=== PATIENT | female | born 1975 ===

== ENCOUNTER 2020-06-23 09:31 | Outpatient (REF) | payer OTHER, SELFPAY | END 2020-06-23 09:32 | disposition home or self-care (01) | LOC: HO.LAB 09:31 | PROVIDERS: PCP Internal Medicine; Visit Provider Internal Medicine | DX: Z20.822 Contact with and (suspected) exposure to COVID-19 (principal) | CPT/HCPCS: 36415; C9803; U0003 ==

== ENCOUNTER → 2020-07-15 15:19 | Outpatient (BNVA) | payer OTHER, SELFPAY | PROVIDERS: PCP Internal Medicine; Visit Provider Urology ==

== ENCOUNTER 2020-09-13 12:33 | Outpatient (REF) | payer OTHER, SELFPAY ==
[2020-09-13 15:58] LABS: SARS COV2 PCR INHOUSE NEGATIVE (Negative)
== END 2020-09-13 12:34 | disposition home or self-care (01) ==
LOC: HO.LAB 12:33
PROVIDERS: Visit Provider Internal Medicine
DX: Z20.822 Contact with and (suspected) exposure to COVID-19 (principal)
CPT/HCPCS: C9803; U0003

== ENCOUNTER 2020-10-27 09:25 | Emergency (ER) | payer OTHER, SELFPAY ==
--- NOTE | ~2020-10-27 | CT_ITS ---
EXAMINATION: CT ABDOMEN AND PELVIS WITHOUT CONTRAST CLINICAL INFORMATION: Right flank pain COMPARISON: Previous CT of the abdomen and pelvis October 2019 TECHNIQUE: Multidetector volumetric imaging was performed from the superior aspect of the liver through the pubic symphysis. Sagittal and coronal reformatted images were obtained on the technologist's workstation. This CT examination was performed using dose optimization techniques as appropriate, variously including the following: *Automated exposure control *Adjustment of mA and/or kV according to patient size (this includes techniques or standardized protocols for targeted exams where dose is matched to indication/reason for exam; i.e. extremities or head) *Use of iterative reconstruction technique DLP: 472 mGy-cm FINDINGS: LUNG BASES: The visualized lung bases are unremarkable. LIVER, GALLBLADDER, AND BILIARY TREE: The liver is normal in size, shape, and attenuation. No focal hepatic lesion or biliary ductal dilatation is present. The gallbladder is unremarkable with no evidence of radiopaque gallstones, gallbladder wall thickening, or obvious pericholecystic inflammatory changes. PANCREAS: Unremarkable. SPLEEN: Unremarkable. ADRENAL GLANDS: Unremarkable. KIDNEYS AND URETERS: The right kidney is small. There is severe right hydronephrosis. There is right renal cortical thinning suggestive of long-standing obstruction. There are 2 stones in the lower pole right kidney measuring 5 and 6 mm. There is serpiginous linear calcification along the periphery of the dilated calyces. This may be the residual of medullary nephrocalcinosis and long-standing hydronephrosis. There are 2 small stones in the right proximal ureter. There are multiple left renal stones suggestive of medullary nephrocalcinosis. There are large discrete stone seen. The largest are in the lower pole of the left kidney conforming to a calyceal cast measuring 1.1 x 1.8 cm. There is mild left hydronephrosis. No left ureteral stone is seen. BLADDER: Unremarkable. GASTROINTESTINAL TRACT: There is diverticulosis of the colon. The small and large bowel is otherwise unremarkable. The appendix is normal. The stomach is normal. ABDOMINAL WALL: There are postsurgical changes from right lateral abdominal wall hernia repair with mesh. LYMPH NODES: Normal. VASCULAR: Unremarkable. PELVIC VISCERA: The uterus retroverted and appears enlarged. This is similar to previous exams. Adnexa are unremarkable. OSSEOUS STRUCTURES: Unremarkable. CT/CT abdomen pelvis wo con IMPRESSION: Medullary nephrocalcinosis. Atrophic-appearing right kidney. Right hydronephrosis and cortical thinning suggestive of long-standing obstruction. There are 2 adjacent small right proximal ureteral stones. There are 2 stones in the lower pole of the right kidney largest measuring 6 mm. Multiple left renal stones, largest filling a lower pole calyx measuring 1.1 x 1.8 cm. Mild left hydronephrosis. No left ureteral stone seen. Diverticulosis of the colon.
[2020-10-27 09:27] VITALS: BP 120/76; PULSE 88; RESP 16; TEMP 36.9; O2SAT 100; BMI 25.9
[2020-10-27 09:53] VITALS: BP 138/81; PULSE 79; RESP 12; TEMP 36.6; O2SAT 100
--- NOTE | 2020-10-27 11:02 | ED.ABDPAIN ---
HPI - Abdominal Pain General Chief Complaint: General Medical Stated Complaint: kidney pain Time Seen by Provider: 10/27/20 10:39 Source: patient Mode of arrival: ambulatory Limitations: no limitations History of Present Illness HPI narrative: 45-year-old female with a past medical history of large kidney stones requiring surgery, chronic UTIs, anemia and hypertension presenting to the ED with complaints of right flank pain for the past week with associated generalized weakness. Reports that she followed up with her primary care provider for hypertension, urinary symptoms and concern for her anemia. Per her PCP notes that the patient brought in with her; the patient had moderate blood and heavy leukocytes and she could not exclude nephrolithiasis in conjunction with UTI therefore she explained to the patient that she should have a CT scan of her abdomen and pelvis to rule out kidney stones. Patient is being followed by Dr. Estevez the urologist and Dr. Schroeder the line painting machine operator. From her PCP notes patient is also supposed to be taking iron supplements for her iron deficiency anemia although she reports she has not been taking it due to the side effect of constipation. Therefore her PCP recommended stool softeners for alternative like iron infusions and I believe that they are still discussing this. MD elicited complaint: flank pain Pertinent past history: kidney stones Onset (ago): week(s) (One week) Pain Consistency: constant Location: R flank Severity: moderate Quality: aching Radiation: none Migration to: no migration Exacerbating factors: nothing Relieving factors: nothing Associated symptoms: other (General weakness and fatigue) Related Data Home Medications Medication Instructions Recorded Confirmed hydrochlorothiazide 12.5 mg tablet 12.5 mg PO DAILY 07/15/20 Previous Rx's Medication Instructions Recorded acetaminophen [Tylenol Extra 1,000 mg PO QID PRN #14 tab 10/27/20 Strength] docusate sodium [Colace] 100 mg PO BID PRN #14 cap 10/27/20 levofloxacin 250 mg PO DAILY 7 Days #7 tab 10/27/20 oxycodone 5 mg PO BID PRN #10 tab 10/27/20 polyethylene glycol 3350 [Miralax] 17 g PO DAILY #238 g 10/27/20 Allergies Allergy/AdvReac Type Severity Reaction Status Date / Time No Known Allergies Allergy Unknown NONE Verified 10/27/20 09:31 Review of Systems Review of Systems Constitutional : No Weight loss, No Fever, No Chills, No Night Sweats, No Fatigue, NoMalaise ENT/Mouth: No ear pain, No sore throat, No Difficulty swallowing Cardiovascular : No Chest Pain, No SOB, No Dyspnea on Exertion, No Orthopnea, NoEdema, No Palpitations Respiratory : No Cough, No Sputum, No Wheezing, No Dyspnea Gastrointestinal : positive r abd/flank pain, No Nausea, No Vomiting, No Diarrhea, No blood streaked emesis, No coffee-ground emesis, No gross hematemesis, No blood streak stool, No gross hematochezia, No Melena Genitourinary : No irregular bleeding, No Dysuria, No Urinary Frequency, No Hematuria,No Urinary Incontinence, No Urgency, No Flank Pain Musculoskeletal : No joint pain, No Myalgias, No Joint Swelling Skin : No Skin Lesions, No rash Neuro : positive general Weakness, No focal weakness, No Numbness, No Paresthesias, No Loss of Consciousness, No Dizziness, No Headache Psych : No Social Issues, Heme/Lymph: No Bruising, No Bleeding,No Lymphadenopathy Endocrine : No Polyuria, No Polydipsia, No Temperature Intolerance Yes all other systems are reviewed and are negative Physical Exam Vital Signs: Vital Signs: Last Vital Signs Temp 97.8 F 10/27/20 09:53 Pulse 79 10/27/20 09:53 Resp 12 10/27/20 09:53 BP 138/81 10/27/20 09:53 Pulse Ox 100 10/27/20 09:53 Body Mass Index 25.9 vital signs have been reviewed as normal and appeared to be correct. Blood pressure normal. Heart rate normal. Respiration rate normal. Temperature normal. Oxygen saturation normal. Appearance: Alert. Oriented X3. No acute distress. Head: Normal external exam. Normocephalic. Eyes: PERRLA. EOMI. Conjunctiva and sclera normal. Eyelids normal. ENT: Pharynx normal. Uvula midline. Moist mucous membranes. Neck: Normal inspection. Neck supple. FROM. No adenopathy. No meningeal signs. CVS: Normal heart rate and rhythm. Heart sound normal. No murmurs noted. Pulses normal throughout. Respiratory: No respiratory distress. Painless inspiration. Breath sounds normal. No wheezes/rales/rhonchi noted. Chest nontender. No accessory muscle usage noted or decreased air movement noted. Abdomen: Soft and tender to palpation to right flank with guarding. Nondistended. No rigidity. Bowel sounds normal in all 4 quadrants. No distention noted. No organomegaly noted. No visible injury noted. No rebound tenderness. Negative Rovsing sign. Negative obturator's sign. Negative psoas sign. Negative Flores sign. Back: Positive right CVA tenderness. No left CVA tenderness is noted. Full range of motion noted. Skin: Skin warm and dry. Normal skin color. Normal skin turgor. No rashes/lesions/lacerations noted. Extremities: Extremities exhibit normal range of motion. Extremities nontender. Neuro: Oriented X 3. No motor deficit. No sensory deficit. Reflexes normal. Normal steady gait. Course Course Course Narrative: 13:30 - labs reviewed and patient with an elevated white blood cell count at 11,000. - Mild anemia H&H at 9.4/32.5 this is lower when compared to 10/22/2019 which was 11.5/37.4.= I offered to obtain a stool occult although patient declined at this time reports that she just needs her iron supplements along with stool softeners due to she is not taking her iron supplements because they never prescribed her stool softeners. - BUN and creatinine 27/1.53 GFR of 37. This is similar when compared to patient's priors. - UA revealed leukocytes patient most likely a UTI. Serum quant negative for . - all other labs are within normal limits. - CT scan of abdomen and pelvis revealed stones to bilateral kidneys although she has chronic obstruction to the right with hydronephrosis. Therefore consulted with Dr. Estevez the urologist and he reported the pending on how the patient presented that he could take admit her for possible procedure - although when I went in to explain to the patient she reported that she will not be staying here for surgery that she needs to take care of her son situation before she states here in the hospital for surgery. Therefore will give L of IV fluids and will DC home with antibiotics and symptomatic treatment instructions to follow up with Dr. Estevez until follow-up with primary care provider as well. Patient understands agrees with this plan. MDM - Abdominal Pain MDM Narrative Medical decision making narrative: 10:55am -45-year-old female with a past medical history of large kidney stones requiring surgery, chronic UTIs, anemia and hypertension presenting to the ED with complaints of right flank pain for the past week with associated generalized weakness. Reports that she followed up with her primary care provider for hypertension, urinary symptoms and concern for her anemia. Had outpatient follow-up with PCP PCP unable to exclude nephrolithiasis in conjunction with UTI due to moderate leukocytes and hematuria and UA therefore sent here for further evaluation treatment for CT scan of abdomen and pelvis. - Plan: Labs, UA, UHCG, CT scan of abdomen and pelvis without IV contrast then re-evaluate. Patient declined any IV fluids or any pain medications at this time. Medical Records Attestation: I reviewed the patient's medical records. Lab Data Attestation: I reviewed the patient's lab results. Result diagrams: 10/27/20 11:26 10/27/20 11:26 Labs: Lab Results 10/27/20 10/27/20 10/27/20 Range/Units 11:26 11:26 11:26 WBC 11.0 H (4.8-10.8) X10*3/uL RBC 4.16 L (4.20-5.50) X10*6/uL Hgb 9.4 L (12.0-16.0) g/dl Hct 32.5 L (37-47) % MCV 78.1 L (80-98) fL MCH 22.6 L (27.0-33.0) pg MCHC 28.9 L (31.0-35.0) g/dl RDW 19.1 H (11.0-16.0) % Plt Count 386 (160-400) X10*3/uL MPV 10.0 (9.4-12.3) fL Immature Gran % (Auto) 0.5 H (0.0-0.4) % Neut % (Auto) 73.2 H (45-73) % Lymph % (Auto) 14.4 L (20-40) % [place] % (Auto) 10.0 (2-11) % Eos % (Auto) 1.3 (0-4) % Baso % (Auto) 0.6 (0-2) % Lymph # (Auto) 1.6 (1.2-4.9) X10*3/uL [place] # (Auto) 1.1 (0.1-1.2) X10*3/uL Eos # (Auto) 0.1 (0.0-0.4) X10*3/uL Baso # (Auto) 0.1 (0.0-0.2) X10*3/uL Abs Immat Gran (auto) 0.05 H (0.00-0.03) X10*3/uL Absolute Neuts (auto) 8.0 (2.0-8.3) X10*3/uL Absolute Nucleated RBC 0.000 (0.0-0.012) X10*3/uL Nucleated RBC % (auto) 0.0 (0.0-0.2) /100WBC PT 11.8 (10.8-13.0) SEC INR 1.0 (0.9-1.1) Sodium (135-145) mmol/L Potassium (3.3-5.1) mmol/L Chloride (96-108) mmol/L Carbon Dioxide (22-29) mmol/L Anion Gap (12-20) BUN (9-16) mg/dL Creatinine (0.5-1.4) mg/dL Estim Creat Clear Calc Estimated GFR Random Glucose (60-115) mg/dL Calcium (8.4-10.2) mg/dL Magnesium 2.2 (1.6-2.6) mg/dL Total Bilirubin (0.0-1.0) mg/dL AST (5-31) U/L ALT (0-31) U/L Alkaline Phosphatase (39-117) U/L Total Protein (6.5-8.0) g/dL Albumin (3.5-5.0) g/dL Lipase (8-78) U/L Beta HCG, Quant mIU/mL Urine Color Urine Appearance Urine pH (5.0-8.0) Ur Specific [place] (1.005-1.025) Urine Protein (NEG-TRACE) MG/DL Urine Glucose (UA) (NEG) MG/DL Urine Ketones (NEG) MG/DL Urine Blood (NEG) Urine Nitrite (NEG) Ur Leukocyte Esterase (NEG) Urine RBC (0) /HPF Urine WBC (0-4) /HPF Urine WBC Clumps Ur Squamous Epith Cells /LPF Ur Renal Epithelial Cell /LPF Urine Bacteria /LPF 10/27/20 10/27/20 Range/Units 11:26 11:26 WBC (4.8-10.8) X10*3/uL RBC (4.20-5.50) X10*6/uL Hgb (12.0-16.0) g/dl Hct (37-47) % MCV (80-98) fL MCH (27.0-33.0) pg MCHC (31.0-35.0) g/dl RDW (11.0-16.0) % Plt Count (160-400) X10*3/uL MPV (9.4-12.3) fL Immature Gran % (Auto) (0.0-0.4) % Neut % (Auto) (45-73) % Lymph % (Auto) (20-40) % [place] % (Auto) (2-11) % Eos % (Auto) (0-4) % Baso % (Auto) (0-2) % Lymph # (Auto) (1.2-4.9) X10*3/uL [place] # (Auto) (0.1-1.2) X10*3/uL Eos # (Auto) (0.0-0.4) X10*3/uL Baso # (Auto) (0.0-0.2) X10*3/uL Abs Immat Gran (auto) (0.00-0.03) X10*3/uL Absolute Neuts (auto) (2.0-8.3) X10*3/uL Absolute Nucleated RBC (0.0-0.012) X10*3/uL Nucleated RBC % (auto) (0.0-0.2) /100WBC PT (10.8-13.0) SEC INR (0.9-1.1) Sodium 138 (135-145) mmol/L Potassium 3.4 (3.3-5.1) mmol/L Chloride 101 (96-108) mmol/L Carbon Dioxide 29 (22-29) mmol/L Anion Gap 11 L (12-20) BUN 27 H (9-16) mg/dL Creatinine 1.53 H (0.5-1.4) mg/dL Estim Creat Clear Calc 41.7 Estimated GFR 37 Random Glucose 86 (60-115) mg/dL Calcium 9.3 (8.4-10.2) mg/dL Magnesium (1.6-2.6) mg/dL Total Bilirubin 0.3 (0.0-1.0) mg/dL AST 13 (5-31) U/L ALT 9 (0-31) U/L Alkaline Phosphatase 57 (39-117) U/L Total Protein 6.9 (6.5-8.0) g/dL Albumin 3.9 (3.5-5.0) g/dL Lipase 35 (8-78) U/L Beta HCG, Quant < 2 mIU/mL Urine Color YELLOW Urine Appearance HAZY Urine pH 6.5 (5.0-8.0) Ur Specific [place] 1.015 (1.005-1.025) Urine Protein NEG (NEG-TRACE) MG/DL Urine Glucose (UA) NEG (NEG) MG/DL Urine Ketones NEG (NEG) MG/DL Urine Blood 1+ H (NEG) Urine Nitrite NEG (NEG) Ur Leukocyte Esterase 2+ H (NEG) Urine RBC 5-9 H (0) /HPF Urine WBC 76-150 H (0-4) /HPF Urine WBC Clumps NOTED Ur Squamous Epith Cells 2+ /LPF Ur Renal Epithelial Cell TRACE /LPF Urine Bacteria TRACE /LPF Imaging Data CT scan abdomen pelvis without IV contrast: Attestation: I personally reviewed and interpreted this imaging study as follows: Radiologist's impression: IMPRESSION: Medullary nephrocalcinosis. Atrophic-appearing right kidney. Right hydronephrosis and cortical thinning suggestive of long-standing obstruction. There are 2 adjacent small right proximal ureteral stones. There are 2 stones in the lower pole of the right kidney largest measuring 6 mm. Multiple left renal stones, largest filling a lower pole calyx measuring 1.1 x 1.8 cm. Mild left hydronephrosis. No left ureteral stone seen. Diverticulosis of the colon. Discharge Plan Discharge Clinical Impression: Nephroureterolithiasis, Chronic UTI, SHREYA (acute kidney injury), Anemia Patient Disposition: Home, Self-Care Instructions: Kidney Stones (ED), Urinary Tract Infection in (ED) Prescriptions: New levofloxacin 250 mg tablet 250 mg PO DAILY 7 Days Qty: 7 RF: 0 docusate sodium [Colace] 100 mg capsule 100 mg PO BID PRN (Reason: Constipation) Qty: 14 RF: 0 polyethylene glycol 3350 [Miralax] 17 gram/dose powder 17 g PO DAILY Qty: 238 RF: 0 acetaminophen [Tylenol Extra Strength] 500 mg tablet 1,000 mg PO QID PRN (Reason: fever or pain) Qty: 14 RF: 0 oxycodone 5 mg tablet 5 mg PO BID PRN (Reason: pain) Qty: 10 RF: 0 Referrals: Jourdan Estevez MD [Physician] - 2 days Tee Leone MD [Primary Care Provider] - 2 days Print Language: Greenlandic REPLACED BY [facility] Past Medical History Attestation statement: The following information was validated with the patient. Medical History Acute cystitis with hematuria Anemia Chronic UTI HTN (hypertension) Nephroureterolithiasis Renal stones Social History Social History Alcohol intake: current Alcohol intake frequency: a few times a week Alcohol type: beer and hard liquor Smoking Status: Former smoker Smoked in Last 30 Days: No Use of substances other than those prescribed or required for medical reasons: Yes Substance Use Type: Marijuana Substance Use Frequency: Occasionally Last Used Substance: Days (ago) Any prior treatment program specific to substance use: No Advance Directives: Yes Advance Directives Information Provided: No Advance Directives on File: No Patient : No
--- NOTE | 2020-10-27 11:15 | ED.GENADULT ---
HPI - General Adult General Chief complaint: General Medical Stated complaint: kidney pain Time Seen by Provider: 10/27/20 10:39 Source: patient Mode of arrival: ambulatory Limitations: no limitations Related Data Home Medications Medication Instructions Recorded Confirmed hydrochlorothiazide 12.5 mg tablet 12.5 mg PO DAILY 07/15/20 Allergies Allergy/AdvReac Type Severity Reaction Status Date / Time No Known Allergies Allergy Unknown NONE Verified 10/27/20 09:31 Review of Systems Review of Systems: Constitutional : No Weight loss, No Fever, No Chills, No Night Sweats, No Fatigue, No Malaise ENT/Mouth : No Hearing loss, No Ear Pain, No Nasal Congestion, No Sinus Pain, No Hoarseness, No sore throat, No Rhinorrhea, No Swallowing Difficulty Eyes: No Eye Pain, No Swelling, No Redness, No Foreign Body, No Discharge, No Vision Changes Cardiovascular : No Chest Pain, No SOB, No Dyspnea on Exertion, No Orthopnea, No Edema, No Palpitations Respiratory : No Cough, No Sputum, No Wheezing, No Smoke Exposure, No Dyspnea Gastrointestinal : No Nausea, No Vomiting, No Diarrhea, No Constipation, No abdominal Pain, No Hematochezia, No Melena Genitourinary : no irregular bleeding, No Dysuria, No Urinary Frequency, No Hematuria, No Urinary Incontinence, No Urgency, No Flank Pain, No Urinary Flow Changes, No Hesitancy Musculoskeletal : No joint pain, No Myalgias, No Joint Swelling Skin : No Skin Lesions, No rash Neuro : No Weakness, No Numbness, No Paresthesias, No Loss of Consciousness, No Dizziness, No Headache Psych : No Anxiety/Panic, No Depression, No SI/HI/AH/VH, No Social Issues, Heme/Lymph: No Bruising, No Bleeding,No Lymphadenopathy Endocrine : No Polyuria, No Polydipsia, No Temperature Intolerance FOR[facility] Past Medical History Medical History (Updated 10/27/20 @ 10:43 by TARIQ Nuñez) Acute cystitis with hematuria Anemia Chronic UTI HTN (hypertension) Nephroureterolithiasis Renal stones Social History Social History (Updated 07/15/20 @ 15:22 by DENNY Malone) Alcohol intake: current Alcohol intake frequency: a few times a week Alcohol type: beer and hard liquor Smoking Status: Former smoker Smoked in Last 30 Days: No Use of substances other than those prescribed or required for medical reasons: Yes Substance Use Type: Marijuana Substance Use Frequency: Occasionally Last Used Substance: Days (ago) Any prior treatment program specific to substance use: No Advance Directives: Yes Advance Directives Information Provided: No Advance Directives on File: No Patient : No Physical Exam Vital Signs: Vital Signs: Last Vital Signs Temp 97.8 F 10/27/20 09:53 Pulse 79 10/27/20 09:53 Resp 12 10/27/20 09:53 BP 138/81 10/27/20 09:53 Pulse Ox 100 10/27/20 09:53 Body Mass Index 25.9 vital signs have been reviewed as normal and appeared to be correct. Blood pressure normal. Heart rate normal. Respiration rate normal. Temperature normal. Oxygen saturation normal. Appearance: Alert. Oriented X3. No acute distress. Head: Normal external exam. Normocephalic. Atraumatic. No Rouse signs noted. No raccoon eyes noted Eyes: PERRLA. EOMI. Conjunctiva and sclera normal. Eyelids normal. ENT: EAC normal. TM's Normal. Pharynx normal. Uvula midline. Moist mucous membranes. No trismus noted. No drooling noted. No muffled voice noted. Neck: Normal inspection. Neck supple. FROM. No adenopathy. Thyroid Normal. No meningeal signs. No neck mass noted. CVS: Normal heart rate and rhythm. Heart sound normal. No murmurs noted. Pulses normal throughout. Respiratory: No respiratory distress. Painless inspiration. Breath sounds normal. No wheezes/rales/rhonchi noted. Chest nontender. No accessory muscle usage noted or decreased air movement noted. Abdomen: Soft and nontender. Bowel sounds normal in all 4 quadrants. No distention noted. No organomegaly noted. No visible injury noted. Back: No CVA tenderness. Full range of motion noted. Skin: Skin warm and dry. Normal skin color. Normal skin turgor. No rashes/lesions/lacerations noted. Extremities: No lower extremity edema. Extremities exhibit normal range of motion. Extremities nontender. Neuro: Oriented X 3. No motor deficit. No sensory deficit. Reflexes normal.
[2020-10-27 11:41] LABS: MANUAL DIFF FLAG NO
[2020-10-27 11:48] LABS: Appearance Urine HAZY; Basophils Absolute Auto 0.1 X10*3/uL (0.0-0.2); Basophils Percent Auto 0.6 % (0-2); Color Urine YELLOW; Eosinophils Absolute Auto 0.1 X10*3/uL (0.0-0.4); Eosinophils Percent Auto 1.3 % (0-4); Glucose Urine UA NEG (NEG); Hematocrit 32.5 % (37-47); Hemoglobin 9.4 g/dl (12.0-16.0); Imm Gran Abs Auto 0.05 X10*3/uL (0.00-0.03); Imm Gran Pct Auto 0.5 % (0.0-0.4); Leukocyte Esterase Urine 2+ (NEG); Lymphocytes Absolute Auto 1.6 X10*3/uL (1.2-4.9); Lymphocytes Percent Auto 14.4 % (20-40); Mean Corpuscular HGB Conc 28.9 g/dl (31.0-35.0); Mean Corpuscular Hemoglobin 22.6 pg (27.0-33.0); Mean Corpuscular Volume 78.1 fL (80-98); Monocytes Absolute Auto 1.1 X10*3/uL (0.1-1.2); Neutrophils Percent Auto 73.2 % (45-73); Nitrite Urine NEG (NEG); PH 6.5 (5.0-8.0); Platelet Count 386 X10*3/uL (160-400); Red Blood Count 4.16 X10*6/uL (4.20-5.50); Red Cell Distribution Width 19.1 % (11.0-16.0); Specific Gravity - Urine 1.015 (1.005-1.025); UACC Culture Trigger YES; Urine Blood 1+ (NEG); Urine Ketones NEG (NEG); Urine Protein NEG (NEG-TRACE)
[2020-10-27 11:51] LABS: Prothrombin Time 11.8 SEC (10.8-13.0)
[2020-10-27 11:57] LABS: Bacteria Urine TRACE /LPF; Renal Epithelial Cells Urine TRACE /LPF; Squamous Epithelial Cell Urine 2+ /LPF; WBC Clumps Urine NOTED
[2020-10-27 12:16] LABS: Alanine Aminotransferase 9 U/L (0-31); Albumin Level 3.9 g/dL (3.5-5.0); Alkaline Phosphatase 57 U/L (39-117); Anion Gap 11 (12-20); Aspartate Amino Transferase 13 U/L (5-31); Bilirubin Total 0.3 mg/dL (0.0-1.0); Blood Urea Nitrogen 27 mg/dL (9-16); Calcium 9.3 mg/dL (8.4-10.2); Carbon Dioxide 29 mmol/L (22-29); Chloride 101 mmol/L (96-108); Creatinine Clr Calc Pharmacy 41.7; Estimated Glomerular Filt Rate 37; Glucose Random 86 mg/dL (60-115); Lipase 35 U/L (8-78); Magnesium 2.2 mg/dL (1.6-2.6); Potassium 3.4 mmol/L (3.3-5.1); Sodium 138 mmol/L (135-145); Total Protein 6.9 g/dL (6.5-8.0)
[2020-10-27 12:22] LABS: HCG Quantitative < 2 mIU/mL
[2020-10-27] MEDS: levoFLOXacin 250 MG TABLET PO (14:01)
--- NOTE | 2020-10-27 14:10 | PC.NURSE ---
PT REFUSING IV SINCE ARRIVAL TO ED, REFUSING IVF. PA AWARE. MEDICATED WITH ABX.
== END 2020-10-27 14:12 | disposition home or self-care (01) ==
PROVIDERS: Physician Assistant Medical; Emergency Provider Emergency Medicine Emergency Medical Services; PCP Internal Medicine
DX: N20.2 Calculus of kidney with calculus of ureter (principal); N23 Unspecified renal colic; N39.0 Urinary tract infection, site not specified; D64.9 Anemia, unspecified; F12.90 Cannabis use, unspecified, uncomplicated; I10 Essential (primary) hypertension; Z79.899 Other long term (current) drug therapy; Z87.891 Personal history of nicotine dependence
CPT/HCPCS: 36415; 74176; 80053; 81001; 81003; 83690; 83735; 84702; 85025; 85610; 87086; 96360; 99284

== ENCOUNTER → 2020-10-28 11:37 | Outpatient (BNVA) | payer OTHER, SELFPAY | PROVIDERS: PCP Internal Medicine; Visit Provider Urology ==

== ENCOUNTER 2020-11-02 14:03 | Emergency (ER) | payer OTHER, SELFPAY ==
--- NOTE | ~2020-11-02 | US_ITS ---
EXAMINATION: US VENOUS ULTRASOUND WITH DOPPLER LOWER EXTREMITY, LEFT CLINICAL INFORMATION: Left lower extremity swelling COMPARISON: None TECHNIQUE: Ultrasound of the deep veins is performed from the hip to the calf with compression sonography and color and pulse Doppler assessment. Spectral analysis with color-flow imaging is performed. FINDINGS: There is normal venous compression and respiratory variation and augmented flow. The visualized common femoral vein, superficial femoral vein, profunda femoral vein, popliteal vein, and the trifurcation region shows no evidence of deep venous thrombosis. There is no significant popliteal fossa cyst. Limited evaluation through the posterior ankle joint reveals no fluid collection or obvious tears involving the tendon fibers. If the patient's symptoms persist, followup ultrasound in 5 days 7 days might be of value to exclude proximal propagation from a non-visualized calf vein. US/US venous duplex LE LT IMPRESSION: No DVT demonstrated in the left lower extremity. No abnormality seen involving the Achilles tendon or fluid collection.
[2020-11-02 14:56] VITALS: BP 173/117; PULSE 75; RESP 17; O2SAT 96; BMI 27.3
--- NOTE | 2020-11-02 15:50 | ED_ITS ---
HPI - Extremity Problem General Chief complaint: Extremity Problem Stated complaint: l leg issue Time Seen by Provider: 11/02/20 15:13 Source: patient Mode of arrival: ambulatory History of Present Illness HPI Narrative: 45-year-old female with a past medical history of anemia, chronic UTI, HTN, nephroureterolithiasis, renal stones on Levaquin for UTI, presenting to the ED complaining of left lower extremity swelling, pain, and numbness/ paresthesias since this morning. Reports decreased sensation to leg/muscle cramping, however admits symptoms improving since onset. Denies symptoms in other focality in the body. Denies weakness, fever, chills, SOB/CP, oral OCPs, recent travel/long car rides, or history of blood clots. Does not take anticoagulation. MD Complaint: extremity swelling Related Data Home Medications Medication Instructions Recorded Confirmed hydrochlorothiazide 12.5 mg tablet 12.5 mg PO DAILY 07/15/20 Previous Rx's Medication Instructions Recorded acetaminophen [Tylenol Extra 1,000 mg PO QID PRN #14 tab 10/27/20 Strength] docusate sodium [Colace] 100 mg PO BID PRN #14 cap 10/27/20 ferrous sulfate 325 mg PO DAILY #30 tab 10/27/20 levofloxacin 250 mg PO DAILY 7 Days #7 tab 10/27/20 oxycodone 5 mg PO BID PRN #10 tab 10/27/20 polyethylene glycol 3350 [Miralax] 17 g PO DAILY #238 g 10/27/20 Allergies Allergy/AdvReac Type Severity Reaction Status Date / Time No Known Allergies Allergy Unknown NONE Verified 11/02/20 14:56 Review of Systems Review of Systems: Constitutional: No Fever, No Chills Cardiovascular: No Chest Pain, No SOB, + Edema Respiratory: No Cough, No Dyspnea Gastrointestinal: No Nausea, No Vomiting, No Abdominal pain Musculoskeletal: +LLE pain, No Myalgias, +LLE Swelling Skin: No Skin Lesions, No rash Neuro: No Weakness, No Numbness, No Paresthesias, No Headache Yes all other systems are reviewed and are negative Neurologic: Denies Sensory deficit (Neuro) PMFSH Past Medical History Attestation statement: The following information was validated with the patient. Medical History Acute cystitis with hematuria Anemia Chronic UTI HTN (hypertension) Nephroureterolithiasis Renal stones Social History Social History Alcohol intake: current Alcohol intake frequency: a few times a week Alcohol type: beer and hard liquor Smoking Status: Former smoker Substance Use Type: Marijuana Advance Directives: No Advance Directives Information Provided: No Physical Exam Vital Signs: Vital Signs: Last Vital Signs Pulse 75 11/02/20 14:56 Resp 17 11/02/20 14:56 BP 173/117 H 11/02/20 14:56 Pulse Ox 96 11/02/20 14:56 Body Mass Index 27.3 Const: General: cooperative and healthy appearing Orientation/consciousness: patient oriented x3 Limitations: no limitations HENMT: Head: Yes normal to inspection Ears: hearing grossly normal bilaterally General nose exam: Normal external nose present Face and sinus: Yes normal facial exam Eyes: General: appearance normal, both eyes and all related structures EOM: EOMs intact bilaterally Neck: Neck: Yes normal visual inspection Resp: Effort & Inspection: normal respiratory effort Cardio: Rate: regular rate Peripheral pulses: dorsalis pedis present GI: Inspection: Yes normal to inspection Skin: Rashes: no rashes Wounds: no wounds Neuro: Other: Sensation intact to light touch General: patient oriented x3, gait normal, tone normal and moves all extremities Gait exam (Neuro): Normal gait present Motor exam (neuro): 5/5 motor strength present throughout Sensory Exam: No Sensory deficit (Neuro) Extrem: Other: No Achilles tendon tenderness or inflammation. Negative Thomp son test General: Yes normal to inspection, Yes no calf tenderness and Yes pedal edema (1+ edema to left lower extremity) Course Course Course Narrative: US venous duplex LE LT IMPRESSION: No DVT demonstrated in the left lower extremity. No abnormality seen involving the Achilles tendon or fluid collection. >> results discussed with patient including worrisome signs and symptoms and strict return precautions, she verbalized understanding feel safe for discharge home MDM - Extremity (Nontraumatic) MDM Narrative Medical decision making narrative: 45-year-old female with a past medical history of anemia, chronic UTI, HTN, nephroureterolithiasis, renal stones on Levaquin for UTI, presenting to the ED complaining of left lower extremity swelling, pain, and numbness/paresthesias since this morning. On exam VSS, NAD, physical exam as above, slight edema to LLE qith negative Suarez test, no A chilles tendon abnormality appreciated. No focal neuro deficits. Concern for DVT vs edema vs paresthesias. Lower concern for Achilles tendon rupture without tenderness. Plan: Venous duplex and evaluate Achilles tendon on ultrasound Discharge Plan Discharge Clinical Impression: Acute pain of left lower extremity Patient Disposition: Home, Self-Care Instructions: Leg Pain (ED) Additional Instructions: Your ultrasound was negative for any blood clots or Achilles tendon abnormality Elevate your leg Rest Take Tylenol /Motrin for pain/swelling You should wear compression stockings Follow-up with her doctor If her symptoms persist or worsen, you develop numbness, tingling, weakness, area begins to look infected return to the ED Prescriptions: No Action levofloxacin 250 mg tablet 250 mg PO DAILY 7 Days Qty: 7 RF: 0 docusate sodium [Colace] 100 mg capsule 100 mg PO BID PRN (Reason: Constipation) Qty: 14 RF: 0 polyethylene glycol 3350 [Miralax] 17 gram/dose powder 17 g PO DAILY Qty: 238 RF: 0 acetaminophen [Tylenol Extra Strength] 500 mg tablet 1,000 mg PO QID PRN (Reason: fever or pain) Qty: 14 RF: 0 oxycodone 5 mg tablet 5 mg PO BID PRN (Reason: pain) Qty: 10 RF: 0 ferrous sulfate 325 mg (65 mg iron) tablet 325 mg PO DAILY Qty: 30 RF: 0 Referrals: Tee Leone MD [Primary Care Provider] - 5 days
[2020-11-02 17:19] VITALS: BP 116/77; PULSE 90; RESP 14; TEMP 36.9; O2SAT 100
== END 2020-11-02 17:25 | disposition home or self-care (01) ==
PROVIDERS: Emergency Provider Internal Medicine; PCP Internal Medicine
DX: M79.662 Pain in left lower leg (principal); R22.42 Localized swelling, mass and lump, left lower limb; I10 Essential (primary) hypertension; Z87.442 Personal history of urinary calculi; Z87.440 Personal history of urinary (tract) infections
CPT/HCPCS: 93971; 99284

== ENCOUNTER 2020-12-17 12:17 | Inpatient (IN) | payer OTHER, SELFPAY ==
[2020-12-17 12:28] VITALS: BP 138/96; BP 142/84; PULSE 78; PULSE 98; RESP 16; TEMP 36.6; O2SAT 100; O2SAT 99; BMI 27.3
[2020-12-17 12:41] VITALS: BP 155/105; PULSE 71; RESP 16; O2SAT 98
[2020-12-17] MEDS: LORazepam 1 MG TABLET PO (12:52)
--- NOTE | 2020-12-17 12:55 | ED.ANXIETY ---
HPI - Anxiety General Chief Complaint: Anxiety <Loretta Mills NP - Last Filed: 12/17/20 19:29> Stated Complaint: anxiety <Loretta Mills NP - Last Filed: 12/17/20 19:29> Time Seen by Provider: 12/17/20 12:36 <Loretta Mills NP - Last Filed: 12/17/20 19:29> Source: patient <Loretta Mills NP - Last Filed: 12/17/20 19:29> Mode of arrival: ambulatory <Loretta Mills NP - Last Filed: 12/17/20 19:29> Limitations: no limitations <Loretta Mills NP - Last Filed: 12/17/20 19:29> History of Present Illness HPI narrative: 45-year-old female with a past medical history of anxiety here with complaints of increasing anxiety with panic attacks over the last 1 month. The patient tells me she had been taking 0.5 mg of Ativan as needed for anxiety. However, due to COVID she has been unable to establish a new psychiatrist and does not currently have a prescribing psychiatrist. She does have a therapist through [facility] on whose name is Loli that she has been seeing regularly. She is on a waiting list for psychiatrist. She tells me she has had multiple life stresses over the last month which may be contributing to her anxiety. She tells me that she recently had a personal video that was released (to the web) which has caused her to believe that people <Loretta Mills NP - Last Filed: 12/17/20 19:29> Related Data Home Medications: Home Medications Medication Instructions Recorded Confirmed hydrochlorothiazide 12.5 mg tablet 12.5 mg PO DAILY 07/15/20 12/17/20 hydrochlorothiazide 1 tab PO DAILY 12/17/20 12/17/20 lorazepam 2 tab PO Q6H PRN 12/17/20 12/17/20 multivitamin 1 tab PO DAILY 12/17/20 12/17/20 <Loretta Mills NP - Last Filed: 12/17/20 19:29> Allergies/Adverse Reactions: Allergies Allergy/AdvReac Type Severity Reaction Status Date / Time No Known Allergies Allergy Unknown NONE Verified 11/02/20 14:56 <Loretta Mills NP - Last Filed: 12/17/20 19:29> Review of Systems Review of Systems: Yes all other systems are reviewed and are negative <Loretta Mills NP - Last Filed: 12/17/20 19:29> Constitutional: Constitutional: Reports no additional constitutional complaints, Denies body ache(s), Denies chills, Denies fever(s), Denies headache(s) and Denies weakness <Loretta Mills NP - Last Filed: 12/17/20 19:29> Eyes: Eyes: Reports no additional eye complaints and Denies change in vision <Loretta Mills NP - Last Filed: 12/17/20 19:29> ENT: Reports system reviewed and no additional complaints, except as documented, Denies dizziness, Denies headache(s), Denies nasal congestion, Denies nasal discharge and Denies neck pain <Loretta Mills NP - Last Filed: 12/17/20 19:29> Cardiovascular: Cardiovascular: Reports no additional cardiovascular complaints, Denies chest pain, Denies leg edema and Denies dyspnea <Loretta Mills NP - Last Filed: 12/17/20 19:29> Respiratory: Respiratory: Reports no additional respiratory complaints, Denies cough and Denies dyspnea <Loretta Mills NP - Last Filed: 12/17/20 19:29> Gastrointestinal: Gastrointestinal: Reports no additional gastrointestinal complaints, Denies abdominal pain, Denies diarrhea, Denies nausea and Denies vomiting <Loretta Mills NP - Last Filed: 12/17/20 19:29> Genitourinary: Genitourinary: Reports no additional female genitourinary complaints and Denies urinary incontinence <Loretta Mills NP - Last Filed: 12/17/20 19:29> Musculoskeletal: Musculoskeletal: Reports no additional musculoskeletal complaints, Denies back pain, Denies arthralgias, Denies joint swelling, Denies neck pain, Denies numbness and Denies tingling <Loretta Mills NP - Last Filed: 12/17/20 19:29> Integumentary/Breasts: Skin/Breast: Reports system reviewed and no additional complaints, except as docu and Denies rash <Loretta Mills NP - Last Filed: 12/17/20 19:29> Neurologic: Reports system reviewed and no additional complaints, except as documented, Denies Abnormal speech present, Denies dizziness, Denies headache(s), Denies numbness, Denies tingling and Denies weakness <Loretta Mills NP - Last Filed: 12/17/20 19:29> Psychiatric: Psychiatric: Reports anxiety, Denies depression, Denies hallucinations, Denies homicidal ideation and Denies suicidal ideation <Loretta Mills NP - Last Filed: 12/17/20 19:29> [facility] Past Medical History Attestation statement: The following information was validated with the patient. <Loretta Mills NP - Last Filed: 12/17/20 19:29> Source: old records reviewed and nursing notes reviewed <Loretta Mills NP - Last Filed: 12/17/20 19:29> Medical History: Medical History Acute cystitis with hematuria Anemia Chronic UTI HTN (hypertension) Nephroureterolithiasis Renal stones <Loretta Mills NP - Last Filed: 12/17/20 19:29> Social History Social History: Social History Alcohol intake: current Alcohol intake frequency: a few times a week Alcohol type: beer and hard liquor Substance Use Type: Marijuana Advance Directives: Yes Advance Directives Information Provided: Yes Advance Directives on File: No Healthcare Proxy: No Guardian: No <Loretta Mills NP - Last Filed: 12/17/20 19:29> Physical Exam Vital Signs: Vital Signs: Last Vital Signs Temp 98.3 F 12/18/20 08:10 Pulse 88 12/18/20 08:10 Resp 16 12/18/20 08:10 BP 109/84 12/18/20 08:10 Pulse Ox 99 12/18/20 08:10 Body Mass Index 27.3 <Loretta Mills NP - Last Filed: 12/17/20 19:29> Vital Signs: Last Vital Signs Temp 98.3 F 12/18/20 08:10 Pulse 88 12/18/20 08:10 Resp 16 12/18/20 08:10 BP 109/84 12/18/20 08:10 Pulse Ox 99 12/18/20 08:10 Body Mass Index 27.3 <Latanya Zimmerman DO - Last Filed: 12/18/20 09:05> Const: General: anxious <Loretta Mills NP - Last Filed: 12/17/20 19:29> Orientation/consciousness: patient oriented x3 <Loretta Mills NP - Last Filed: 12/17/20 19:29> Limitations: no limitations <Loretta Mills NP - Last Filed: 12/17/20 19:29> HENMT: Head: Yes normal to inspection <Loretta Mills NP - Last Filed: 12/17/20 19:29> Ears: hearing grossly normal bilaterally <Loretta Mills NP - Last Filed: 12/17/20 19:29> General nose exam: Normal external nose present <Loretta Mills NP - Last Filed: 12/17/20 19:29> Face and sinus: Yes normal facial exam <Loretta Mills NP - Last Filed: 12/17/20 19:29> Mouth: Normal oral and palatal mucosa present <Loretta Mills NP - Last Filed: 12/17/20 19:29> Throat: Yes posterior oropharynx normal <Loretta Mills NP - Last Filed: 12/17/20 19:29> Eyes: General: appearance normal, both eyes and all related structures <Loretta Mills NP - Last Filed: 12/17/20 19:29> Pupils: Equal, round and reactive pupils present <Loretta Mills NP - Last Filed: 12/17/20 19:29> Neck: Neck: Yes normal visual inspection <Loretta Mills NP - Last Filed: 12/17/20 19:29> Chest: Chest palpation & inspection: normal inspection of the chest <Loretta Mills NP - Last Filed: 12/17/20 19:29> Resp: Effort & Inspection: normal respiratory effort <Loretta Mills NP - Last Filed: 12/17/20 19:29> Auscultation: clear to auscultation bilaterally <Loretta Mills NP - Last Filed: 12/17/20 19:29> Cardio: Rate: regular rate <Lroetta Mills NP - Last Filed: 12/17/20 19:29> Rhythm: regular rhythm <Loretta Mills NP - Last Filed: 12/17/20 19:29> Peripheral pulses: Peripheral pulses 2+ throughout <Loretta Mills NP - Last Filed: 12/17/20 19:29> GI: Inspection: Yes normal to inspection <Loretta Mills NP - Last Filed: 12/17/20 19:29> Palpation (GI): Soft to palpation and nontender <Loretta Mills NP - Last Filed: 12/17/20 19:29> Auscultation: normal bowel sounds <Loretta Mills NP - Last Filed: 12/17/20 19:29> Back/Spine/Pelvis: Thoracic/Lumbar Spine: thoracic and lumbar spine normal to inspection <Loretta Mills NP - Last Filed: 12/17/20 19:29> Skin: General skin exam: no rashes or lesions noted <Loretta Mills NP - Last Filed: 12/17/20 19:29> Neuro: General: patient oriented x3, no focal motor deficits and normal sensation to monofilament <Loretta Mills NP - Last Filed: 12/17/20 19:29> Cranial nerves: Yes Equal, round and reactive pupils present <Loretta Mills NP - Last Filed: 12/17/20 19:29> Cognition (Neuro): normal cognition <Loretta Mills NP - Last Filed: 12/17/20 19:29> Speech: No Abnormal speech present <Loretta Mills NP - Last Filed: 12/17/20 19:29> Gait exam (Neuro): Normal gait present <Loretta Mills NP - Last Filed: 12/17/20 19:29> Motor exam (neuro): 5/5 motor strength present throughout <Loretta Mills NP - Last Filed: 12/17/20 19:29> Extrem: General: Yes normal to inspection <Loretta Mills NP - Last Filed: 12/17/20 19:29> Course Course Course Narrative: 45-year-old female here with increasing anxiety and depression with multiple life stressors room with running out of her Ativan for more than 1 month. No SI or HI. No physical complaints. She is currently on a waiting list for a psychiatrist. She does have a therapist whom she sees regularly. Home will give a dose of Ativan and involve care team to meet with patient. 1420-patient was seen by care team and plan for Section 12 bed search due to concerns over paranoia and delusions from family. Therefore labs, ur preg, CARUSO, COVID screen were ordered. Charge nurse aware of patient. Placed in physician observation pending disposition. Renal function at baseline d/t underlying CKD. Requesting psych consult which was placed. 2100-Sign out to night team pending above. <Loretta Mills NP - Last Filed: 12/17/20 19:29> MDM - Anxiety Medical Records Attestation: I reviewed the patient's medical records. <Loretta Mills NP - Last Filed: 12/17/20 19:29> Lab Data Attestation: I reviewed the patient's lab results. <Loretta Mills NP - Last Filed: 12/17/20 19:29> Result diagrams: : 12/17/20 15:07 12/17/20 15:07 <Loretta Mills NP - Last Filed: 12/17/20 19:29> Labs: Lab Results 12/17/20 12/17/20 12/17/20 Range/Units 15:01 15:02 15:07 WBC 10.9 H (4.8-10.8) X10*3/uL RBC 5.18 D (4.20-5.50) X10*6/uL Hgb 13.4 D (12.0-16.0) g/dl Hct 43.5 D (37-47) % MCV 84.0 (80-98) fL MCH 25.9 L (27.0-33.0) pg MCHC 30.8 L (31.0-35.0) g/dl RDW 21.4 H (11.0-16.0) % Plt Count 445 H (160-400) X10*3/uL MPV 10.3 (9.4-12.3) fL Immature Gran % (Auto) 0.5 H (0.0-0.4) % Neut % (Auto) 74.0 H (45-73) % Lymph % (Auto) 15.5 L (20-40) % [place] % (Auto) 8.8 (2-11) % Eos % (Auto) 0.6 (0-4) % Baso % (Auto) 0.6 (0-2) % Lymph # (Auto) 1.7 (1.2-4.9) X10*3/uL [place] # (Auto) 1.0 (0.1-1.2) X10*3/uL Eos # (Auto) 0.1 (0.0-0.4) X10*3/uL Baso # (Auto) 0.1 (0.0-0.2) X10*3/uL Abs Immat Gran (auto) 0.05 H (0.00-0.03) X10*3/uL Absolute Neuts (auto) 8.0 (2.0-8.3) X10*3/uL Absolute Nucleated RBC 0.000 (0.0-0.012) X10*3/uL Nucleated RBC % (auto) 0.0 (0.0-0.2) /100WBC Sodium (135-145) mmol/L Potassium (3.3-5.1) mmol/L Chloride (96-108) mmol/L Carbon Dioxide (22-29) mmol/L Anion Gap (12-20) BUN (9-16) mg/dL Creatinine (0.5-1.4) mg/dL Estim Creat Clear Calc Estimated GFR Random Glucose (60-115) mg/dL Calcium (8.4-10.2) mg/dL Total Bilirubin (0.0-1.0) mg/dL Direct Bilirubin (0.0-0.5) mg/dL AST (5-31) U/L ALT (0-31) U/L Alkaline Phosphatase (39-117) U/L Total Protein (6.5-8.0) g/dL Albumin (3.5-5.0) g/dL Urine Test NEGATIVE (NEGATIVE) Urine Opiates Screen Not Detected (Not Detect) Ur Barbiturates Screen Not Detected (Not Detect) Ur Phencyclidine Scrn Not Detected (Not Detect) Ur Amphetamines Screen Not Detected (Not Detect) U Benzodiazepines Scrn Not Detected (Not Detect) Urine Cocaine Screen Not Detected (Not Detect) U Marijuana (THC) Screen POSITIVE H (Not Detect) Ethyl Alcohol mg/dL COVID-19 (RADHA) (Negative) COVID-19 Clin Com 12/17/20 12/17/20 12/17/20 Range/Units 15:07 15:07 15:07 WBC (4.8-10.8) X10*3/uL RBC (4.20-5.50) X10*6/uL Hgb (12.0-16.0) g/dl Hct (37-47) % MCV (80-98) fL MCH (27.0-33.0) pg MCHC (31.0-35.0) g/dl RDW (11.0-16.0) % Plt Count (160-400) X10*3/uL MPV (9.4-12.3) fL Immature Gran % (Auto) (0.0-0.4) % Neut % (Auto) (45-73) % Lymph % (Auto) (20-40) % [place] % (Auto) (2-11) % Eos % (Auto) (0-4) % Baso % (Auto) (0-2) % Lymph # (Auto) (1.2-4.9) X10*3/uL [place] # (Auto) (0.1-1.2) X10*3/uL Eos # (Auto) (0.0-0.4) X10*3/uL Baso # (Auto) (0.0-0.2) X10*3/uL Abs Immat Gran (auto) (0.00-0.03) X10*3/uL Absolute Neuts (auto) (2.0-8.3) X10*3/uL Absolute Nucleated RBC (0.0-0.012) X10*3/uL Nucleated RBC % (auto) (0.0-0.2) /100WBC Sodium 140 (135-145) mmol/L Potassium 3.6 (3.3-5.1) mmol/L Chloride 101 (96-108) mmol/L Carbon Dioxide 27 (22-29) mmol/L Anion Gap 16 (12-20) BUN 22 H (9-16) mg/dL Creatinine 1.76 H (0.5-1.4) mg/dL Estim Creat Clear Calc 34.3 Estimated GFR 32 Random Glucose 134 H D (60-115) mg/dL Calcium 10.3 H D (8.4-10.2) mg/dL Total Bilirubin 0.2 (0.0-1.0) mg/dL Direct Bilirubin < 0.2 (0.0-0.5) mg/dL AST 16 (5-31) U/L ALT 11 (0-31) U/L Alkaline Phosphatase 76 D (39-117) U/L Total Protein 8.0 (6.5-8.0) g/dL Albumin 4.5 (3.5-5.0) g/dL Urine Test (NEGATIVE) Urine Opiates Screen (Not Detect) Ur Barbiturates Screen (Not Detect) Ur Phencyclidine Scrn (Not Detect) Ur Amphetamines Screen (Not Detect) U Benzodiazepines Scrn (Not Detect) Urine Cocaine Screen (Not Detect) U Marijuana (THC) Screen (Not Detect) Ethyl Alcohol < 10 mg/dL COVID-19 (RADHA) Negative (Negative) COVID-19 Clin Com See Note <Loretta Mills, MASTER AUTOMOTIVE TECHNICIAN - Last Filed: 12/17/20 19:29> Lab Results 12/17/20 12/17/20 12/17/20 Range/Units 15:01 15:02 15:07 WBC 10.9 H (4.8-10.8) X10*3/uL RBC 5.18 D (4.20-5.50) X10*6/uL Hgb 13.4 D (12.0-16.0) g/dl Hct 43.5 D (37-47) % MCV 84.0 (80-98) fL MCH 25.9 L (27.0-33.0) pg MCHC 30.8 L (31.0-35.0) g/dl RDW 21.4 H (11.0-16.0) % Plt Count 445 H (160-400) X10*3/uL MPV 10.3 (9.4-12.3) fL Immature Gran % (Auto) 0.5 H (0.0-0.4) % Neut % (Auto) 74.0 H (45-73) % Lymph % (Auto) 15.5 L (20-40) % [place] % (Auto) 8.8 (2-11) % Eos % (Auto) 0.6 (0-4) % Baso % (Auto) 0.6 (0-2) % Lymph # (Auto) 1.7 (1.2-4.9) X10*3/uL [place] # (Auto) 1.0 (0.1-1.2) X10*3/uL Eos # (Auto) 0.1 (0.0-0.4) X10*3/uL Baso # (Auto) 0.1 (0.0-0.2) X10*3/uL Abs Immat Gran (auto) 0.05 H (0.00-0.03) X10*3/uL Absolute Neuts (auto) 8.0 (2.0-8.3) X10*3/uL Absolute Nucleated RBC 0.000 (0.0-0.012) X10*3/uL Nucleated RBC % (auto) 0.0 (0.0-0.2) /100WBC Sodium (135-145) mmol/L Potassium (3.3-5.1) mmol/L Chloride (96-108) mmol/L Carbon Dioxide (22-29) mmol/L Anion Gap (12-20) BUN (9-16) mg/dL Creatinine (0.5-1.4) mg/dL Estim Creat Clear Calc Estimated GFR Random Glucose (60-115) mg/dL Calcium (8.4-10.2) mg/dL Total Bilirubin (0.0-1.0) mg/dL Direct Bilirubin (0.0-0.5) mg/dL AST (5-31) U/L ALT (0-31) U/L Alkaline Phosphatase (39-117) U/L Total Protein (6.5-8.0) g/dL Albumin (3.5-5.0) g/dL Urine Test NEGATIVE (NEGATIVE) Urine Opiates Screen Not Detected (Not Detect) Ur Barbiturates Screen Not Detected (Not Detect) Ur Phencyclidine Scrn Not Detected (Not Detect) Ur Amphetamines Screen Not Detected (Not Detect) U Benzodiazepines Scrn Not Detected (Not Detect) Urine Cocaine Screen Not Detected (Not Detect) U Marijuana (THC) Screen POSITIVE H (Not Detect) Ethyl Alcohol mg/dL COVID-19 (RADHA) (Negative) COVID-19 Clin Com 12/17/20 12/17/20 12/17/20 Range/Units 15:07 15:07 15:07 WBC (4.8-10.8) X10*3/uL RBC (4.20-5.50) X10*6/uL Hgb (12.0-16.0) g/dl Hct (37-47) % MCV (80-98) fL MCH (27.0-33.0) pg MCHC (31.0-35.0) g/dl RDW (11.0-16.0) % Plt Count (160-400) X10*3/uL MPV (9.4-12.3) fL Immature Gran % (Auto) (0.0-0.4) % Neut % (Auto) (45-73) % Lymph % (Auto) (20-40) % [place] % (Auto) (2-11) % Eos % (Auto) (0-4) % Baso % (Auto) (0-2) % Lymph # (Auto) (1.2-4.9) X10*3/uL [place] # (Auto) (0.1-1.2) X10*3/uL Eos # (Auto) (0.0-0.4) X10*3/uL Baso # (Auto) (0.0-0.2) X10*3/uL Abs Immat Gran (auto) (0.00-0.03) X10*3/uL Absolute Neuts (auto) (2.0-8.3) X10*3/uL Absolute Nucleated RBC (0.0-0.012) X10*3/uL Nucleated RBC % (auto) (0.0-0.2) /100WBC Sodium 140 (135-145) mmol/L Potassium 3.6 (3.3-5.1) mmol/L Chloride 101 (96-108) mmol/L Carbon Dioxide 27 (22-29) mmol/L Anion Gap 16 (12-20) BUN 22 H (9-16) mg/dL Creatinine 1.76 H (0.5-1.4) mg/dL Estim Creat Clear Calc 34.3 Estimated GFR 32 Random Glucose 134 H D (60-115) mg/dL Calcium 10.3 H D (8.4-10.2) mg/dL Total Bilirubin 0.2 (0.0-1.0) mg/dL Direct Bilirubin < 0.2 (0.0-0.5) mg/dL AST 16 (5-31) U/L ALT 11 (0-31) U/L Alkaline Phosphatase 76 D (39-117) U/L Total Protein 8.0 (6.5-8.0) g/dL Albumin 4.5 (3.5-5.0) g/dL Urine Test (NEGATIVE) Urine Opiates Screen (Not Detect) Ur Barbiturates Screen (Not Detect) Ur Phencyclidine Scrn (Not Detect) Ur Amphetamines Screen (Not Detect) U Benzodiazepines Scrn (Not Detect) Urine Cocaine Screen (Not Detect) U Marijuana (THC) Screen (Not Detect) Ethyl Alcohol < 10 mg/dL COVID-19 (RADHA) Negative (Negative) COVID-19 Clin Com See Note <Latanya Zimmerman DO - Last Filed: 12/18/20 09:05> Discharge Plan Discharge Clinical Impression: Acute anxiety <Loretta Mills NP - Last Filed: 12/17/20 19:29> Prescriptions: No Action multivitamin Tablet 1 tab PO DAILY RF: 0 lorazepam 0.5 mg tablet 2 tab PO Q6H PRN (Reason: Angioedema) RF: 0 hydrochlorothiazide 12.5 mg tablet 1 tab PO DAILY RF: 0 <Loretta Mills NP - Last Filed: 12/17/20 19:29>
[2020-12-17 14:05] VITALS: BP 119/68; PULSE 74; RESP 16; O2SAT 98
[2020-12-17 15:12] LABS: MANUAL DIFF FLAG NO
[2020-12-17 15:16] LABS: Basophils Absolute Auto 0.1 X10*3/uL (0.0-0.2); Basophils Percent Auto 0.6 % (0-2); Eosinophils Absolute Auto 0.1 X10*3/uL (0.0-0.4); Eosinophils Percent Auto 0.6 % (0-4); Hematocrit 43.5 % (37-47); Hemoglobin 13.4 g/dl (12.0-16.0); Imm Gran Abs Auto 0.05 X10*3/uL (0.00-0.03); Imm Gran Pct Auto 0.5 % (0.0-0.4); Lymphocytes Absolute Auto 1.7 X10*3/uL (1.2-4.9); Lymphocytes Percent Auto 15.5 % (20-40); Mean Corpuscular HGB Conc 30.8 g/dl (31.0-35.0); Mean Corpuscular Hemoglobin 25.9 pg (27.0-33.0); Mean Platelet Volume 10.3 fL (9.4-12.3); Monocytes Percent Auto 8.8 % (2-11); Platelet Count 445 X10*3/uL (160-400); Red Blood Count 5.18 X10*6/uL (4.20-5.50); Red Cell Distribution Width 21.4 % (11.0-16.0); White Blood Count 10.9 X10*3/uL (4.8-10.8)
[2020-12-17 15:16] LABS: UPreg QC Valid YES; Urine Pregnancy NEGATIVE (NEGATIVE)
[2020-12-17 15:28] LABS: COVID-19 Test Negative (Negative); IDNOW Serial# 9DD0AD1C
[2020-12-17 15:43] LABS: Ethanol < 10 mg/dL
[2020-12-17 15:45] LABS: Amphetamine Screen Urine Not Detected (Not Detect); Barbiturates, Urine Not Detected (Not Detect); Benzodiazepines Screen Urine Not Detected (Not Detect); Cannabinoid Screen Urine POSITIVE (Not Detect); Cocaine Screen Urine Not Detected (Not Detect); Opiate Screen Urine Not Detected (Not Detect); Phencyclidine Screen Urine Not Detected (Not Detect)
[2020-12-17 15:46] LABS: Alanine Aminotransferase 11 U/L (0-31); Albumin Level 4.5 g/dL (3.5-5.0); Alkaline Phosphatase 76 U/L (39-117); Anion Gap 16 (12-20); Aspartate Amino Transferase 16 U/L (5-31); Bilirubin Direct < 0.2 mg/dL (0.0-0.5); Bilirubin Total 0.2 mg/dL (0.0-1.0); Blood Urea Nitrogen 22 mg/dL (9-16); Calcium 10.3 mg/dL (8.4-10.2); Carbon Dioxide 27 mmol/L (22-29); Chloride 101 mmol/L (96-108); Creatinine Clr Calc Pharmacy 34.3; Estimated Glomerular Filt Rate 32; Glucose Random 134 mg/dL (60-115); Potassium 3.6 mmol/L (3.3-5.1); Sodium 140 mmol/L (135-145)
--- NOTE | 2020-12-17 16:17 | PHA.MEDREC ---
Pharmacy Consult ? Medication Reconciliation Pharmacy has completed the medication reconciliation.
[2020-12-17] MEDS: LORazepam 1 MG TABLET 2 MG PO (20:23)
--- NOTE | 2020-12-18 03:00 | PC.NURSE ---
Patient resting comfortably in bed no c/o pain or discomfort at this time aware of plan of care to be re-evaluated in am.
[2020-12-18 06:07] VITALS: BP 99/61; PULSE 75; RESP 16; TEMP 35.8; O2SAT 98
[2020-12-18 08:10] VITALS: BP 109/84; PULSE 88; RESP 16; TEMP 36.8; O2SAT 99
[2020-12-18] MEDS: Multivitamin TABLET 1 TAB PO (09:14)
[2020-12-18] MEDS: hydroCHLOROthiazide 12.5 MG TABLET PO (09:14)
--- NOTE | 2020-12-18 10:59 | PC.NURSE ---
PSYCH AT BEDSIDE
--- NOTE | 2020-12-18 11:23 | PC.NURSE ---
plan to dc home to family per psych
--- NOTE | 2020-12-18 11:33 | PC.NURSE ---
spoke with care team- plan for pt to stay after speaking with family
[2020-12-18] MEDS: LORazepam 0.5 MG TABLET 1 MG PO ×2 (12:04→21:02)
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
[2020-12-18 19:03] VITALS: BP 123/91; PULSE 78; TEMP 36.3; O2SAT 100
--- NOTE | 2020-12-19 05:41 | PC.NURSE ---
Throughout this shift, patient has remained in behavioral control and is calm/cooperative with all staff. Pt is section 12, negative ETOH level, positive for marijuana on toxicology screening, but otherwise unremarkable labs. Pt is an inpatient bedsearch, and was seen by Care Team. Attempting to take me some time. Patient's daughter (Jose Raul @ [phone]) was at bedside at the beginning of this RN's shift. COVID swab result negative. Will continue to monitor.
[2020-12-19 06:00] VITALS: BP 93/60; PULSE 68; RESP 16; TEMP 36.7; O2SAT 97
--- NOTE | 2020-12-19 07:37 | PC.NURSE ---
report taken from josé miguel landry pt here for reported paranoia from family members, pt is sec 12 bed search. per previous shift rn, pt has had no reported paranoid behaviors or delusions to report over night. pt appears to be resting in pt bed awake, breakfast tray offered and left at bedside. wctm.
[2020-12-19] MEDS: Multivitamin TABLET 1 TAB PO (09:26)
[2020-12-19] MEDS: hydroCHLOROthiazide 12.5 MG TABLET PO (09:26)
[2020-12-19 09:37] VITALS: BP 108/70; PULSE 78; RESP 16; TEMP 36.6; O2SAT 100
[2020-12-19] MEDS: LORazepam 0.5 MG TABLET 1 MG PO ×2 (10:50→17:36)
--- NOTE | 2020-12-19 15:56 | PC.NURSE ---
pt would like for morning shift nurse on sunday to call [facility] to confirm if pt has scheduled routine cleaning scheduled for sunday12/20/20.
[2020-12-19 17:35] VITALS: BP 130/98; PULSE 98; RESP 18; O2SAT 99
[2020-12-19] MEDS: Docusate Sodium 100 MG CAPSULE 200 MG PO (20:27)
--- NOTE | 2020-12-20 | ECG_ITS ---
Test Reason : MEDICAL CLEARNCE Blood Pressure : / mmHG Vent. Rate : 070 BPM Atrial Rate : 070 BPM P-R Int : 130 ms QRS Dur : 090 ms QT Int : 402 ms P-R-T Axes : 033 006 014 degrees QTc Int : 434 ms Normal sinus rhythm Minimal voltage criteria for LVH, may be normal variant Borderline ECG When compared with ECG of 29-MAR-2019 10:18, No significant change was found Referred By: Elsi Gilbert Electronically Signed By:Velasquez Norwood
[2020-12-20 01:22] VITALS: BP 114/75; PULSE 87; RESP 16; TEMP 36.6; O2SAT 98
--- NOTE | 2020-12-20 05:48 | PC.NURSE ---
Patient slept through the night, OOB x 2 for bathroom use and back, no distress observed/reported, per care team patient is on section 12 inpatient bed search, patient is not on any psychotropic medication, no behavioral concerns at this time, will continue to monitor.
--- NOTE | 2020-12-20 07:08 | PC.NURSE ---
upon taking report today patient appeared at rest in no distress, patient awake now up to use restroom.
[2020-12-20] MEDS: LORazepam 0.5 MG TABLET 1 MG PO ×3 (07:27→22:43)
[2020-12-20] MEDS: hydroCHLOROthiazide 12.5 MG TABLET PO ×2 (08:03→08:31)
[2020-12-20] MEDS: Multivitamin TABLET 1 TAB PO ×2 (08:03→08:31)
[2020-12-20 18:30] VITALS: BP 130/84; PULSE 81; TEMP 36.1
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
--- NOTE | 2020-12-20 19:03 | PC.NURSE ---
Pt signed a 3-day notice on 12/20/20, up on 12/23/20.
[2020-12-21 06:00] VITALS: BP 89/58; PULSE 70; RESP 16; TEMP 36.6; O2SAT 97
[2020-12-21] MEDS: Multivitamin TABLET 1 TAB PO (08:17)
[2020-12-21] MEDS: hydroCHLOROthiazide 12.5 MG TABLET PO (08:17)
[2020-12-21 08:40] LABS: Estimated Average Glucose 108 mg/dL; Hemoglobin A1c % 5.4 %
[2020-12-21 08:47] LABS: Cholesterol 192 mg/dL; HDL Cholesterol 47 mg/dL; LDL Cholesterol Calculated 107 mg/dl; Magnesium 2.1 mg/dL (1.6-2.6); Triglycerides 190 mg/dL
[2020-12-21 09:07] LABS: Free T4 (Free Thyroxine) 0.96 ng/dL (0.71-1.85); Thyroid Stimulating Hormone 2.14 uIU/mL (0.32-4.0)
[2020-12-21 09:09] LABS: Folate 12.8 ng/mL (> or = 4.0); Vitamin B12 398 pg/mL (200-900)
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
[2020-12-21] MEDS: LORazepam 0.5 MG TABLET 1 MG PO ×2 (11:57→21:15)
[2020-12-21 18:00] VITALS: BP 100/58; PULSE 80; TEMP 36.2
[2020-12-21] MEDS: Magnesium Hydrox/Alum Hydrox 30 ML ORAL.SUSP PO (22:42)
[2020-12-22] MEDS: Multivitamin TABLET 1 TAB PO (09:33)
[2020-12-22] MEDS: hydroCHLOROthiazide 12.5 MG TABLET PO (09:33)
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
[2020-12-22] MEDS: LORazepam 0.5 MG TABLET 1 MG PO ×2 (14:19→20:58)
[2020-12-22 14:23] VITALS: BP 142/106; PULSE 78; RESP 14; O2SAT 100
[2020-12-22 18:00] VITALS: BP 146/93; PULSE 82; RESP 18; TEMP 36.1; O2SAT 100
[2020-12-23 06:43] VITALS: BP 106/61; PULSE 68; TEMP 35.8; O2SAT 98
[2020-12-23] MEDS: Multivitamin TABLET 1 TAB PO (08:19)
[2020-12-23] MEDS: hydroCHLOROthiazide 12.5 MG TABLET PO (08:19)
--- NOTE | 2020-12-23 09:49 | PM.PSYDC ---
DS: Providers Provider Date of Service: 12/23/20 <Liliane Quinteros - Last Filed: 12/23/20 09:59> Date of admission: 12/20/20 14:52 <Liliane Quinteros - Last Filed: 12/23/20 09:59> Primary care physician: Tee Leone MD <Liliane Quinteros - Last Filed: 12/23/20 09:59> DS: Diagnosis Discharge Diagnosis (1) Bipolar 1 disorder, manic, moderate: Status: Acute <Liliane - Last Filed: 12/23/20 09:59> DS: Medications Discharge Medications Home Medications: Home Medications Medication Instructions Recorded Confirmed hydrochlorothiazide 1 tab PO DAILY 12/17/20 12/17/20 multivitamin 1 tab PO DAILY 12/17/20 12/17/20 <Liliane Quinteros - Last Filed: 12/23/20 09:59> Discharge Plan Discharge Patient Disposition: Home, Self-Care <Liliane Last Filed: 12/23/20 09:59> Discharge Diagnosis: Bipolar Disorder type 1 manic episode <Liliane Quinteros - Last Filed: 12/23/20 09:59> Bipolar Disorder type 1 manic episode <Chad Reno MD - Last Filed: 12/31/20 12:01> Referrals: Loli (therapist) [Other] - 12/28/20 2:00 pm (Telehealth appointment) Dr. Norman (psychiatrist) [Other] - 01/17/21 1:00 pm (Telehealth appointment) Tee Leone MD [Primary Care Provider] - (Please follow up.) <Liliane Quinteros - Last Filed: 12/23/20 09:59> Discharge Medications: New lorazepam [Ativan] 1 mg tablet 1 mg PO BID Qty: 60 RF: 0 Continued multivitamin Tablet 1 tab PO DAILY RF: 0 hydrochlorothiazide 12.5 mg tablet 1 tab PO DAILY RF: 0 Discontinued lorazepam 0.5 mg tablet 2 tab PO Q6H PRN (Reason: Angioedema) RF: 0 hydrochlorothiazide 12.5 mg tablet 12.5 mg PO DAILY RF: 0 <Liliane Bucknerkj - Last Filed: 12/23/20 09:59> Discharge Orders: Discharge Order (Routine); Ordered 12/23/20 Ordered By: Liliane Barbour <Liliane Barbour - Last Filed: 12/23/20 09:59> Diet: regular diet <Liliane Barbour - Last Filed: 12/23/20 09:59> regular diet <Chad Reno MD - Last Filed: 12/31/20 12:01> Activity on Discharge: As tolerated <Liliane Barbour - Last Filed: 12/23/20 09:59> As tolerated <Chad Reno MD - Last Filed: 12/31/20 12:01> Stand Alone Forms: Patient Portal Discharge page, Community Support <Liliane Barbour - Last Filed: 12/23/20 09:59> Care Plan Goals: 1. maintain mood 2. No SI/HI. <Liliane Barbour - Last Filed: 12/23/20 09:59> Health Concerns: 1. follow up with PCP <Liliane Barbour - Last Filed: 12/23/20 09:59> Plan of Treatment: 1. Take medications as prescribed. 2. Go to nearest ED or call 911 in event of emergency. <Liliane Barbour - Last Filed: 12/23/20 09:59> Assessment: Pt with residual persecutory delusions, some grandiose delusions present but calm, no aggression. No SI/HI. <Liliane Barbour - Last Filed: 12/23/20 09:59> Discharge Date/Time: 12/23/20 11:40 <Liliane Barbour - Last Filed: 12/23/20 09:59> Data Data Completed and Pending Completed studies during hospitalization [Text1]: 12/17/20 12/17/20 12/17/20 15:01 15:02 15:07 WBC 10.9 H RBC 5.18 D Hgb 13.4 D Hct 43.5 D MCV 84.0 MCH 25.9 L MCHC 30.8 L RDW 21.4 H Plt Count 445 H MPV 10.3 Immature Gran % (Auto) 0.5 H Neut % (Auto) 74.0 H Lymph % (Auto) 15.5 L [place] % (Auto) 8.8 Eos % (Auto) 0.6 Baso % (Auto) 0.6 Lymph # (Auto) 1.7 [place] # (Auto) 1.0 Eos # (Auto) 0.1 Baso # (Auto) 0.1 Abs Immat Gran (auto) 0.05 H Absolute Neuts (auto) 8.0 Absolute Nucleated RBC 0.000 Nucleated RBC % (auto) 0.0 Sodium Potassium Chloride Carbon Dioxide Anion Gap BUN Creatinine Estim Creat Clear Calc Estimated GFR Random Glucose Estimat Average Glucose Hemoglobin A1c % Calcium Magnesium Total Bilirubin Direct Bilirubin AST ALT Alkaline Phosphatase Total Protein Albumin Triglycerides Cholesterol LDL Cholesterol, Calc HDL Cholesterol Vitamin B12 Folate TSH Free T4 Urine Test NEGATIVE Urine Opiates Screen Not Detected Ur Barbiturates Screen Not Detected Ur Phencyclidine Scrn Not Detected Ur Amphetamines Screen Not Detected U Benzodiazepines Scrn Not Detected Urine Cocaine Screen Not Detected U Marijuana (THC) Screen POSITIVE H Ethyl Alcohol COVID-19 (RADHA) COVID-[employer] 12/17/20 12/17/20 12/17/20 15:07 15:07 15:07 WBC RBC Hgb Hct MCV MCH MCHC RDW Plt Count MPV Immature Gran % (Auto) Neut % (Auto) Lymph % (Auto) [place] % (Auto) Eos % (Auto) Baso % (Auto) Lymph # (Auto) [place] # (Auto) Eos # (Auto) Baso # (Auto) Abs Immat Gran (auto) Absolute Neuts (auto) Absolute Nucleated RBC Nucleated RBC % (auto) Sodium 140 Potassium 3.6 Chloride 101 Carbon Dioxide 27 Anion Gap 16 BUN 22 H Creatinine 1.76 H Estim Creat Clear Calc 34.3 Estimated GFR 32 Random Glucose 134 H D Estimat Average Glucose Hemoglobin A1c % Calcium 10.3 H D Magnesium Total Bilirubin 0.2 Direct Bilirubin < 0.2 AST 16 ALT 11 Alkaline Phosphatase 76 D Total Protein 8.0 Albumin 4.5 Triglycerides Cholesterol LDL Cholesterol, Calc HDL Cholesterol Vitamin B12 Folate TSH Free T4 Urine Test Urine Opiates Screen Ur Barbiturates Screen Ur Phencyclidine Scrn Ur Amphetamines Screen U Benzodiazepines Scrn Urine Cocaine Screen U Marijuana (THC) Screen Ethyl Alcohol < 10 COVID-19 (RADHA) Negative COVID-[employer] See Note 12/21/20 12/21/20 12/21/20 07:51 07:51 07:51 WBC RBC Hgb Hct MCV MCH MCHC RDW Plt Count MPV Immature Gran % (Auto) Neut % (Auto) Lymph % (Auto) [place] % (Auto) Eos % (Auto) Baso % (Auto) Lymph # (Auto) [place] # (Auto) Eos # (Auto) Baso # (Auto) Abs Immat Gran (auto) Absolute Neuts (auto) Absolute Nucleated RBC Nucleated RBC % (auto) Sodium Potassium Chloride Carbon Dioxide Anion Gap BUN Creatinine Estim Creat Clear Calc Estimated GFR Random Glucose Estimat Average Glucose 108 Hemoglobin A1c % 5.4 Calcium Magnesium 2.1 Total Bilirubin Direct Bilirubin AST ALT Alkaline Phosphatase Total Protein Albumin Triglycerides 190 Cholesterol 192 LDL Cholesterol, Calc 107 HDL Cholesterol 47 Vitamin B12 398 Folate 12.8 TSH 2.14 Free T4 0.96 Urine Test Urine Opiates Screen Ur Barbiturates Screen Ur Phencyclidine Scrn Ur Amphetamines Screen U Benzodiazepines Scrn Urine Cocaine Screen U Marijuana (THC) Screen Ethyl Alcohol COVID-19 (RADHA) COVID-19 Clin Com <Lilinae Barbour - Last Filed: 12/23/20 09:59> DS: Summary Hospital Course Hospital Course: Ms. Case is a 45 year-old woman who was brought to [facility] ED via police after she presented to police station reporting being monitored and tracked by famous rapper. In the ED, her utox was positive for cannabis. She presented as hyperverbal, reported feeling anxious. She reports for the past 2 weeks she has been writing messages to different famous clark about how they can improve their videos to attract more fans. Pt states she thinks she has a special gift in that she is very creative and famous people can benefit from that. She also expressed paranoid delusions in that she thinks one particular famous luis armando is talking about her in his songs because he mentioned a blue tape which pt reports is the blue tape she used to cover the camera on her computer. She reports she has been sending her saving to one particular rapper to support him. She reports sleep and appetite are fine. She denies VH/AH. Per daughter, previous episodes like this one are not new. HOSPITAL COURSE On the unit, Ms. Case presented as calmer but continues to report persecutory delusions of famous rapper along with some grandiose delusions of being very creating and reaching out to famous clark who pt believed appreciate her input and incorporated in their videos. She thoughts one rapper was writing songs about her. Although this is her first inpatient psychiatric admission, per daughter, pt has had similar episodes in the past for a long time. she is currently not in psychiatric treatment. Pt has also increase use of cannabis, which most likely has precipitated episode of mame but I do suspect current symptoms (mixed of grandiose/persecutory delusions, decrease need for sleep,expansive mood) is mostly a manifestation of Bipolar Disorder rather than cannabis induced psychosis. We discussed risks, benefits and alternative treatment options. Pt was offered risperidone but she declined. She signed a 3 day notice. During this time, pt was visible in the unit, participated in groups. She continues to present with both grandiose and persecutory delusions but with much less intensity. There were no signs of imminent harm to self or others if pt not treated with medications, therefore, at time of 3 day notice patient was discharged. Collateral information from daughter- who reports that pt is much calmer, no safety concerns in terms of suicidal or homicidal ideation. Pt is not gravely disable due to residual delusional thinking to meet standard to petition court for involuntary psychiatric treatment. Pt was educated on her diagnosis, treatment, effects of cannabis. Pt agreed to continue OP psychiatric treatment and consider medications other than ativan. During this admission there were no incidents of disruptive behaviors nor use of restraints. <Liliane Barbour - Last Filed: 12/23/20 09:59> Status at Discharge Cognitive/behavioral status at discharge: Pt with residual persecutory/grandiose delusions but with much less intensity. Pt denies SI/HI. Pt will return home with partner. No signs of aggression towards self or others. <Liliane Barbour - Last Filed: 12/23/20 09:59> Functional status at discharge: independent ambulation <Liliane Barbour - Last Filed: 12/23/20 09:59> Overall status at discharge: patient is progressing back to baseline <Liliane Barbour - Last Filed: 12/23/20 09:59> Time Spent with Patient Time attestation: Total time spent providing and/or coordinating discharge services: <Liliane Barbour - Last Filed: 12/23/20 09:59> Time spent: Less than 30 minutes <Liliane Barbour - Last Filed: 12/23/20 09:59>
[2020-12-23] MEDS: LORazepam 1 MG TABLET PO (10:46)
== END 2020-12-23 11:40 | disposition home or self-care (01) | DRG 753 ==
LOC: HO.ED 19:28 → HO.PM5 12-20 15:01
PROVIDERS: Nurse Practitioner Family; Admitting Provider Clinical Nurse Specialist Psychiatric/Mental Health, Adult; Emergency Provider Emergency Medicine; PCP Internal Medicine; Visit Provider Social Worker
DX: F31.12 Bipolar disorder, current episode manic without psychotic features, moderate (principal); F12.159 Cannabis abuse with psychotic disorder, unspecified; F41.9 Anxiety disorder, unspecified; Z20.822 Contact with and (suspected) exposure to COVID-19; Z79.899 Other long term (current) drug therapy
CPT/HCPCS: 36415; 80048; 80061; 80076; 80307; 81025; 82077; 82607; 82746; 83036; 83735; 84439; 84443; 85025; 87635; 93005; 99285

== ENCOUNTER 2022-02-28 09:42 | Emergency (ER) | payer OTHER, SELFPAY ==
--- NOTE | ~2022-02-28 | XR_ITS ---
EXAMINATION: XR KNEE, RIGHT CLINICAL INFORMATION: Right knee pain COMPARISON: None TECHNIQUE: Four views of the right knee. FINDINGS: Osseous alignment is anatomic. Joint spaces are relatively well-maintained. No acute fracture is seen. A fabella is noted. Small to moderate joint effusion is present. XR/XR knee RT 3V IMPRESSION: Small to moderate effusion without acute osseous findings.
[2022-02-28 09:47] VITALS: BP 136/77; PULSE 74; RESP 16; TEMP 36; O2SAT 97; BMI 27.4
--- NOTE | 2022-02-28 11:42 | ED_ITS ---
HPI - Extremity Problem General Chief complaint: Extremity Problem Stated complaint: R Leg Knee Pain No Injury Time Seen by Provider: 02/28/22 11:42 Source: patient Mode of arrival: wheelchair Limitations: no limitations History of Present Illness HPI Narrative: 46-year-old female with a past medical history of anemia, chronic UTI, HTN, nephroureterolithiasis, renal stones, CKD here with complaints of right knee pain acute on chronic for several days. Patient reports intermittent right knee pain for quite some time and reports she works long shifts and spends most time on her feet. She gets clicking with movement and intermittent swelling. She denies any associated redness, warmth, fevers, chills, numbness, tingling, instability. Increasing pain last few days with swelling. Swelling does improve with ice. Related Data Home Medications Medication Instructions Recorded Confirmed hydrochlorothiazide 12.5 mg tablet 1 tab PO DAILY 12/17/20 12/17/20 multivitamin 1 tab PO DAILY 12/17/20 12/17/20 Previous Rx's Medication Instructions Recorded lorazepam 1 mg tablet (Ativan) 1 mg PO BID #60 tabs 12/23/20 acetaminophen 500 mg tablet 1,000 mg PO Q6H PRN pain #60 tabs 02/28/22 (Tylenol Extra Strength) prednisone 20 mg tablet 40 mg PO DAILY #10 tabs 02/28/22 Allergies Allergy/AdvReac Type Severity Reaction Status Date / Time No Known Allergies Allergy Unknown NONE Verified 11/02/20 14:56 Review of Systems Review of Systems: Yes all other systems are reviewed and are negative Constitutional: Constitutional: Reports no additional constitutional complaints, Denies body ache(s), Denies chills, Denies fever(s), Denies headache(s) and Denies weakness Eyes: Eyes: Reports no additional eye complaints and Denies change in vision ENT: Reports system reviewed and no additional complaints, except as documented, Denies dizziness, Denies headache(s), Denies nasal congestion, Denies nasal discharge and Denies neck pain Cardiovascular: Cardiovascular: Reports no additional cardiovascular compla ints, Denies chest pain, Denies leg edema and Denies dyspnea Respiratory: Respiratory: Reports no additional respiratory complaints, Denies cough and Denies dyspnea Gastrointestinal: Gastrointestinal: Reports no additional gastrointestinal complaints, Denies abdominal pain, Denies diarrhea, Denies nausea and Denies vomiting Genitourinary: Genitourinary: Reports no additional female genitourinary complaints and Denies urinary incontinence Musculoskeletal: Musculoskeletal: Reports no additional musculoskeletal complaints, Denies back pain, Reports arthralgias, Reports joint swelling, Reports limited range of motion, Denies neck pain, Denies numbness and Denies tingling Integumentary/Breasts: Skin/Breast: Reports system reviewed and no additional complaints, except as docu and Denies rash Neurologic: Reports system reviewed and no additional complaints, except as documented, Denies Abnormal speech present, Denies dizziness, Denies headache(s), Denies numbness, Denies tingling and Denies weakness PMFSH Past Medical History Attestation statement: The following information was validated with the patient. Source: old records reviewed and nursing notes reviewed Medical History Acute cystitis with hematuria Anemia Chronic UTI HTN (hypertension) Nephroureterolithiasis Renal stones Social History Social History Household Members: Family Housing: House Do you presently have visiting nurse or other home services: No Alcohol intake: current Alcohol intake frequency: a few times a week Alcohol type: beer and hard liquor Patient Tobacco Use Status: Never used Tobacco Substance Use Type: Marijuana Advance Directives: No Advance Directives Information Provided: No service: No Sexual orientation: did not discuss. Physical Exam Vital Signs: Vital Signs: Last Vital Signs Temp 96.8 F 02/28/22 09:47 Pulse 74 02/28/22 09:47 Resp 16 02/28/22 09:47 BP 136/77 02/28/22 09:47 Pulse Ox 97 02/28/22 09:47 O2 Del Method 02/28/22 09:47 BMI result Body Mass Index 27.4 Const: General: cooperative, healthy appearing, comfortable and no acute distress Orientation/consciousness: patient oriented x3 Limitations: no limitations HEENT: Head: Yes normal to inspection Ears: hearing grossly normal bilaterally General nose exam: Normal external nose present Face and sinus: Yes normal facial exam Mouth: Normal oral and palatal mucosa present Throat: Yes posterior oropharynx normal Eyes: General: appearance normal, both eyes and all related structures Pupils: Equal, round and reactive pupils present Neck: Neck: Yes normal visual inspection Chest: Chest palpation & inspection: normal inspection of the chest Resp: Effort & Inspection: normal respiratory effort Auscultation: clear to auscultation bilaterally Cardio: Rate: regular rate Rhythm: regular rhythm Peripheral pulses: Peripheral pulses 2+ throughout GI: Inspection: Yes normal to inspection Palpation (GI): Soft to palpation and nontender Auscultation: normal bowel sounds Back/Spine/Pelvis: Thoracic/Lumbar Spine: thoracic and lumbar spine normal to inspection Skin: General skin exam: no rashes or lesions noted Neuro: General: patient oriented x3, no focal motor deficits and normal sensation to monofilament Cranial nerves: Yes Equal, round and reactive pupils present Cognition (Neuro): normal cognition Speech: No Abnormal speech present Gait exam (Neuro): Normal gait present Motor exam (neuro): 5/5 motor strength present throughout Extrem: Other: To right knee there is swelling with effusion. no redness or warmth. Pain with flexion. Extension is normal. Unable to assess ligaments d/t pain on exam. NV intact distally. No posterior knee pain or calf pain General: Yes normal to inspection Course Course Course Narrative: X-rays show IMPRESSION: Small to moderate effusion without acute osseous findings. ? Low concern for septic joint with no redness, fever, warmth or difficulty with extension Patient has crutches at home. Will give mihir wrap. Recommended RICE. Considered NSAID but has CKD. Will give prednisone course and recommend APAP prn.. Should follow with ortho for chronic complaint Reviewed worrisome signs.symptoms with patient and when to seek additional care. Comfortable with plan for discharge home. MDM - Extremity (Nontraumatic) MDM Narrative Medical decision making narrative: 46 yo female here with acute on chronic right knee pain with swelling with no injury or trauma but history of long hours on her feet with working Will check x-rays Medical Records Attestation: I reviewed the patient's medical records. Lab Data Attestation: I reviewed the patient's lab results. Imaging Data knee x-ray: Attestation: I personally reviewed and interpreted this imaging study as follows: Radiologist's impression: Launch?Image [address] [address] XRay Report Signed Patient: Ginger Case MR#: [id number] : 1975 Acct:[id number] Age/Sex: 46 / F ADM Date: 02/28/22 Loc: HO.ED Attending Dr: Ordering Physician: Ayaz ED Physician Date of Service: 02/28/22 Procedure(s): XR knee RT 3V Accession Number(s): [id number] cc: Generic ED Physician~ EXAMINATION: XR KNEE, RIGHT? CLINICAL INFORMATION: Right knee pain? COMPARISON: None? TECHNIQUE: Four views of the right knee. FINDINGS: Osseous alignment is anatomic. Joint spaces are relatively well-maintained. No acute fracture is seen. A fabella is noted. Small to moderate joint effusion is present.? XR/XR knee RT 3V IMPRESSION: Small to moderate effusion without acute osseous findings. ? Discharge Plan Discharge Clinical Impression: Effusion of knee joint right Patient Disposition: Home, Self-Care Instructions: Swollen Knee Joint (ED) Additional Instructions: Ice, elevate the limb, use crutches and mihir wrap for the next few days Follow-up with orthopedics as discussed Prescriptions: New prednisone 20 mg tablet 40 mg PO DAILY Qty: 10 0RF acetaminophen [Tylenol Extra Strength] 500 mg tablet 1,000 mg PO Q6H PRN (Reason: pain) Qty: 60 0RF No Action multivitamin Tablet 1 tab PO DAILY hydrochlorothiazide 12.5 mg tablet 1 tab PO DAILY lorazepam [Ativan] 1 mg tablet 1 mg PO BID Qty: 60 0RF Referrals: [facility] [place] Orthopedic Surgeons [Provider Group] - 2 weeks Stand Alone Forms: Work/School Release Interventions: ED Discharge Assessment Last Done: 02/28/22 12:07 Discharge Date/Time: 02/28/22 12:08
== END 2022-02-28 12:08 | disposition home or self-care (01) ==
PROVIDERS: Emergency Provider Emergency Medicine; PCP Internal Medicine
DX: M25.461 Effusion, right knee (principal); I10 Essential (primary) hypertension; Z79.899 Other long term (current) drug therapy
CPT/HCPCS: 73562; 99283

== ENCOUNTER 2022-03-09 14:29 | Outpatient (REF) | payer OTHER, SELFPAY ==
--- NOTE | ~2022-03-09 | XR_ITS ---
EXAMINATION: XR KNEE AP STANDING CLINICAL INFORMATION: Pain COMPARISON: Previous x-ray February 28, 2022 TECHNIQUE: AP bilateral standing view of the knees and sunrise view of the right knee was obtained. FINDINGS: [place] view of the right knee demonstrates question slight lateral position of the patella. AP standing view of the knees demonstrates possible valgus angulation at the right knee joint. This was not appreciated on earlier 02/28/2022 exam. Standing AP view of the left knee is unremarkable. XR/XR knee standing BI IMPRESSION: Question slight valgus angulation of the right knee. This is not appreciated on recent x-ray 02/28/2022. Question slight lateral position of the right patella on the sunrise view.
--- NOTE | ~2022-03-09 | XR_ITS ---
EXAMINATION: XR KNEE AP STANDING CLINICAL INFORMATION: Pain COMPARISON: Previous x-ray February 28, 2022 TECHNIQUE: AP bilateral standing view of the knees and sunrise view of the right knee was obtained. FINDINGS: [place] view of the right knee demonstrates question slight lateral position of the patella. AP standing view of the knees demonstrates possible valgus angulation at the right knee joint. This was not appreciated on earlier 02/28/2022 exam. Standing AP view of the left knee is unremarkable. XR/XR knee RT 1V IMPRESSION: Question slight valgus angulation of the right knee. This is not appreciated on recent x-ray 02/28/2022. Question slight lateral position of the right patella on the sunrise view.
== END 2022-03-09 14:30 | disposition home or self-care (01) ==
LOC: HO.HOSX 14:29
PROVIDERS: Visit Provider Physician Assistant
DX: M23.91 Unspecified internal derangement of right knee (principal); M25.461 Effusion, right knee
CPT/HCPCS: 73560; 73565; 99202

== ENCOUNTER 2022-05-30 09:14 | Emergency (ER) | payer OTHER, SELFPAY ==
--- NOTE | ~2022-05-30 | XR_ITS ---
EXAMINATION: XR FOOT, LEFT CLINICAL INFORMATION: Pain forefoot. No known injury. COMPARISON: None TECHNIQUE: AP, lateral, and oblique views of the left foot. FINDINGS: Normal bony mineralization. No acute or healing fracture, dislocation, destructive process. There is no joint narrowing or erosive changes. 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 The retrocalcaneal recess is preserved. There is no calcaneal spurring. XR/XR foot LT 2V IMPRESSION: 1. No fracture, dislocation, or arthropathy. 2. 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
[2022-05-30 09:21] VITALS: BP 136/96; PULSE 65; RESP 18; TEMP 36.7; O2SAT 99; BMI 25.6
--- NOTE | 2022-05-30 12:29 | ED.EXTPRO ---
HPI - Extremity Problem General Chief complaint: Extremity Problem Stated complaint: L foot pain Time Seen by Provider: 05/30/22 12:13 History of Present Illness HPI Narrative: Patient complains of left foot pain without injury which she associates with being on her feet for long period of time, denies any fever redness or rash Related Data Home Medications Medication Instructions Recorded Confirmed hydrochlorothiazide 12.5 mg tablet 1 tab PO DAILY 12/17/20 12/17/20 multivitamin 1 tab PO DAILY 12/17/20 12/17/20 Previous Rx's Medication Instructions Recorded lorazepam 1 mg tablet (Ativan) 1 mg PO BID #60 tabs 12/23/20 acetaminophen 500 mg tablet 1,000 mg PO Q6H PRN pain #60 tabs 02/28/22 (Tylenol Extra Strength) prednisone 20 mg tablet 40 mg PO DAILY #10 tabs 02/28/22 oxycodone 5 mg tablet 5 mg PO Q6H PRN pain #14 tabs 05/30/22 Allergies Allergy/AdvReac Type Severity Reaction Status Date / Time No Known Allergies Allergy Unknown NONE Verified 03/09/22 14:44 Review of Systems Review of Systems: Positive for left foot pain Negatives are no fever no chills no headache no neck pain no back pain no radiating pain no numbness no weakness no tingling no skin rash no wound no laceration no other joint pains or swelling Yes all other systems are reviewed and are negative PMF Past Medical History Source: nursing notes reviewed Medical History Acute cystitis with hematuria Anemia Chronic UTI HTN (hypertension) Nephroureterolithiasis Renal stones Social History Social History (Updated 03/09/22 @ 14:45 by JOHN Mccracken) Household Members: Family Housing: House Do you presently have visiting nurse or other home services: No Alcohol intake: current Alcohol intake frequency: a few times a week Alcohol type: beer and hard liquor Patient Tobacco Use Status: Never used Tobacco Substance Use Type: Marijuana Advance Directives: No Advance Directives Information Provided: No service: No Current occupational status: employed 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 Physical Exam Vital Signs: Vital Signs: Last Vital Signs Temp 98.1 F 05/30/22 09:21 Pulse 65 05/30/22 09:21 Resp 18 12/20/22 09:21 BP 136/96 H 05/30/22 09:21 Pulse Ox 99 05/30/22 09:21 O2 Del Method 05/30/22 09:21 BMI result Body Mass Index 25.6 General appearance no acute distress Head is normocephalic atraumatic Neck is supple Respiratory no distress The back full range of motion Extremities full range of motion x4 including the left foot but there is pain with movement at the ankle of the left foot, there is tenderness over the dorsum of the foot which may have some mild swelling in the central lateral aspect of the dorsal foot there is no redness no break in the skin it is neurovascular intact distal, patient is very uncomfortable putting weight on it and is walking with a limp Other extremities normal Skin no rashes Neuro no focal motor sensory deficits Course Course Course Narrative: X-ray showed no acute fracture, there was a question of a calcaneonavicular coalition but nothing acute and that did not correlate with the point of maximal tenderness Patient is advised to follow with industrial workers orthopedist if pain continues and given a note for couple of days off work to rest Discharge Plan Discharge Clinical Impression: Tendinitis of left foot Patient Disposition: Home, Self-Care Additional Instructions: Your x-ray was normal It is likely that this will improve with rest and elevation for few days Follow with industrial workers or orthopedist Return any time for redness, worse pain and swelling, any worse condition or any concerns Prescriptions: New oxycodone 5 mg tablet 5 mg PO Q6H PRN (Reason: pain) Qty: 14 0RF Rx Instructions: Partial Fill upon patient request. No Action multivitamin Tablet 1 tab PO DAILY hydrochlorothiazide 12.5 mg tablet 1 tab PO DAILY lorazepam [Ativan] 1 mg tablet 1 mg PO BID Qty: 60 0RF prednisone 20 mg tablet 40 mg PO DAILY Qty: 10 0RF acetaminophen [Tylenol Extra Strength] 500 mg tablet 1,000 mg PO Q6H PRN (Reason: pain) Qty: 60 0RF Referrals: Jesse Marroquin MD [Physician] - (Left foot pain) Stand Alone Forms: Work/School Release Interventions: ED Discharge Assessment Last Done: 05/30/22 12:40 Discharge Date/Time: 05/30/22 12:41
== END 2022-05-30 12:41 | disposition home or self-care (01) ==
PROVIDERS: Emergency Provider Emergency Medicine Emergency Medical Services; PCP Internal Medicine
DX: M79.672 Pain in left foot (principal); M77.8 Other enthesopathies, not elsewhere classified
CPT/HCPCS: 73620; 99282; 99283

== ENCOUNTER 2022-07-11 09:14 | Outpatient (REF) | payer OTHER, SELFPAY ==
[2022-07-11 09:34] LABS: MANUAL DIFF FLAG NO
[2022-07-11 10:10] LABS: Appearance Urine Clear; Color Urine Yellow; Glucose Urine UA Negative (Negative); Leukocyte Esterase Urine Large (3+) (Negative); Nitrite Urine Positive (Negative); UMIC TRIGGER UA YES; Urine Blood Negative (Negative); Urine Ketones Negative (Negative); Urine Protein Negative (Neg-Trace)
[2022-07-11 10:11] LABS: Basophils Absolute Auto 0.1 X10*3/uL (0.0-0.2); Basophils Percent Auto 0.5 % (0-2); Eosinophils Absolute Auto 0.2 X10*3/uL (0.0-0.4); Eosinophils Percent Auto 2.1 % (0-4); Hematocrit 38.7 % (37.0-47.0); Hemoglobin 11.9 g/dl (12.0-16.0); Imm Gran Abs Auto 0.06 X10*3/uL (0.00-0.03); Imm Gran Pct Auto 0.6 % (0.0-0.4); Lymphocytes Percent Auto 20.3 % (20-40); Mean Corpuscular HGB Conc 30.7 g/dl (31.0-35.0); Mean Corpuscular Hemoglobin 27.1 pg (27.0-33.0); Mean Corpuscular Volume 88.2 fL (80.0-98.0); Neutrophils Absolute Auto 6.5 x10*3/uL (2.0-8.3); Neutrophils Percent Auto 66.5 % (45-73); Platelet Count 333 X10*3/uL (160-400); Red Blood Count 4.39 X10*6/uL (4.20-5.50); Red Cell Distribution Width 16.1 % (11.0-16.0); White Blood Count 9.7 X10*3/uL (4.8-10.8)
[2022-07-11 10:16] LABS: Bacteria Urine 1+ (None Seen); Hyaline Casts Urine 0-2 /LPF (0-2); RBC Urine 0-2 /HPF (0-2); WBC Urine 21-50 /HPF (0-5)
[2022-07-11 10:57] LABS: Creatinine Urine 53.49 mg/dL; Protein/Creatinine Ratio, Ur 0.24 (<0.2); Total Protein Urine Random 13 mg/dL (<12)
[2022-07-11 10:59] LABS: Anion Gap 12 (12-20); Blood Urea Nitrogen 25 mg/dL (9-16); Carbon Dioxide 24 mmol/L (22-29); Chloride 108 mmol/L (96-108); Estimated Glomerular Filt Rate 37; Potassium 4.4 mmol/L (3.3-5.1); Sodium 140 mmol/L (135-145); Uric Acid 10.5 mg/dL (2.4-5.7)
[2022-07-11 11:18] LABS: Vitamin D 25-OH Total 21.5 ng/mL (>30)
[2022-07-12 17:44] LABS: Calcium (PTHI) 8.9 mg/dL (8.6-10.2); PTHI 104 pg/mL (16-77)
== END 2022-07-11 09:15 | disposition home or self-care (01) ==
LOC: HO.LAB 09:14
PROVIDERS: PCP Internal Medicine; Visit Provider Physician Assistant
DX: N18.31 Chronic kidney disease, stage 3a (principal); E55.9 Vitamin D deficiency, unspecified
CPT/HCPCS: 36415; 80051; 81001; 81003; 82306; 82310; 82565; 83970; 84156; 84520; 84550; 85025

== ENCOUNTER 2022-08-13 20:43 | Emergency (ER) | payer OTHER, SELFPAY ==
[2022-08-13 20:48] VITALS: BP 139/89; PULSE 91; O2SAT 100
[2022-08-13 20:49] VITALS: BP 140/80; PULSE 74; RESP 18; TEMP 36.6; O2SAT 94; BMI 25.6
[2022-08-13 21:18] LABS: COVID-19 Test Negative (Negative); IDNOW Serial# 6674DD1D
--- NOTE | 2022-08-13 22:01 | ED_ITS ---
HPI - Nausea/Vomiting/Diarrhea General Chief complaint: Nausea/Vomiting/Diarrhea Stated complaint: covid symptoms Time Seen by Provider: 08/13/22 21:34 Source: patient Mode of arrival: ambulatory Limitations: no limitations History of Present Illness HPI Narrative: 47-year-old female presents for dizziness, nausea, and vomiting. Patient was positive for COVID-19 3 weeks ago. MD elicited complaint: nausea and vomiting Onset (ago): day(s) (1) Description of vomiting: watery Associated nausea: Yes Associated abdominal pain: No Severity: mild Exacerbating factors: eating Relieving factors: none Associated symptoms: nausea/vomiting and other (Dizziness) Related Data Home Medications Medication Instructions Recorded Confirmed hydrochlorothiazide 12.5 mg tablet 1 tab PO DAILY 12/17/20 12/17/20 multivitamin 1 tab PO DAILY 12/17/20 12/17/20 Previous Rx's Medication Instructions Recorded lorazepam 1 mg tablet (Ativan) 1 mg PO BID #60 tabs 12/23/20 acetaminophen 500 mg tablet 1,000 mg PO Q6H PRN pain #60 tabs 02/28/22 (Tylenol Extra Strength) prednisone 20 mg tablet 40 mg PO DAILY #10 tabs 02/28/22 oxycodone 5 mg tablet 5 mg PO Q6H PRN pain #14 tabs 05/30/22 Allergies Allergy/AdvReac Type Severity Reaction Status Date / Time No Known Allergies Allergy Unknown NONE Verified 08/13/22 20:53 Review of Systems Review of Systems: Constitutional: No Fever, No Chills Cardiovascular: No Chest Pain, No SOB Respiratory: No Cough, No Dyspnea Gastrointestinal: Positive Nausea, positive Vomiting, No Diarrhea, No abdominal Pain Genitourinary: No Dysuria, No Hematuria Musculoskeletal: positive joint pain, No Myalgias, No Joint Swelling Skin: No Skin lacerations, No rash Neuro: No Weakness,, positive Dizziness, No Headache Psych: No Anxiety/Panic, No Depression Yes all other systems are reviewed and are negative Gastrointestinal: Gastrointestinal: Reports nausea PMFSH Past Medical History Attestation statement: The following information was validated with the patient. 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 Physical Exam Vital Signs: Vital Signs: Last Vital Signs Temp 98 F 08/13/22 20:49 Pulse 74 08/13/22 20:49 Resp 18 08/13/22 20:49 BP 140/80 H 08/13/22 20:49 Pulse Ox 94 08/13/22 20:49 O2 Del Method 08/13/22 20:49 BMI result Body Mass Index 25.6 Appearance: Alert. Oriented X3. Mild distress. Eyes: Pupils equal, round and reactive to light. Sclera nonicteric. ENT: Pharynx normal. Dry mucous membranes. Neck: Normal inspection. Neck supple. CVS: Normal heart rate and rhythm. Pulses normal. Respiratory: No respiratory distress. Lung sounds clear to auscultation all lobes. Abdomen: Soft and nontender. Skin: Skin warm and dry. Normal skin color. Normal skin turgor. Extremities: No lower extremity edema. Gait well-balanced well coordinated. Neuro: No motor deficit. No sensory deficit. Cranial nerves 2-12 intact. Course Course Course Narrative: 47-year-old female presents for evaluation for nausea, vomiting, dizziness that started today. She was diagnosed with COVID 3 weeks ago. Patient is requesting PO fluids, I did inform the patient that she should not be having anything to eat or drink because she is here for nausea vomiting evaluation. COVID test ordered in triage. Will add on influenza. Vital signs are stable within normal limits, afebrile. 21:34 patient appears dry, will order labs and fluids. Patient is verbally aggressive, demanding, and not easily redirected. 22:00 patient is asking for p.o. intake, again informed that she is here for nausea and vomiting and needs to be NPO, if patient has abnormal values further testing would be required. 23:50 white count 14.2, could possibly be reactive, BUN 27 which is consistent with patient's prior values, creatinine 1.33 which is an improvement from her prior value. Patient continues to be demanding, swearing. 23:50 patient leaving against medical advice. Medications Administered Discontinued Medications Generic Name Dose Route Start Last Admin Trade Name Niranjan PRN Reason Stop Dose Admin Sodium Chloride 1,000 mls @ 999 mls/hr 08/13/22 22:15 08/13/22 22:44 Ns IVCONT 08/13/22 23:15 999 mls/hr .Q1H1M MERCED Administration Ondansetron HCl 4 mg 08/13/22 22:01 08/13/22 22:46 Ondansetron Hcl 4 Mg/2 Ml Vial IVPUSH 08/13/22 22:02 4 mg ONCE ONE Administration Medical Decision Making Differential Diagnosis Differential Diagnoses: The differential diagnosis associated with the presentation includes Dehydration, gastroenteritis, COVID, influenza Lab Data MDM Lab Attestation statement: I reviewed the patient's lab results. 08/13/22 22:43 08/13/22 22:43 Labs: Lab Results 08/13/22 08/13/22 08/13/22 Range/Units 20:57 22:43 22:43 WBC 14.2 H (4.8-10.8) X10*3/uL RBC 5.04 (4.20-5.50) X10*6/uL Hgb 13.8 (12.0-16.0) g/dl Hct 44.1 (37.0-47.0) % MCV 87.5 (80.0-98.0) fL MCH 27.4 (27.0-33.0) pg MCHC 31.3 (31.0-35.0) g/dl RDW 17.4 H (11.0-16.0) % Plt Count 343 (160-400) X10*3/uL MPV 10.4 (9.4-12.3) fL Immature Gran % (Auto) 0.3 (0.0-0.4) % Neut % (Auto) 94.4 H (45-73) % Lymph % (Auto) 2.3 L (20-40) % [place] % (Auto) 2.5 (2-11) % Eos % (Auto) 0.4 (0-4) % Baso % (Auto) 0.1 (0-2) % Lymph # (Auto) 0.3 L (1.2-4.9) X10*3/uL [place] # (Auto) 0.4 (0.1-1.2) X10*3/uL Eos # (Auto) 0.1 (0.0-0.4) X10*3/uL Baso # (Auto) 0.0 (0.0-0.2) X10*3/uL Abs Immat Gran (auto) 0.04 H (0.00-0.03) X10*3/uL Absolute Neuts (auto) 13.4 H (2.0-8.3) x10*3/uL Absolute Nucleated RBC 0.000 (0.0-0.012) X10*3/uL Nucleated RBC % (auto) 0.0 (0.0-0.2) /100WBC Smear Tech's Comments VERIFIED Sodium 141 (135-145) mmol/L Potassium 3.4 D (3.3-5.1) mmol/L Chloride 104 (96-108) mmol/L Carbon Dioxide 24 (22-29) mmol/L Anion Gap 16 (12-20) BUN 27 H (9-16) mg/dL Creatinine 1.33 (0.5-1.4) mg/dL Estim Creat Clear Calc 46.8 Estimated GFR 43 Random Glucose 113 (60-115) mg/dL Calcium 8.7 (8.4-10.2) mg/dL COVID-19 (RADHA) Negative (Negative) COVID-19 Clin Com See Note Discharge Plan Discharge Clinical Impression: Dehydration, Nausea & vomiting, Dizziness Patient Disposition: Left Against Medical Advice Instructions: Acute Nausea and Vomiting (ED), Dehydration (ED), Dizziness (ED) Additional Instructions: You are leaving against medical advice. Your more than welcome to return at any time to continue care. Thank you for choosing this emergency department for evaluation. Please follow-up with primary care physician as needed. Return to the emergency department for any new, concerning, or worsening symptoms. Prescriptions: No Action multivitamin Tablet 1 tab PO DAILY hydrochlorothiazide 12.5 mg tablet 1 tab PO DAILY lorazepam [Ativan] 1 mg tablet 1 mg PO BID Qty: 60 0RF prednisone 20 mg tablet 40 mg PO DAILY Qty: 10 0RF acetaminophen [Tylenol Extra Strength] 500 mg tablet 1,000 mg PO Q6H PRN (Reason: pain) Qty: 60 0RF oxycodone 5 mg tablet 5 mg PO Q6H PRN (Reason: pain) Qty: 14 0RF Rx Instructions: Partial Fill upon patient request. Stand Alone Forms: Against Medical Advice Interventions: ED Discharge Assessment Last Done: 08/13/22 23:52
[2022-08-13] MEDS: 0.9 % Sodium Chloride 1,000 ML 999 ML IVCONT (22:44)
[2022-08-13] MEDS: ondansetron HCL 4 MG/2 ML VIAL IVPUSH (22:46)
[2022-08-13 23:19] LABS: Basophils Percent Auto 0.1 % (0-2); Eosinophils Absolute Auto 0.1 X10*3/uL (0.0-0.4); Eosinophils Percent Auto 0.4 % (0-4); Hematocrit 44.1 % (37.0-47.0); Hemoglobin 13.8 g/dl (12.0-16.0); Imm Gran Abs Auto 0.04 X10*3/uL (0.00-0.03); Imm Gran Pct Auto 0.3 % (0.0-0.4); Lymphocytes Absolute Auto 0.3 X10*3/uL (1.2-4.9); Lymphocytes Percent Auto 2.3 % (20-40); Mean Corpuscular HGB Conc 31.3 g/dl (31.0-35.0); Mean Corpuscular Hemoglobin 27.4 pg (27.0-33.0); Mean Corpuscular Volume 87.5 fL (80.0-98.0); Mean Platelet Volume 10.4 fL (9.4-12.3); Monocytes Absolute Auto 0.4 X10*3/uL (0.1-1.2); Monocytes Percent Auto 2.5 % (2-11); Neutrophils Absolute Auto 13.4 x10*3/uL (2.0-8.3); Neutrophils Percent Auto 94.4 % (45-73); Platelet Count 343 X10*3/uL (160-400); Red Blood Count 5.04 X10*6/uL (4.20-5.50); Red Cell Distribution Width 17.4 % (11.0-16.0); SCAN SMEAR FLAG 1; White Blood Count 14.2 X10*3/uL (4.8-10.8)
[2022-08-13 23:20] LABS: MANUAL DIFF FLAG SCAN
[2022-08-13 23:32] LABS: Anion Gap 16 (12-20); Blood Urea Nitrogen 27 mg/dL (9-16); Calcium 8.7 mg/dL (8.4-10.2); Carbon Dioxide 24 mmol/L (22-29); Chloride 104 mmol/L (96-108); Creatinine Clr Calc Pharmacy 46.8; Estimated Glomerular Filt Rate 43; Glucose Random 113 mg/dL (60-115); Potassium 3.4 mmol/L (3.3-5.1); Sodium 141 mmol/L (135-145)
[2022-08-13 23:35] LABS: SLIDE REVIEW VERIFIED
--- NOTE | 2022-08-14 00:05 | PC.NURSE ---
pt assess and discharge by provider, this RN removed Iv and reviewed documentation about leaving against medical advice.
== END 2022-08-14 00:07 | disposition left against medical advice (07) ==
PROVIDERS: Nurse Practitioner Family; Emergency Provider Student in an Organized Health Care Education/Training Program
DX: E86.0 Dehydration (principal); R11.2 Nausea with vomiting, unspecified; Z20.822 Contact with and (suspected) exposure to COVID-19; Z20.828 Contact with and (suspected) exposure to other viral communicable diseases; Z79.899 Other long term (current) drug therapy
CPT/HCPCS: 36415; 80048; 85025; 87635; 96361; 96374; 99283; 99284; J2405

== ENCOUNTER 2022-11-08 17:42 | Emergency (ER) | payer OTHER, SELFPAY ==
--- NOTE | ~2022-11-08 | XR_ITS ---
EXAMINATION: XR ANKLE, LEFT CLINICAL INFORMATION: Left ankle pain COMPARISON: None available. TECHNIQUE: AP, lateral, and mortise views of the left ankle. FINDINGS: The bones and soft tissues are normal. No fracture. Alignment is anatomic. Joint spaces are maintained. No joint effusion. XR/XR ankle LT min 3V IMPRESSION: Normal left ankle.
[2022-11-08 18:17] VITALS: BP 138/90; PULSE 80; RESP 18; TEMP 36.8; O2SAT 98; BMI 26.5
--- NOTE | 2022-11-08 18:19 | ED.GENADULT ---
HPI - General Adult General Chief complaint: Extremity Problem Stated complaint: Left ankle pain/swollen Time Seen by Provider: 11/08/22 22:16 Source: patient Mode of arrival: ambulatory Limitations: no limitations History of Present Illness HPI narrative: Patient with recurrent ankle pain and swelling off and on for few months with history of medullary sponge kidney with frequent stone is complaining of pain in the left flank with dysuria and frequent no history of trauma patient is on hydrochlorothiazide Related Data Home Medications Medication Instructions Recorded Confirmed hydrochlorothiazide 12.5 mg tablet 1 tab PO DAILY 12/17/20 12/17/20 multivitamin 1 tab PO DAILY 12/17/20 12/17/20 Previous Rx's Medication Instructions Recorded lorazepam 1 mg tablet (Ativan) 1 mg PO BID #60 tabs 12/23/20 acetaminophen 500 mg tablet 1,000 mg PO Q6H PRN pain #60 tabs 02/28/22 (Tylenol Extra Strength) prednisone 20 mg tablet 40 mg PO DAILY #10 tabs 02/28/22 oxycodone 5 mg tablet 5 mg PO Q6H PRN pain #14 tabs 05/30/22 cefuroxime axetil 250 mg tablet 250 mg PO BID 7 days #14 tabs 11/08/22 oxycodone-acetaminophen 5 mg-325 1 tab PO Q6H PRN pain #20 tabs 11/08/22 mg tablet (Percocet) prednisone 20 mg tablet 40 mg PO DAILY #10 tabs 11/08/22 Allergies Allergy/AdvReac Type Severity Reaction Status Date / Time No Known Allergies Allergy Unknown NONE Verified 08/13/22 20:53 Review of Systems Review of Systems: Yes all other systems are reviewed and are negative [facility] Past Medical History Medical History Acute cystitis with hematuria Anemia Chronic UTI HTN (hypertension) Nephroureterolithiasis Renal stones Social History Social History Household Members: Family Housing: House Do you presently have visiting nurse or other home services: No Alcohol intake: current Alcohol intake frequency: a few times a week Alcohol type: beer and hard liquor Patient Tobacco Use Status: Never used Tobacco Substance Use Type: Marijuana Advance Directives: No Advance Directives Information Provided: No service: No Current occupational status: employed 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 Physical Exam ED Vital Signs: Vital Signs - 24 hr 11/08/22 18:17 11/08/22 21:15 Temperature 98.3 F 98.7 F Pulse Rate 80 74 Respiratory Rate 18 16 Blood Pressure 138/90 H 182/108 H Pulse Oximetry 98 98 Oxygen Delivery Method Room Air Room Air BMI result Body Mass Index 26.5 Appearance: Alert. Oriented X3. No acute distress. ENT: Pharynx normal. Oral Mucosa moist Neck: Normal inspection. Neck supple. CVS: Normal heart rate and rhythm. Pulses normal. Respiratory: No respiratory distress. Equal air entry bilateral, no wheezing/rales/rhonchi Abdomen: Soft and nontender. Bowel sounds are present, no mass palpable, mild right CVA tenderness Skin: Skin warm and dry. Normal skin color. Normal skin turgor. Extremities: No lower extremity edema. No calf tenderness left ankle diffuse swelling with tenderness no signs of infection noted Neuro: Oriented X 3. Course Course Course Narrative: This is a 47-year-old female, with a past medical history of medullary sponge kidney, HSV, hypertension, who presents the emergency department with complaints of left ankle pain for months. No trauma or injury. Also reports right sided flank pain, no hematuria. Plan: labs, UA, left ankle x-ray ordered. Medications Administered Discontinued Medications Generic Name Dose Route Start Last Admin Trade Name Freq PRN Reason Stop Dose Admin Cefuroxime Axetil 250 mg 11/08/22 22:35 11/08/22 22:50 Cefuroxime Axetil 250 Mg Tablet PO 11/08/22 22:36 250 mg ONCE ONE Administration Dexamethasone 10 mg 11/08/22 22:35 11/08/22 22:50 Dexamethasone 2 Mg Tablet PO 11/08/22 22:36 10 mg ONCE ONE Administration Oxycodone HCl 5 mg 11/08/22 22:37 11/08/22 22:50 Oxycodone Hcl Immed Release 5 Mg Tablet PO 11/08/22 22:38 5 mg ONCE ONE Administration Medical Decision Making Medical Decision Making [facility] Narrative: Patient clinically has gout arthritis taking none thiazide diuretics likely the cause patient previous uric acid level was 10.5 pain 07/03 will recheck again today. Will give a course of prednisone patient advised does call her shirt sorter tomorrow about hydrochlorothiazide Lab Data 11/08/22 19:20 11/08/22 19:20 Labs: Lab Results 11/08/22 11/08/22 11/08/22 Range/Units 19:20 19:20 19:20 WBC 11.5 H (4.8-10.8) X10*3/uL RBC 4.17 L (4.20-5.50) X10*6/uL Hgb 11.5 L (12.0-16.0) g/dl Hct 37.1 (37.0-47.0) % MCV 89.0 (80.0-98.0) fL MCH 27.6 (27.0-33.0) pg MCHC 31.0 (31.0-35.0) g/dl RDW 16.4 H (11.0-16.0) % Plt Count 315 (160-400) X10*3/uL MPV 9.9 (9.4-12.3) fL Immature Gran % (Auto) 0.4 (0.0-0.4) % Neut % (Auto) 76.8 H (45-73) % Lymph % (Auto) 12.2 L (20-40) % Lake % (Auto) 9.2 (2-11) % Eos % (Auto) 1.1 (0-4) % Baso % (Auto) 0.3 (0-2) % Lymph # (Auto) 1.4 (1.2-4.9) X10*3/uL [place] # (Auto) 1.1 (0.1-1.2) X10*3/uL Eos # (Auto) 0.1 (0.0-0.4) X10*3/uL Baso # (Auto) 0.0 (0.0-0.2) X10*3/uL Abs Immat Gran (auto) 0.05 H (0.00-0.03) X10*3/uL Absolute Neuts (auto) 8.8 H (2.0-8.3) x10*3/uL Absolute Nucleated RBC 0.000 (0.0-0.012) X10*3/uL Nucleated RBC % (auto) 0.0 (0.0-0.2) /100WBC Sodium 139 (135-145) mmol/L Potassium 3.4 (3.3-5.1) mmol/L Chloride 105 (96-108) mmol/L Carbon Dioxide 25 (22-29) mmol/L Anion Gap 12 (12-20) BUN 20 H (9-16) mg/dL Creatinine 1.58 H (0.5-1.4) mg/dL Estim Creat Clear Calc 40.0 Estimated GFR 35 Random Glucose 119 H (60-115) mg/dL Calcium 8.7 (8.4-10.2) mg/dL Magnesium 1.9 (1.6-2.6) mg/dL Total Bilirubin 0.1 (0.0-1.0) mg/dL Direct Bilirubin < 0.2 (0.0-0.5) mg/dL AST 11 (5-31) U/L ALT 10 (0-31) U/L Alkaline Phosphatase 75 (39-117) U/L B-Natriuretic Peptide 30 (<100) pg/mL Total Protein 6.5 (6.5-8.0) g/dL Albumin 3.5 (3.5-5.0) g/dL Lipase 28 (8-78) U/L Urine Color Urine Appearance Urine pH (5.0-9.0) Ur Specific [place] (1.005-1.025) Urine Protein (Neg-Trace) mg/dL Urine Glucose (UA) (Negative) mg/dL Urine Ketones (Negative) mg/dL Urine Blood (Negative) Urine Nitrite (Negative) Ur Leukocyte Esterase (Negative) Urine RBC (0-2) /HPF Urine WBC (0-5) /HPF Ur Squamous Epith Cells (0-2) /HPF Urine Bacteria (None Seen) Hyaline Casts (0-2) /LPF 11/08/22 Range/Units 22:17 WBC (4.8-10.8) X10*3/uL RBC (4.20-5.50) X10*6/uL Hgb (12.0-16.0) g/dl Hct (37.0-47.0) % MCV (80.0-98.0) fL MCH (27.0-33.0) pg MCHC (31.0-35.0) g/dl RDW (11.0-16.0) % Plt Count (160-400) X10*3/uL MPV (9.4-12.3) fL Immature Gran % (Auto) (0.0-0.4) % Neut % (Auto) (45-73) % Lymph % (Auto) (20-40) % [place] % (Auto) (2-11) % Eos % (Auto) (0-4) % Baso % (Auto) (0-2) % Lymph # (Auto) (1.2-4.9) X10*3/uL [place] # (Auto) (0.1-1.2) X10*3/uL Eos # (Auto) (0.0-0.4) X10*3/uL Baso # (Auto) (0.0-0.2) X10*3/uL Abs Immat Gran (auto) (0.00-0.03) X10*3/uL Absolute Neuts (auto) (2.0-8.3) x10*3/uL Absolute Nucleated RBC (0.0-0.012) X10*3/uL Nucleated RBC % (auto) (0.0-0.2) /100WBC Sodium (135-145) mmol/L Potassium (3.3-5.1) mmol/L Chloride (96-108) mmol/L Carbon Dioxide (22-29) mmol/L Anion Gap (12-20) BUN (9-16) mg/dL Creatinine (0.5-1.4) mg/dL Estim Creat Clear Calc Estimated GFR Random Glucose (60-115) mg/dL Calcium (8.4-10.2) mg/dL Magnesium (1.6-2.6) mg/dL Total Bilirubin (0.0-1.0) mg/dL Direct Bilirubin (0.0-0.5) mg/dL AST (5-31) U/L ALT (0-31) U/L Alkaline Phosphatase (39-117) U/L B-Natriuretic Peptide (<100) pg/mL Total Protein (6.5-8.0) g/dL Albumin (3.5-5.0) g/dL Lipase (8-78) U/L Urine Color Yellow Urine Appearance Clear Urine pH 7.0 (5.0-9.0) Ur Specific [place] 1.010 (1.005-1.025) Urine Protein Trace (Neg-Trace) mg/dL Urine Glucose (UA) Negative (Negative) mg/dL Urine Ketones Negative (Negative) mg/dL Urine Blood Trace H (Negative) Urine Nitrite Positive H (Negative) Ur Leukocyte Esterase Small (1+) H (Negative) Urine RBC 3-5 H (0-2) /HPF Urine WBC 11-20 H (0-5) /HPF Ur Squamous Epith Cells 0-2 (0-2) /HPF Urine Bacteria Trace (None Seen) Hyaline Casts 0-2 (0-2) /LPF Discharge Plan Discharge Clinical Impression: Gout, UTI (urinary tract infection) Patient Disposition: Home, Self-Care Instructions: Urinary Tract Infection in Women (DC), Gout (ED) Additional Instructions: Likely have gouty arthritis Call your kidney specialist about hydrochlorothiazide/regarding possibility of flaring up of gout Take prednisone as prescribed Percocet and antibiotic for UTI Drink plenty of fluid Prescriptions: New cefuroxime axetil 250 mg tablet 250 mg PO BID 7 Days Qty: 14 0RF prednisone 20 mg tablet 40 mg PO DAILY Qty: 10 0RF oxycodone-acetaminophen [Percocet] 5-325 mg tablet 1 tab PO Q6H PRN (Reason: pain) Qty: 20 0RF Rx Instructions: Partial Fill upon patient request. No Action multivitamin Tablet 1 tab PO DAILY hydrochlorothiazide 12.5 mg tablet 1 tab PO DAILY lorazepam [Ativan] 1 mg tablet 1 mg PO BID Qty: 60 0RF prednisone 20 mg tablet 40 mg PO DAILY Qty: 10 0RF acetaminophen [Tylenol Extra Strength] 500 mg tablet 1,000 mg PO Q6H PRN (Reason: pain) Qty: 60 0RF oxycodone 5 mg tablet 5 mg PO Q6H PRN (Reason: pain) Qty: 14 0RF Rx Instructions: Partial Fill upon patient request.
[2022-11-08 19:28] LABS: MANUAL DIFF FLAG NO
[2022-11-08 19:29] LABS: Basophils Percent Auto 0.3 % (0-2); Eosinophils Absolute Auto 0.1 X10*3/uL (0.0-0.4); Eosinophils Percent Auto 1.1 % (0-4); Hematocrit 37.1 % (37.0-47.0); Hemoglobin 11.5 g/dl (12.0-16.0); Imm Gran Abs Auto 0.05 X10*3/uL (0.00-0.03); Imm Gran Pct Auto 0.4 % (0.0-0.4); Lymphocytes Absolute Auto 1.4 X10*3/uL (1.2-4.9); Lymphocytes Percent Auto 12.2 % (20-40); Mean Corpuscular Hemoglobin 27.6 pg (27.0-33.0); Mean Platelet Volume 9.9 fL (9.4-12.3); Monocytes Absolute Auto 1.1 X10*3/uL (0.1-1.2); Monocytes Percent Auto 9.2 % (2-11); Neutrophils Absolute Auto 8.8 x10*3/uL (2.0-8.3); Neutrophils Percent Auto 76.8 % (45-73); Platelet Count 315 X10*3/uL (160-400); Red Blood Count 4.17 X10*6/uL (4.20-5.50); Red Cell Distribution Width 16.4 % (11.0-16.0); White Blood Count 11.5 X10*3/uL (4.8-10.8)
[2022-11-08 19:49] LABS: Alanine Aminotransferase 10 U/L (0-31); Albumin Level 3.5 g/dL (3.5-5.0); Alkaline Phosphatase 75 U/L (39-117); Anion Gap 12 (12-20); Aspartate Amino Transferase 11 U/L (5-31); Bilirubin Direct < 0.2 mg/dL (0.0-0.5); Bilirubin Total 0.1 mg/dL (0.0-1.0); Blood Urea Nitrogen 20 mg/dL (9-16); Calcium 8.7 mg/dL (8.4-10.2); Carbon Dioxide 25 mmol/L (22-29); Chloride 105 mmol/L (96-108); Estimated Glomerular Filt Rate 35; Glucose Random 119 mg/dL (60-115); Lipase 28 U/L (8-78); Magnesium 1.9 mg/dL (1.6-2.6); Potassium 3.4 mmol/L (3.3-5.1); Sodium 139 mmol/L (135-145); Total Protein 6.5 g/dL (6.5-8.0)
[2022-11-08 19:53] LABS: B Type Natriuretic Peptide 30 pg/mL (<100)
[2022-11-08 21:15] VITALS: BP 182/108; PULSE 74; RESP 16; TEMP 37.1; O2SAT 98
[2022-11-08 22:26] LABS: Appearance Urine Clear; Color Urine Yellow; Glucose Urine UA Negative (Negative); Leukocyte Esterase Urine Small (1+) (Negative); Nitrite Urine Positive (Negative); UMIC TRIGGER UACC YES; Urine Blood Trace (Negative); Urine Ketones Negative (Negative); Urine Protein Trace mg/dL (Neg-Trace)
[2022-11-08 22:28] LABS: Bacteria Urine Trace (None Seen); Hyaline Casts Urine 0-2 /LPF (0-2); Squamous Epithelial Cell Urine 0-2 /HPF (0-2); UACC Culture Trigger YES
[2022-11-08] MEDS: oxyCODONE HCl Immed Release 5 MG TABLET PO (22:50)
[2022-11-08] MEDS: dexAMETHasone 2 MG TABLET 10 MG PO (22:50)
[2022-11-08 23:33] VITALS: BP 179/96; PULSE 66; RESP 16; TEMP 37.2; O2SAT 100
--- NOTE | 2022-11-08 23:39 | PC.NURSE ---
assumed care of pt no apparent distress aox4 awaiting discharge instructions
[2022-11-08 23:48] LABS: Uric Acid 9.4 mg/dL (2.4-5.7)
--- NOTE | 2022-11-09 00:04 | PC.NURSE ---
Discharge instructions given and explained to pt No apparent distress ambulates safely and independently [id number]
== END 2022-11-09 00:04 | disposition home or self-care (01) ==
PROVIDERS: Physician Assistant Medical; Emergency Provider Internal Medicine
DX: M10.9 Gout, unspecified (principal); M25.572 Pain in left ankle and joints of left foot; N39.0 Urinary tract infection, site not specified; Z87.440 Personal history of urinary (tract) infections; Z79.899 Other long term (current) drug therapy
CPT/HCPCS: 36415; 73610; 80048; 80076; 81001; 83690; 83735; 83880; 84550; 85025; 87086; 99283; 99284; J8540

== ENCOUNTER 2022-12-06 12:15 | Outpatient (REF) | payer OTHER, SELFPAY ==
[2022-12-06 13:30] LABS: Uric Acid 9.6 mg/dL (2.4-5.7)
== END 2022-12-06 12:16 | disposition home or self-care (01) ==
LOC: HO.LAB 12:15
PROVIDERS: PCP Internal Medicine; Visit Provider Physician Assistant
DX: M10.00 Idiopathic gout, unspecified site (principal)
CPT/HCPCS: 36415; 84550

== ENCOUNTER 2023-07-25 08:04 | Outpatient (REF) | payer OTHER, SELFPAY ==
[2023-07-25 08:22] LABS: MANUAL DIFF FLAG NO
[2023-07-25 08:39] LABS: Basophils Absolute Auto 0.1 X10*3/uL (0.0-0.2); Basophils Percent Auto 0.7 % (0-2); Eosinophils Absolute Auto 0.6 X10*3/uL (0.0-0.4); Eosinophils Percent Auto 5.5 % (0-4); Hematocrit 35.9 % (37.0-47.0); Hemoglobin 10.8 g/dl (12.0-16.0); Imm Gran Abs Auto 0.04 X10*3/uL (0.00-0.03); Imm Gran Pct Auto 0.4 % (0.0-0.4); Lymphocytes Absolute Auto 1.7 X10*3/uL (1.2-4.9); Mean Corpuscular HGB Conc 30.1 g/dl (31.0-35.0); Mean Corpuscular Hemoglobin 24.4 pg (27.0-33.0); Mean Platelet Volume 10.3 fL (9.4-12.3); Monocytes Absolute Auto 1.1 X10*3/uL (0.1-1.2); Monocytes Percent Auto 10.5 % (2-11); Neutrophils Percent Auto 66.9 % (45-73); Platelet Count 378 X10*3/uL (160-400); Red Blood Count 4.43 X10*6/uL (4.20-5.50); Red Cell Distribution Width 17.7 % (11.0-16.0); White Blood Count 10.5 X10*3/uL (4.8-10.8)
[2023-07-25 08:56] LABS: Parathyroid Hormone Intact 145.5 pg/mL (8.7-77.1)
[2023-07-25 08:59] LABS: Anion Gap 12 (12-20); Blood Urea Nitrogen 19 mg/dL (9-16); Calcium 9.1 mg/dL (8.4-10.2); Carbon Dioxide 26 mmol/L (22-29); Chloride 105 mmol/L (96-108); Estimated Glomerular Filt Rate 39; Potassium 3.7 mmol/L (3.3-5.1); Sodium 139 mmol/L (135-145)
[2023-07-25 09:50] LABS: Appearance Urine Clear; Color Urine Yellow; Glucose Urine UA Negative (Negative); Leukocyte Esterase Urine Moderate (2+) (Negative); Nitrite Urine Negative (Negative); PH 7.5 (5.0-9.0); UMIC TRIGGER UA YES; Urine Blood Negative (Negative); Urine Ketones Negative (Negative); Urine Protein Trace mg/dL (Neg-Trace)
[2023-07-25 09:52] LABS: Bacteria Urine Trace (None Seen); Hyaline Casts Urine 0-2 /LPF (0-2); RBC Urine 0-2 /HPF (0-2); WBC Urine 21-50 /HPF (0-5)
[2023-07-25 10:30] LABS: Creatinine Urine 67.89 mg/dL; Protein/Creatinine Ratio, Ur 0.27 (<0.2); Total Protein Urine Random 18 mg/dL (<12)
== END 2023-07-25 08:05 | disposition home or self-care (01) ==
LOC: HO.LAB 08:04
PROVIDERS: Visit Provider Physician Assistant
DX: E55.9 Vitamin D deficiency, unspecified (principal); N18.31 Chronic kidney disease, stage 3a
CPT/HCPCS: 36415; 80051; 81001; 82306; 82310; 82565; 82570; 83970; 84156; 84520; 85025

== ENCOUNTER 2023-08-23 10:20 | Emergency (ER) | payer OTHER, SELFPAY ==
--- NOTE | ~2023-08-23 | XR_ITS ---
EXAMINATION: XR KNEE, RIGHT CLINICAL INFORMATION: Pain and swelling. COMPARISON: None available. TECHNIQUE: Four views of the right knee. FINDINGS: No fracture or joint effusion. Alignment is anatomic. Joint spaces are maintained. No abnormal soft tissue calcification. XR/XR knee RT 3V IMPRESSION: Normal right knee.
[2023-08-23 10:30] VITALS: BP 113/72; PULSE 96; RESP 17; TEMP 36.6; O2SAT 98; BMI 28.0
--- NOTE | 2023-08-23 10:58 | ED.GENADULT ---
HPI - General Adult General Chief complaint: Extremity Problem Stated complaint: Swelling in knee no injury Time Seen by Provider: 08/23/23 10:44 Source: patient Mode of arrival: ambulatory Limitations: no limitations History of Present Illness HPI narrative: Patient is a 48-year-old female with history of gout, R knee effusion presenting to the emergency department with complaint of right knee pain and swelling for the past 3 days. She denies fall or other trauma. States that she recently was on a course of prednisone for gout to her ankle. She contacted her PCP when she developed the knee swelling and was prescribed 20 mg of prednisone of which she has taken 1 dose. Has not taken any other ulnc-ovl-[id number] medications. Denies fevers. Patient states that she needs to stand for 12 hours at a time at her job. complaint: R knee pain and swelling Onset (ago): day(s) Location: right and lower extremity Radiation: non-radiation Severity: severe Quality: aching Pain Consistency: constant Relieving factors: rest Exacerbating factors: movement Associated symptoms: denies other symptoms Treatments prior to arrival: other (prednisone) Related Data Home Medications Medication Instructions Recorded Confirmed hydrochlorothiazide 12.5 mg tablet 1 tab PO DAILY 12/17/20 12/17/20 multivitamin 1 tab PO DAILY 12/17/20 12/17/20 Previous Rx's Medication Instructions Recorded lorazepam 1 mg tablet (Ativan) 1 mg PO BID #60 tabs 12/23/20 acetaminophen 500 mg tablet 1,000 mg (2 x 500 mg) PO Q6H PRN 02/28/22 (Tylenol Extra Strength) pain #60 tabs prednisone 20 mg tablet 40 mg (2 x 20 mg) PO DAILY #10 tabs 02/28/22 oxycodone 5 mg tablet 5 mg PO Q6H PRN pain #14 tabs 05/30/22 cefuroxime axetil 250 mg tablet 250 mg PO BID 7 days #14 tabs 11/08/22 oxycodone-acetaminophen 5 mg-325 1 tab PO Q6H PRN pain #20 tabs 11/08/22 mg tablet (Percocet) prednisone 20 mg tablet 40 mg (2 x 20 mg) PO DAILY #10 tabs 11/08/22 Allergies Allergy/AdvReac Type Severity Reaction Status Date / Time No Known Allergies Allergy Unknown NONE Verified 08/13/22 20:53 Review of Systems Review of Systems: As per HPI Yes all other systems are reviewed and are negative Constitutional: Constitutional: Reports as per HPI [facility] Past Medical History Medical History Acute cystitis with hematuria Anemia Chronic UTI HTN (hypertension) Nephroureterolithiasis Renal stones Social History Social History Household Members: Family Housing: House Do you presently have visiting nurse or other home services: No Alcohol intake: current Alcohol intake frequency: a few times a week Alcohol type: beer and hard liquor Patient Tobacco Use Status: Never used Tobacco Substance Use Type: Marijuana Advance Directives: No service: No Current occupational status: employed 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 Physical Exam ED Vital Signs: Vital Signs - 24 hr 08/23/23 10:30 Temperature 97.9 F Pulse Rate 96 Respiratory Rate 17 Blood Pressure 113/72 Pulse Oximetry 98 Oxygen Delivery Method Room Air BMI result Body Mass Index 28.0 Vital signs have been reviewed and appear to be correct. Blood pressure normal. Heart rate normal. Respiratory rate normal. Temperature normal. Oxygen saturation normal. Const General: cooperative, healthy appearing and no acute distress Orientation/consciousness: oriented to person, oriented to place, oriented to time and patient oriented x3 Limitations: no limitations HENMT Head: Yes normocephalic and Yes atraumatic Ears: external ears normal General nose exam: Normal external nose present Face and sinus: Yes face symmetric Mouth: oropharynx normal and moist mucous membranes Throat: Yes uvula midline Eyes Pupils: Equal, round and reactive pupils present Neck Neck: Yes normal visual inspection and Yes supple Resp Effort & Inspection: normal respiratory effort and able to speak in complete sentences Auscultation: clear to auscultation bilaterally Cardio Rate: regular rate Rhythm: regular rhythm Heart sounds: S1 normal heart sound present and S2 normal heart sound present GI Palpation (GI): Soft to palpation and nontender Auscultation: normoactive bowel sounds General: Yes no CVA tenderness Back/Spine/Pelvis Back: no CVA tenderness Skin General skin exam: elasticity normal and turgor normal Neuro General: oriented to person, oriented to place, oriented to time, patient oriented x3, moves all extremities, no focal motor deficits and CN's II-XI intact bilaterally Cranial nerves: Yes Equal, round and reactive pupils present Cognition (Neuro): normal cognition Extrem General: Yes full ROM, Yes normal exam except as noted, Yes no pedal edema and Yes no calf tenderness Right lower extremity: knee Details: tenderness Location: of the medial joint line, swelling Location: of the patella (medially), normal ROM and knee ligament exam normal; no ecchymosis and no crepitus Psych Mental Status: mental status grossly normal Affect: normal affect Thought process: Normal thought process present Medical Decision Making Medical Decision Making MDM Narrative: Patient is a 48-year-old female with history of gout, R knee effusion presenting to the emergency department with complaint of right knee pain and swelling for the past 3 days. On exam patient is awake, A+Ox3, VS WNL, afebrile, normal neurological exam without focal deficits, physical exam findings as above. Given reported symptoms and physical exam findings, initial differential includes effusion, strain, sprain. Do not suspect gout, septic joint, fracture. Upon review of EMR, patient noted to have history of right knee effusion. No concerning findings on right knee x-ray on my review. Final radiologist read not available at time of discharge. Patient will be notified with any concerning findings. DIEGO wrap applied with +CMS distal before and after. Patient advised to keep leg elevated while at rest, ice intermittently, use Tylenol as needed, knee brace. Will refer to orthopedics for further evaluation and management. Return precautions discussed. Patient verbalized understanding of and agreement with plan. Differential Diagnosis Differential Diagnoses: The differential diagnosis associated with the presentation includes As per MDM. Independent Interpretation I performed an independent interpretation of an: Plain X-Ray Interpretation: No concerning findings External Record Review External record reviewed: Inpatient record, Office record and Outpatient record Discharge Plan Discharge Clinical Impression: Effusion of knee joint right Patient Disposition: Home, Self-Care Instructions: Swollen Knee Joint (ED), Swollen Joint (ED) Additional Instructions: You were evaluated in the emergency department today for right knee pain and swelling. This is likely due to collection of fluid in your knee from standing while at work. You were provided with an Diego wrap in the emergency department for support. You can also use the knee brace provided to you by orthopedics or purchase one over the counter. Please follow-up with the orthopedic office for any ongoing symptoms. You should keep your leg elevated while at rest and apply ice for 10-15 minutes at a time several times daily using caution not to apply ice directly to your skin. Return to the emergency department if you develop redness, increased swelling, fever or any other concerning symptoms. Prescriptions: No Action multivitamin Tablet 1 tab PO DAILY hydrochlorothiazide 12.5 mg tablet 1 tab PO DAILY lorazepam [Ativan] 1 mg tablet 1 mg PO BID Qty: 60 0RF prednisone 20 mg tablet 40 mg PO DAILY Qty: 10 0RF acetaminophen [Tylenol Extra Strength] 500 mg tablet 1,000 mg PO Q6H PRN (Reason: pain) Qty: 60 0RF oxycodone 5 mg tablet 5 mg PO Q6H PRN (Reason: pain) Qty: 14 0RF Rx Instructions: Partial Fill upon patient request. cefuroxime axetil 250 mg tablet 250 mg PO BID 7 Days Qty: 14 0RF prednisone 20 mg tablet 40 mg PO DAILY Qty: 10 0RF oxycodone-acetaminophen [Percocet] 5-325 mg tablet 1 tab PO Q6H PRN (Reason: pain) Qty: 20 0RF Rx Instructions: Partial Fill upon patient request. Referrals: [facility] [Provider Group] Stand Alone Forms: Work/School Release
== END 2023-08-23 14:15 | disposition home or self-care (01) ==
PROVIDERS: Emergency Provider Emergency Medicine; PCP Internal Medicine
DX: M25.461 Effusion, right knee (principal)
CPT/HCPCS: 73562; 99283

== ENCOUNTER 2023-08-29 05:56 | Outpatient (REF) | payer OTHER, SELFPAY ==
--- NOTE | ~2023-08-29 | XR_ITS ---
EXAMINATION: XR AP BILATERAL KNEE STANDING. RIGHT KNEE 1 VIEW CLINICAL INFORMATION: Pain in right knee. COMPARISON: None available. TECHNIQUE: AP knee standing and right knee patellofemoral view. FINDINGS: AP bilateral knee standing reveals loss of medial and lateral compartment joint space. There is no periarticular spurring or loose bodies. No fracture or dislocation. A single right knee sunrise view reveals normal patellofemoral joint space. No loose bodies are bony erosive changes. XR/XR knee LT 2V IMPRESSION: Mild degenerative changes medial and lateral compartment bilateral knee. No visible acute fracture, dislocation or subluxation seen. Unremarkable right knee sunrise view.
--- NOTE | ~2023-08-29 | XR_ITS ---
EXAMINATION: XR AP BILATERAL KNEE STANDING. RIGHT KNEE 1 VIEW CLINICAL INFORMATION: Pain in right knee. COMPARISON: None available. TECHNIQUE: AP knee standing and right knee patellofemoral view. FINDINGS: AP bilateral knee standing reveals loss of medial and lateral compartment joint space. There is no periarticular spurring or loose bodies. No fracture or dislocation. A single right knee sunrise view reveals normal patellofemoral joint space. No loose bodies are bony erosive changes. XR/XR knee RT 1V IMPRESSION: Mild degenerative changes medial and lateral compartment bilateral knee. No visible acute fracture, dislocation or subluxation seen. Unremarkable right knee sunrise view.
== END 2023-08-29 05:57 | disposition home or self-care (01) ==
LOC: HO.HOSX 05:56
PROVIDERS: Visit Provider Physician Assistant
DX: M25.561 Pain in right knee (principal); M25.461 Effusion, right knee; M17.11 Unilateral primary osteoarthritis, right knee; Z79.891 Long term (current) use of opiate analgesic; Z79.52 Long term (current) use of systemic steroids
CPT/HCPCS: 73560; 99212

== ENCOUNTER 2023-08-29 13:44 | Outpatient (AMB) | payer OTHER, SELFPAY ==
--- NOTE | 2023-08-29 14:17 | A.OFFVIS_ITS ---
Intake Vital Signs 08/29/23 14:25 Height 5 ft 2 in Weight 153 lb BMI 28.0 Intake Visit Reasons: OV - right knee pain Intake Note: Ginger feldman 48 year old female presents today for a follow up of right knee pain. Patient reports her symptoms had improved since her last visit however her pain and swelling has returned for about a week. States constant pain that wraps around her knee. She is unable to fully bend at her knee. Finds some relief with Tylenol. She tries to avoid taking ibuprofen due to a kidney condition. Allergies No Known Allergies Allergy (Unknown, Verified 08/29/23 14:25) NONE Medication List - Last Reconciled 08/29/23 by Eloina Araujo PA-C acetaminophen (Tylenol Extra Strength) 1,000 mg (2 x 500 mg) PO Q6H PRN cefuroxime axetil 250 mg PO BID 7 days ergocalciferol (vitamin D2) 1,250 mcg PO QWEEK ferrous gluconate 324 mg PO DAILY hydrochlorothiazide 1 tab PO DAILY lorazepam (Ativan) 1 mg PO BID multivitamin 1 tab PO DAILY oxycodone 5 mg PO Q6H PRN oxycodone-acetaminophen 5-325 mg (Percocet) 1 tab PO Q6H PRN prednisone 40 mg (2 x 20 mg) PO DAILY prednisone 40 mg (2 x 20 mg) PO DAILY HPI OV - right knee pain HPI Details 48-year-old female who returns to the [facility] today for a follow-up of right knee pain. She states she had improvement in her symptoms however her pain and swelling returned about a week ago. She currently states she has constant pain that wraps around her knee. She is unable to fully bend her knee. She finds mild relief with Tylenol. She tries to avoid taking ibuprofen due to a kidney condition. She has h/o gout and does not take her allopurinol. 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 Review of Systems Const All systems reviewed & are unremarkable except as noted in HPI and below Physical Exam Vital Signs: BMI result Body Mass Index 28.0 Extrem Other: Right knee: Skin intact, no erythema. Moderate joint effusion. Tenderness along the medial and lateral joint line. Full ROM with crepitus. Negative Ewa?s. No ligamentous laxity. NVI. Results Reviewed Results Reviewed: Xrays were obtained in the office today and personally reviewed by me of the right knee show mild medial compartment oa Assessment & Plan Assessment & Plan (1) Effusion, right knee: Code(s): M25.461 - Effusion, right knee (2) Osteoarthritis of right knee: Code(s): M17.11 - Unilateral primary osteoarthritis, right knee Qualifiers: Osteoarthritis type: primary Qualified Code(s): M17.11 - Unilateral primary osteoarthritis, right knee Plan We discussed options which include aspiration and injection which she is interested in. she would prefer to come back tomorrow to have this procedure done as she would be more prepared. I also encouraged her to take her gout medication to help prevent flare ups. I did explain I will send the fluid to the lab to further assess for gout. Orders: Orders XR knee RT 1V Today M25.561 - Pain in right knee Patient Instructions: Scribed for Eloina Araujo PA-C, by Marlon De La Rosa senior medical technologist, on 08/29/2023 at 2:00 PM EST. Eloina Rao PA-C, have personally reviewed and agree with the information entered by the scribe. Coding Level of Care Code Est Pt Level 3 (51393) Diagnoses Effusion, right knee M25.461 Primary osteoarthritis of right knee M17.11 Osteoarthritis type: primary
[2023-08-29 14:25] VITALS: BMI 28.0
== END 2023-08-29 14:44 | disposition home or self-care (01) ==
PROVIDERS: PCP Internal Medicine; Visit Provider Physician Assistant
DX: M25.461 Effusion, right knee (principal); M17.11 Unilateral primary osteoarthritis, right knee
CPT/HCPCS: 99213

== ENCOUNTER 2023-08-30 10:33 | Outpatient (REF) | payer OTHER, SELFPAY ==
[2023-08-30 10:58] LABS: MANUAL DIFF FLAG NO
[2023-08-30 11:28] LABS: Basophils Absolute Auto 0.1 X10*3/uL (0.0-0.2); Basophils Percent Auto 0.4 % (0-2); Eosinophils Absolute Auto 0.2 X10*3/uL (0.0-0.4); Eosinophils Percent Auto 1.3 % (0-4); Hematocrit 35.8 % (37.0-47.0); Hemoglobin 10.8 g/dl (12.0-16.0); Imm Gran Abs Auto 0.16 X10*3/uL (0.00-0.03); Lymphocytes Absolute Auto 1.5 X10*3/uL (1.2-4.9); Lymphocytes Percent Auto 9.4 % (20-40); Mean Corpuscular HGB Conc 30.2 g/dl (31.0-35.0); Mean Corpuscular Volume 79.6 fL (80.0-98.0); Mean Platelet Volume 10.1 fL (9.4-12.3); Monocytes Absolute Auto 1.3 X10*3/uL (0.1-1.2); Neutrophils Absolute Auto 12.5 x10*3/uL (2.0-8.3); Neutrophils Percent Auto 79.9 % (45-73); Platelet Count 406 X10*3/uL (160-400); Red Cell Distribution Width 18.6 % (11.0-16.0); White Blood Count 15.6 X10*3/uL (4.8-10.8)
[2023-08-30 11:37] LABS: Estimated Average Glucose 128 mg/dL; Hemoglobin A1c % 6.1 % (<6.0)
[2023-08-30 12:08] LABS: Alanine Aminotransferase 8 U/L (0-31); Albumin Level 3.5 g/dL (3.5-5.0); Alkaline Phosphatase 86 U/L (39-117); Anion Gap 15 (12-20); Aspartate Amino Transferase 8 U/L (5-31); Bilirubin Total 0.2 mg/dL (0.0-1.0); Blood Urea Nitrogen 26 mg/dL (9-16); Calcium 9.1 mg/dL (8.4-10.2); Carbon Dioxide 25 mmol/L (22-29); Chloride 101 mmol/L (96-108); Estimated Glomerular Filt Rate 40; Glucose Random 204 mg/dL (60-115); Iron 18 mcg/dL (30-160); Percent Iron Saturation 6 % (15-50); Potassium 3.6 mmol/L (3.3-5.1); Sodium 137 mmol/L (135-145); Total Iron Binding Capacity 288 mcg/dL (228-428); Total Protein 6.8 g/dL (6.5-8.0); Unsaturated Iron Binding 270 ug/dL; Uric Acid 8.9 mg/dL (2.4-5.7)
[2023-08-30 12:09] LABS: Parathyroid Hormone Intact 119.3 pg/mL (8.7-77.1)
[2023-08-30 12:10] LABS: Anion Gap 14 (12-20); Blood Urea Nitrogen 26 mg/dL (9-16); Carbon Dioxide 25 mmol/L (22-29); Chloride 102 mmol/L (96-108); Estimated Glomerular Filt Rate 39; Potassium 3.5 mmol/L (3.3-5.1); Sodium 137 mmol/L (135-145)
[2023-08-30 12:13] LABS: Ferritin 16 ng/mL (10-250); Vitamin D 25-OH Total 25.2 ng/mL (>30)
[2023-08-30 12:33] LABS: Appearance Urine Cloudy; Color Urine Red; Glucose Urine UA Negative (Negative); Leukocyte Esterase Urine Moderate (2+) (Negative); Nitrite Urine Negative (Negative); PH 6.5 (5.0-9.0); Specific Gravity - Urine 1.015 (1.005-1.025); UMIC TRIGGER UA YES; Urine Blood Large (3+) (Negative); Urine Ketones Negative (Negative); Urine Protein 100 (2+) mg/dL (Neg-Trace)
[2023-08-30 12:43] LABS: Bacteria Urine 1+ (None Seen); Hyaline Casts Urine 0-2 /LPF (0-2); RBC Urine >20 /HPF (0-2); WBC Urine >50 /HPF (0-5)
[2023-08-30 12:55] LABS: Creatinine Urine 78.23 mg/dL; Microalbum/Creatinine Ratio Ur 474.2 ug/mg cr (<30)
[2023-08-30 13:21] LABS: Erythrocyte Sedimentation Rate 19 MM/HR (0-20)
== END 2023-08-30 10:34 | disposition home or self-care (01) ==
LOC: HO.LAB 10:33
PROVIDERS: Absent Provider Physician Assistant; PCP Internal Medicine; Visit Provider Internal Medicine
DX: E61.1 Iron deficiency (principal); R73.03 Prediabetes; M25.562 Pain in left knee; E55.9 Vitamin D deficiency, unspecified; I12.9 Hypertensive chronic kidney disease with stage 1 through stage 4 chronic kidney disease, or unspecified chronic kidney disease; N18.31 Chronic kidney disease, stage 3a
CPT/HCPCS: 36415; 80051; 80053; 81001; 82043; 82306; 82310; 82565; 82570; 82728; 83036; 83540; 83970; 84520; 84550; 85025; 85652

== ENCOUNTER 2024-02-04 11:20 | Outpatient (REF) | payer OTHER, SELFPAY ==
--- NOTE | ~2024-02-04 | US_ITS ---
EXAMINATION: US RETROPERITONEAL COMPLETE (RENAL) CLINICAL INFORMATION: Kidney stone, . COMPARISON: CT dated 10/27/2020, KUB 10/29/2019 TECHNIQUE: Real-time imaging of the kidneys and bladder. FINDINGS: RIGHT KIDNEY: 8.0 x 3.8 x 3.5 cm (SAG x AP x TRV). Kidney is atrophic in size. Renal cortical thickness is normal. Mild hydronephrosis. Increased echogenicity of the renal pelvis which can be seen in medullary sponge kidney. LEFT KIDNEY: 12.1 x 4.5 x 4.6 cm (SAG x AP x TRV). The kidney is normal in size, contour, and echogenicity. Renal cortical thickness is normal. Mild hydronephrosis. Increased echogenicity of the renal pelvis which can be seen in medullary sponge kidney. US/US renal BI IMPRESSION: Mild bilateral hydronephrosis. Increased echogenicity of the renal pelvis which can be seen in medullary sponge kidney. Electronically signed by: Kala Yang MD 02/04/2024 06:11 PM EDT
[2024-02-04 12:31] LABS: MANUAL DIFF FLAG NO
[2024-02-04 12:44] LABS: Basophils Absolute Auto 0.1 X10*3/uL (0.0-0.2); Basophils Percent Auto 0.6 % (0-2); Eosinophils Absolute Auto 0.3 X10*3/uL (0.0-0.4); Eosinophils Percent Auto 3.2 % (0-4); Hematocrit 35.9 % (37.0-47.0); Hemoglobin 10.7 g/dl (12.0-16.0); Imm Gran Abs Auto 0.05 X10*3/uL (0.00-0.03); Imm Gran Pct Auto 0.6 % (0.0-0.4); Lymphocytes Absolute Auto 1.6 X10*3/uL (1.2-4.9); Lymphocytes Percent Auto 19.3 % (20-40); Mean Corpuscular HGB Conc 29.8 g/dl (31.0-35.0); Mean Corpuscular Hemoglobin 23.4 pg (27.0-33.0); Mean Corpuscular Volume 78.6 fL (80.0-98.0); Mean Platelet Volume 10.5 fL (9.4-12.3); Monocytes Absolute Auto 0.9 X10*3/uL (0.1-1.2); Monocytes Percent Auto 10.8 % (2-11); Neutrophils Absolute Auto 5.4 x10*3/uL (2.0-8.3); Neutrophils Percent Auto 65.5 % (45-73); Platelet Count 405 X10*3/uL (160-400); Red Blood Count 4.57 X10*6/uL (4.20-5.50); White Blood Count 8.2 X10*3/uL (4.8-10.8)
[2024-02-04 13:14] LABS: Anion Gap 12 (12-20); Blood Urea Nitrogen 25 mg/dL (9-16); Calcium 10.1 mg/dL (8.4-10.2); Carbon Dioxide 25 mmol/L (22-29); Chloride 106 mmol/L (96-108); Cholesterol 205 mg/dL (<200); Estimated Glomerular Filt Rate 40; HDL Cholesterol 49 mg/dL (>40); Iron 19 mcg/dL (30-160); LDL Cholesterol Calculated 120 mg/dL (<100); Magnesium 2.1 mg/dL (1.6-2.6); Parathyroid Hormone Intact 93.5 pg/mL (8.7-77.1); Percent Iron Saturation 6 % (15-50); Potassium 4.1 mmol/L (3.3-5.1); Sodium 139 mmol/L (135-145); Total Iron Binding Capacity 344 mcg/dL (228-428); Triglycerides 180 mg/dL (<150); Unsaturated Iron Binding 325 ug/dL; Uric Acid 10.3 mg/dL (2.4-5.7)
[2024-02-04 13:30] LABS: Vitamin D 25-OH Total 31.8 ng/mL (>30)
[2024-02-04 13:52] LABS: Appearance Urine Cloudy; Bacteria Urine 1+ (None Seen); Color Urine Red; Glucose Urine UA Negative (Negative); Hyaline Casts Urine 0-2 /LPF (0-2); Leukocyte Esterase Urine Moderate (2+) (Negative); Nitrite Urine Negative (Negative); RBC Urine >20 /HPF (0-2); Specific Gravity - Urine 1.015 (1.005-1.025); UMIC TRIGGER UA YES; Urine Blood Large (3+) (Negative); Urine Ketones Negative (Negative); Urine Protein 100 (2+) mg/dL (Neg-Trace); WBC Urine 21-50 /HPF (0-5)
[2024-02-04 13:58] LABS: Creatinine Urine 70.88 mg/dL; Total Protein Urine Random 64 mg/dL (<12)
== END 2024-02-04 11:21 | disposition home or self-care (01) ==
LOC: HO.US 11:20
PROVIDERS: Absent Provider Physician Assistant; Visit Provider Internal Medicine Nephrology
DX: N20.0 Calculus of kidney (principal); I12.9 Hypertensive chronic kidney disease with stage 1 through stage 4 chronic kidney disease, or unspecified chronic kidney disease; N18.31 Chronic kidney disease, stage 3a; R82.991 Hypocitraturia; E55.9 Vitamin D deficiency, unspecified
CPT/HCPCS: 36415; 76775; 80051; 80061; 81001; 82306; 82310; 82565; 82570; 83540; 83735; 83970; 84156; 84520; 84550; 85025

== ENCOUNTER 2024-02-28 15:20 | Emergency (ER) | payer OTHER, SELFPAY ==
--- NOTE | ~2024-02-28 | US_ITS ---
EXAMINATION: US RETROPERITONEAL LIMITED (RENAL ONLY) CLINICAL INFORMATION: Right flank pain. COMPARISON: Portions of ultrasound 02/04/24 TECHNIQUE: Real-time imaging of the kidneys. FINDINGS: RIGHT KIDNEY: 9.4 x 3.5 x 3.8 cm (SAG x AP x TRV). The right kidney is dysmorphic. There is cortical thinning. There is some dilation of the collecting system. There are bright reflectors. No suspicious mass. Bright reflectors consistent with the extensive calcifications demonstrated on CT 10/27/20. There is an approximately 1.3 cm shadowing calculus in the lower pole similar to previous CT LEFT KIDNEY: 12.7 x 5.0 x 6.2 cm (SAG x AP x TRV). The left kidney is abnormal. There is dilation of the intrarenal collecting system. There are calcifications. The calcifications are in the distribution typical of medullary sponge kidney. In addition there is an approximately 1.7 cm shadowing calculus in the expected region of the ureteropelvic junction. No perinephric collection. No suspicious solid mass US/US renal BI IMPRESSION: Abnormal exam. Findings consistent with extensive calcifications. Pattern could reflect medullary sponge kidney with additional calculi. There is dilation of the intrarenal collecting system. There appears to be a nonobstructing lower pole right renal calculus. There is a calculus in the region of the left ureteropelvic junction. In the presence of dilated intrarenal collecting systems an obstructing calculus could be present Electronically signed by: Geoff Mcgee MD 02/28/2024 05:21 PM EDT
--- NOTE | ~2024-02-28 | CT_ITS ---
EXAMINATION: CT ABDOMEN AND PELVIS WITHOUT CONTRAST CLINICAL INFORMATION: right flank pain, SHREYA, r/o obstruction. COMPARISON: 10/27/2020 study. TECHNIQUE: Multidetector volumetric imaging was performed from the superior aspect of the liver through the pubic symphysis without contrast per renal stone protocol. Sagittal and coronal reformatted images were obtained on the technologist workstation. This CT examination was performed using dose optimization techniques as appropriate, variously including the following: *Automated exposure control *Adjustment of mA and/or kV according to patient size (this includes techniques or standardized protocols for targeted exams where dose is matched to indication/reason for exam; i.e. extremities or head) *Use of iterative reconstruction technique DLP: 514 mGy-cm. FINDINGS: LUNG BASES: The visualized lung bases are unremarkable. LIVER, GALLBLADDER, BILIARY TREE: The non-contrast liver is normal in size, shape, and attenuation. No focal hepatic lesion or biliary ductal dilatation is present. The gallbladder is unremarkable with no evidence of radiopaque gallstones, gallbladder wall thickening, or obvious pericholecystic inflammatory changes. PANCREAS: Unremarkable. SPLEEN: Unremarkable. ADRENAL GLANDS: Unremarkable. KIDNEYS AND URETERS: There is left-sided hydronephrosis and hydroureter. There are 3 separate calculi seen in the proximal most ureter just distal to the left ureteropelvic junction and these measure up to 0.7 cm in maximal diameter. The left ureter however remains dilated throughout its course distal to this area up to the decompressed bladder with no obvious distal ureteric calculi on the left. 0.3 cm calculi in the proximal left ureter just distal to the expected left ureteral pelvic junction. Distal ureter is decompressed. Innumerable intrarenal calculi seen suggesting prominent underlying medullary calcinosis BLADDER: Decompressed GASTROINTESTINAL TRACT: Scattered colonic diverticulosis but no colonic wall thickening or pericolonic inflammatory change to suggest diverticulitis. Normal-appearing appendix in the right lower quadrant. Visualized small bowel and stomach are unremarkable. ABDOMINAL WALL: Hernia mesh in the right inguinal region LYMPHOVASCULAR STRUCTURES: No lymphadenopathy. The aorta is unremarkable.. PELVIC VISCERA: Lobular contour suggesting a probable fibroid uterus or enlarged multi parous uterus difficult to define further on this noncontrast study OSSEUS STRUCTURES: Unremarkable. CT/CT abdomen pelvis wo IV con IMPRESSION: 1. There is left-sided hydronephrosis and hydroureter. There are 3 separate calculi seen in the proximal left ureter just distal to the left ureteropelvic junction as described above. The left ureter however remains dilated throughout its course up to the decompressed bladder with no obvious distal ureteric calculi. Innumerable intrarenal calculi seen bilaterally suggesting underlying medullary calcinosis. 2. There is a calculi seen in the proximal right ureter just distal to the expected right ureteropelvic junction. I do not appreciate a significant degree of right sided hydronephrosis or hydroureter. 3. Bladder is decompressed with no obvious bladder calculi This critical result was discussed with TARIQ Cruz at 02/28/2024 6:19 PM CDT and it was ascertained that the content and urgency of the report was understood at the time of direct communication. Electronically signed by: Caleb Suárez MD 02/28/2024 07:20 PM EDT Workstation: [id number]
[2024-02-28 15:28] VITALS: BP 151/102; PULSE 79; RESP 18; TEMP 36.4; O2SAT 99; BMI 28.3
--- NOTE | 2024-02-28 15:30 | ED.GENADULT ---
HPI - General Adult General Chief complaint: General Medical Stated complaint: high blood pressure Time Seen by Provider: 02/28/24 17:34 Source: patient Mode of arrival: ambulatory Limitations: no limitations History of Present Illness ED Provider: AGNES BERRIOS PA-C HPI narrative: 48-year-old female with past medical history significant for hypertension on hydrochlorothiazide 12.5, bipolar disorder, medullary kidney disease with kidney stones presents to the ED today for evaluation of elevated blood pressure at work today. Reports taking her blood pressure and it was noted to be 160/121. Reports taking her hydrochlorothiazide this morning. Tells me she has bad kidney stones and feels as though one is stuck on the right side. Endorses 12/18 right flank pain. Pain waxes and wanes in intensity. Denies fever, chills, headache, dizziness, vision changes, chest pain, palpitations, SOB, N/V, abdominal pain, diarrhea, constipation. Related Data Home Medications ?Medication ?Instructions ?Recorded ?Confirmed hydrochlorothiazide 12.5 mg tablet 1 tab PO DAILY 12/17/20 08/29/23 multivitamin 1 tab PO DAILY 12/17/20 12/17/20 ergocalciferol (vitamin D2) 1,250 1,250 mcg PO QWEEK 08/29/23 08/29/23 mcg (50,000 unit) capsule ferrous gluconate 324 mg (38 mg 324 mg PO DAILY 08/29/23 08/29/23 iron) tablet Previous Rx's ?Medication ?Instructions ?Recorded lorazepam 1 mg tablet (Ativan) 1 mg PO BID #60 tabs 12/23/20 acetaminophen 500 mg tablet 1,000 mg (2 x 500 mg) PO Q6H PRN 02/28/22 (Tylenol Extra Strength) pain #60 tabs prednisone 20 mg tablet 40 mg (2 x 20 mg) PO DAILY #10 tabs 02/28/22 oxycodone 5 mg tablet 5 mg PO Q6H PRN pain #14 tabs 05/30/22 cefuroxime axetil 250 mg tablet 250 mg PO BID 7 days #14 tabs 11/08/22 oxycodone-acetaminophen 5 mg-325 1 tab PO Q6H PRN pain #20 tabs 11/08/22 mg tablet (Percocet) prednisone 20 mg tablet 40 mg (2 x 20 mg) PO DAILY #10 tabs 11/08/22 prednisone 20 mg tablet 40 mg (2 x 20 mg) PO DAILY 5 days 02/28/24 #10 tabs Allergies Allergy/AdvReac Type Severity Reaction Status Date / Time No Known Allergies Allergy Unknown NONE Verified 02/28/24 15:33 Review of Systems Review of Systems: Constitutional: No fever, chills, fatigue, night sweats, weight changes ENT/Mouth: No ear pain, hearing loss, nasal congestion, sinus pain, rhinorrhea, sore throat Eyes: No eye pain, swelling, redness, vision changes, discharge Cardio: No chest pain, palpitations, HOBBS, orthopnea, peripheral edema Pulm: No SOB, cough, sputum, wheezing, dyspnea, hemoptysis GI: No nausea, vomiting, hematemesis, abdominal pain, diarrhea, constipation, hematochezia, melena : No irregular bleeding, dysuria, frequency, urgency, hesitancy, hematuria,urinary flow changes, urinary incontinence or retention, +right flank pain MSK: No back pain, neck pain, joint pain, myalgias Skin: No lesions, rashes Neuro: No weakness, numbness, paresthesias, LOC, dizziness, headache Psych: No anxiety/panic, depression, SI/HI, AH/VH All other systems reviewed and are negative. FORMERLY [facility], [facility] Past Medical History Attestation statement: The following information was validated with the patient. Source: old records reviewed and nursing notes reviewed Medical History Anemia HTN (hypertension) Chronic UTI Renal stones Acute cystitis with hematuria Nephroureterolithiasis Social History Social History Household Members: Family Housing: House Do you presently have visiting nurse or other home services: No Alcohol intake: current Alcohol intake frequency: a few times a week Alcohol type: wine Patient Tobacco Use Status: Never used Tobacco Smoked in Last 30 Days: No Use of substances other than those prescribed or required for medical reasons: Yes Substance Use Type: Marijuana Substance Use Frequency: Occasionally Advance Directives: No Advance Directives Information Provided: No Do you have a plan to hurt others: No Plan Patient : No service: No Current occupational status: employed 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 Physical Exam ED Vital Signs: Vital Signs - 24 hr 02/28/24 17:36 02/28/24 19:12 02/28/24 20:20 Temperature 98.1 F 97.7 F 97.7 F Pulse Rate 77 76 76 Respiratory Rate 14 16 16 Blood Pressure 141/72 H 160/90 H 160/90 H Pulse Oximetry 100 98 98 Oxygen Delivery Method Room Air Room Air Room Air BMI result Body Mass Index 28.3 hypertensive to 151/102, vitals otherwise wnl General: Well appearing, in no acute distress. Skin: Warm, dry, intact. No rashes or lesions. Head: Normocephalic, atraumatic. EENT: Hearing is intact b/l. Conjunctiva clear. Sclera is anicteric. PERRLA. EOM intact. Moist mucous membranes.? Neck: Supple without LAD Cardiac: Chest wall symmetric. RRR. Lungs: Normal respiratory effort without accessory muscle use. CTA bilaterally Abdomen: Soft, non-tender, non-distended. No rebound tenderness or guarding. Positive BS x4. no cvat. Back: No midline spinous or paraspinal tenderness. No step off deformity. Ext: Upper and lower extremities atraumatic, without tenderness, deformity, swelling or erythema. Full ROM throughout. Neuro: AOx3. Normal speech. Ambulating with steady gait. Psych: Appropriate mood and affect. Responds appropriately to questions. Course Course Course Narrative: This is a Rapid Medical Examination (RME) performed by Abigail Henning PA-C in triage. Full HPI, ROS, assessment and treatment plan per primary provider in the Main ED. 48 yo female with history of HTN on HCTZ 12.5, bipolar disorder, medually kidney disease with kidney stones, who presents to the ER for evaluation of elevated BP at work. BP 160/121. she took her HCTZ this morning. she has been kidney stones today and feels like one is suck on the right. BP 151/102 here. pain in the right flank is 7/10, improved from 10/10 earlier when her BP was high. no chest pain, headache or vision changes. Plan: labs, UA, renal U/S Reevaluation(s) Reevaluation #1: 1750 -- CBC without leukocytosis or left shift. Chronic microcytic anemia likely secondary to medullary kidney disease. Stable when compared to priors and above transfusion threshold. Chemistry showing hypokalemia to 2.9, again likely secondary to chronic kidney diseae > repletion ordered. Magnesium WNL. SHREYA with BUN 22 and creatinine 1.64. Normal liver function. Urinalysis pending. Ultrasound of bilateral kidneys showing findings consistent with extensive calcifications reflecting medullary sponge kidney with additional calculi. There is dilation of the intrarenal collecting system with nonobstructing lower pole right renal calculi along with calculus in the region of the left ureteropelvic junction. Her radiologist, in the presence of dilated intrarenal collecting systems and obstructing calculus can not be ruled out. > discussed workup results with patient. I expressed my concern for obstructing stone and the need for CT abdomen/pelvis. Patient is agreeable with this. > I also discussed low potassium. She endorses history of low potassium and is supposed to be taking potassium supplements at home however has not been doing this. She is agreeable to PO repletion however is declining IV fluids or IV potassium repletion at this time. > BP improved (141/72). will continue to monitor. 1999 -- UA with blood. no infection. CT scan showing left-sided hydronephrosis and hydroureter with 3 separate calculi seen in the proximal left ureter just distal to left ureteropelvic junction. Left ureter remains dilated throughout its course of to the decompressed bladder with no obvious distal ureteric calculi. There are innumerable intrarenal calculi seen bilaterally suggesting underlying medullary calcinosis (consistent with patient's history). There is a calculi seen in the proximal right ureter just distal to the expected right ureteropelvic junction without evidence of right-sided hydro nephrosis or hydroureter. decompressed bladder. > patient continues to decline IV intervention. another 20 mcg K+ PO ordered for a total of 60 mcg PO in ED. > I reached out to urologist Dr. Malloy regarding work up results. She states that from a urology stand point, patient can be managed out patient. patient tells me she has a urology appointment this week and would like to be discharged home. will send her home with prednisone for symptoms. advised to continue taking her oxycodone at home for pain. Patient has remained stable throughout ED visit today. Discussed worrisome signs and symptoms and when to return to the ED. All questions answered at this time. Patient is agreeable with disposition and stable for discharge. Medications Administered Discontinued Medications Generic Name Dose Route Start Last Admin Trade Name Freq PRN Reason Stop Dose Admin Potassium Chloride 10 meq in 100 mls @ 100 mls/hr 02/28/24 18:00 02/28/24 19:15 Potassium Chloride/H20 IV 02/28/24 19:59 Not Given Q1H MERCED Ketorolac Tromethamine 15 mg 02/28/24 17:40 02/28/24 18:16 Ketorolac Tromethamine 15 Mg/Ml Vial IVPUSH 02/28/24 17:41 Not Given ONCE ONE Lorazepam 0.5 mg 02/28/24 18:03 02/28/24 18:16 Lorazepam 0.5 Mg Tablet PO 02/28/24 18:04 Not Given ONCE ONE Lorazepam 0.5 mg 02/28/24 18:30 02/28/24 18:21 Lorazepam 0.5 Mg Tablet PO 02/28/24 18:31 0.5 mg ONCE ONE Administration Potassium Chloride 40 meq 02/28/24 17:59 02/28/24 18:15 Potassium Chloride Packet 20 Meq Packet PO 02/28/24 18:00 40 meq ONCE ONE Administration Potassium Chloride 20 meq 02/28/24 19:44 02/28/24 19:53 Potassium Chloride Packet 20 Meq Packet PO 02/28/24 19:45 20 meq ONCE ONE Administration Medical Decision Making Medical Decision Making MDM Narrative: 48-year-old female with past medical history significant for hypertension on hydrochlorothiazide 12.5, bipolar disorder, medullary kidney disease with kidney stones presents to the ED today for evaluation of elevated blood pressure at work today. Patient hypertensive to 151/102, improved to 160/90. abd soft, ND/NT, no rebound or guarding. no cvat b/l. Differential diagnosis includes anemia, electrolyte abnormality, dehydration, renal colic, nephrolithiasis, pyelonephritis, hydronephritis, urinary tract infection, hypertensive urgency vs emergency. Labs, UA ordered in triage. Plan to add on CT a/p to assess for renal stone/ obstruction. 1L IVF ordered. Toradol ordered for pain control. Differential Diagnosis Differential Diagnoses: The differential diagnosis associated with the presentation includes As above Admission/Observation Consideration of admission/observation: Escalation of care including admission/observation considered admission considered on presentation Consult Healthcare Provider Management of the patient was discussed with: Station Captain (urologist dr. malloy) Lab Data MDM Lab Attestation statement: I reviewed the patient's lab results. As above 02/28/24 15:42 02/28/24 15:42 Labs: Lab Results 02/28/24 02/28/24 Range/Units 15:42 17:41 WBC 10.2 (4.8-10.8) X10*3/uL RBC 4.31 (4.20-5.50) X10*6/uL Hgb 10.0 L (12.0-16.0) g/dl Hct 33.4 L (37.0-47.0) % MCV 77.5 L (80.0-98.0) fL MCH 23.2 L (27.0-33.0) pg MCHC 29.9 L (31.0-35.0) g/dl RDW 18.4 H (11.0-16.0) % Plt Count 387 (160-400) X10*3/uL MPV 10.6 (9.4-12.3) fL Immature Gran % (Auto) 0.4 (0.0-0.4) % Neut % (Auto) 73.4 H (45-73) % Lymph % (Auto) 15.1 L (20-40) % Vigo % (Auto) 9.6 (2-11) % Eos % (Auto) 0.9 (0-4) % Baso % (Auto) 0.6 (0-2) % Lymph # (Auto) 1.5 (1.2-4.9) X10*3/uL [place]igo # (Auto) 1.0 (0.1-1.2) X10*3/uL Eos # (Auto) 0.1 (0.0-0.4) X10*3/uL Baso # (Auto) 0.1 (0.0-0.2) X10*3/uL Abs Immat Gran (auto) 0.04 H (0.00-0.03) X10*3/uL Absolute Neuts (auto) 7.5 (2.0-8.3) x10*3/uL Absolute Nucleated RBC 0.000 (0.0-0.012) X10*3/uL Nucleated RBC % (auto) 0.0 (0.0-0.2) /100WBC Sodium 138 (135-145) mmol/L Potassium 2.9 L* D (3.3-5.1) mmol/L Chloride 105 (96-108) mmol/L Carbon Dioxide 23 (22-29) mmol/L Anion Gap 13 (12-20) BUN 22 H (9-16) mg/dL Creatinine 1.64 H (0.5-1.4) mg/dL Estim Creat Clear Calc 36.2 Estimated GFR 34 Random Glucose 108 (60-115) mg/dL Calcium 10.0 (8.4-10.2) mg/dL Magnesium 1.9 (1.6-2.6) mg/dL Total Bilirubin 0.2 (0.0-1.0) mg/dL Direct Bilirubin < 0.2 (0.0-0.5) mg/dL AST 14 (5-31) U/L ALT 9 (0-31) U/L Alkaline Phosphatase 69 (39-117) U/L Total Protein 7.3 (6.5-8.0) g/dL Albumin 3.9 (3.5-5.0) g/dL Urine Color Yellow Urine Appearance Clear Urine pH 7.0 (5.0-9.0) Ur Specific [place] 1.010 (1.005-1.025) Urine Protein Trace (Neg-Trace) mg/dL Urine Glucose (UA) Negative (Negative) mg/dL Urine Ketones Negative (Negative) mg/dL Urine Blood Large (3+) H (Negative) Urine Nitrite Negative (Negative) Ur Leukocyte Esterase Moderate (2+) H (Negative) Urine RBC 11-20 H (0-2) /HPF Urine WBC 11-20 H (0-5) /HPF Ur Squamous Epith Cells 0-2 (0-2) /HPF Urine Bacteria None Seen (None Seen) Hyaline Casts 0-2 (0-2) /LPF Independent Interpretation I performed an independent interpretation of an: Ultrasound and CT Scan Interpretation: Ultrasound bilateral kidneys showing b/l renal calcifications, agree with radiologist's interpretation. CT abdomen/pelvis with bilateral ureteral calculi, agree with radiologist's interpretation. Radiology Impression Discussion of test interpretation with radiology: I have reviewed the radiologist's reading. Radiologist Impression: EXAMINATION: US RETROPERITONEAL LIMITED (RENAL ONLY) CLINICAL INFORMATION: Right flank pain. COMPARISON: Portions of ultrasound 02/04/24 TECHNIQUE: Real-time imaging of the kidneys. FINDINGS: RIGHT KIDNEY: 9.4 x 3.5 x 3.8 cm (SAG x AP x TRV). The right kidney is dysmorphic. There is cortical thinning. There is some dilation of the collecting system. There are bright reflectors. No suspicious mass. Bright reflectors consistent with the extensive calcifications demonstrated on CT 10/27/20. There is an approximately 1.3 cm shadowing calculus in the lower pole similar to previous CT LEFT KIDNEY: 12.7 x 5.0 x 6.2 cm (SAG x AP x TRV). The left kidney is abnormal. There is dilation of the intrarenal collecting system. There are calcifications. The calcifications are in the distribution typical of medullary sponge kidney. In addition there is an approximately 1.7 cm shadowing calculus in the expected region of the ureteropelvic junction. No perinephric collection. No suspicious solid mass US/US renal BI IMPRESSION: Abnormal exam. Findings consistent with extensive calcifications. Pattern could reflect medullary sponge kidney with additional calculi. There is dilation of the intrarenal collecting system. There appears to be a nonobstructing lower pole right renal calculus. There is a calculus in the region of the left ureteropelvic junction. In the presence of dilated intrarenal collecting systems an obstructing calculus could be present Electronically signed by: Geoff Mcgee MD 02/28/2024 05:21 PM EDT EXAMINATION: CT ABDOMEN AND PELVIS WITHOUT CONTRAST CLINICAL INFORMATION: right flank pain, SHREYA, r/o obstruction. COMPARISON: 10/27/2020 study. TECHNIQUE: Multidetector volumetric imaging was performed from the superior aspect of the liver through the pubic symphysis without contrast per renal stone protocol. Sagittal and coronal reformatted images were obtained on the technologist workstation. This CT examination was performed using dose optimization techniques as appropriate, variously including the following: *Automated exposure control *Adjustment of mA and/or kV according to patient size (this includes techniques or standardized protocols for targeted exams where dose is matched to indication/reason for exam; i.e. extremities or head) *Use of iterative reconstruction technique DLP: 514 mGy-cm. FINDINGS: LUNG BASES: The visualized lung bases are unremarkable. LIVER, GALLBLADDER, BILIARY TREE: The non-contrast liver is normal in size, shape, and attenuation. No focal hepatic lesion or biliary ductal dilatation is present. The gallbladder is unremarkable with no evidence of radiopaque gallstones, gallbladder wall thickening, or obvious pericholecystic inflammatory changes. PANCREAS: Unremarkable. SPLEEN: Unremarkable. ADRENAL GLANDS: Unremarkable. KIDNEYS AND URETERS: There is left-sided hydronephrosis and hydroureter. There are 3 separate calculi seen in the proximal most ureter just distal to the left ureteropelvic junction and these measure up to 0.7 cm in maximal diameter. The left ureter however remains dilated throughout its course distal to this area up to the decompressed bladder with no obvious distal ureteric calculi on the left. 0.3 cm calculi in the proximal left ureter just distal to the expected left ureteral pelvic junction. Distal ureter is decompressed. Innumerable intrarenal calculi seen suggesting prominent underlying medullary calcinosis BLADDER: Decompressed GASTROINTESTINAL TRACT: Scattered colonic diverticulosis but no colonic wall thickening or pericolonic inflammatory change to suggest diverticulitis. Normal-appearing appendix in the right lower quadrant. Visualized small bowel and stomach are unremarkable. ABDOMINAL WALL: Hernia mesh in the right inguinal region LYMPHOVASCULAR STRUCTURES: No lymphadenopathy. The aorta is unremarkable.. PELVIC VISCERA: Lobular contour suggesting a probable fibroid uterus or enlarged multi parous uterus difficult to define further on this noncontrast study OSSEUS STRUCTURES: Unremarkable. CT/CT abdomen pelvis wo IV con IMPRESSION: 1. There is left-sided hydronephrosis and hydroureter. There are 3 separate calculi seen in the proximal left ureter just distal to the left ureteropelvic junction as described above. The left ureter however remains dilated throughout its course up to the decompressed bladder with no obvious distal ureteric calculi. Innumerable intrarenal calculi seen bilaterally suggesting underlying medullary calcinosis. 2. There is a calculi seen in the proximal right ureter just distal to the expected right ureteropelvic junction. I do not appreciate a significant degree of right sided hydronephrosis or hydroureter. 3. Bladder is decompressed with no obvious bladder calculi This critical result was discussed with TARIQ Cruz at 02/28/2024 6:19 PM CDT and it was ascertained that the content and urgency of the report was understood at the time of direct communication. Electronically signed by: Caleb Suárez MD 02/28/2024 07:20 PM EDT RP External Record Review External record reviewed: Inpatient record, Office record, Outpatient record, Prior outpatient labs, Prior outpatient radiology, Primary care record and Outside ED record Prescription Management I considered prescription management with: Pain Medication and Other (prednisone) Chronic Conditions Patient?s care impacted by: Other (Medullary kidney disease) Social Determinants Patient?s care significantly limited by Social Determinants of Health including: Other Social Determinant of Health Critical Care Time Critical Care Time Critical Care Time: Yes Total Critical Care Time: 32 Attestation: Critical care time in the amount of 32 minutes has been provided to the patient in terms of direct patient care, frequent reevaluation, consultation with urology, review and interpretation of medical data and results, and management of potentially life-threatening conditions. This is all outside of any medical procedures. Discharge Plan Discharge Clinical Impression: Medullary sponge kidney, Bilateral ureteral calculi, Hydronephrosis of left kidney, Hydroureter on left, Hypokalemia Patient Disposition: Home, Self-Care Instructions: Hypokalemia (ED), Hydronephrosis (ED) Additional Instructions: You were evaluated in the ED today for elevated blood pressure and right flank pain. Your blood pressure normalized in the emergency department without intervention. Your potassium was found to be low. You were given potassium in the ED. As discussed, please ensure that you are taking your potassium supplements as prescribed at home. The results from your kidney ultrasound and CT scan are provided below. Continue taking your home oxycodone as needed for pain. Prednisone is s steroid that has been sent to your pharmacy. Take this as prescribed for the next 5 days. Keep your appointment with urologist, Dr. Estevez next week. Follow up with PCP as needed. Return with new or worsening symptoms. In the case of an emergency call 911. US renal BI IMPRESSION: Abnormal exam. Findings consistent with extensive calcifications. Pattern could reflect medullary sponge kidney with additional calculi. There is dilation of the intrarenal collecting system. There appears to be a nonobstructing lower pole right renal calculus. There is a calculus in the region of the left ureteropelvic junction. In the presence of dilated intrarenal collecting systems an obstructing calculus could be present CT abdomen pelvis wo IV con IMPRESSION: 1. There is left-sided hydronephrosis and hydroureter. There are 3 separate calculi seen in the proximal left ureter just distal to the left ureteropelvic junction as described above. The left ureter however remains dilated throughout its course up to the decompressed bladder with no obvious distal ureteric calculi. Innumerable intrarenal calculi seen bilaterally suggesting underlying medullary calcinosis. 2. There is a calculi seen in the proximal right ureter just distal to the expected right ureteropelvic junction. I do not appreciate a significant degree of right sided hydronephrosis or hydroureter. 3. Bladder is decompressed with no obvious bladder calculi Prescriptions: New prednisone 20 mg tablet 40 mg PO DAILY 5 Days Qty: 10 0RF No Action multivitamin Tablet 1 tab PO DAILY hydrochlorothiazide 12.5 mg tablet 1 tab PO DAILY lorazepam [Ativan] 1 mg tablet 1 mg PO BID Qty: 60 0RF prednisone 20 mg tablet 40 mg PO DAILY Qty: 10 0RF acetaminophen [Tylenol Extra Strength] 500 mg tablet 1,000 mg PO Q6H PRN (Reason: pain) Qty: 60 0RF oxycodone 5 mg tablet 5 mg PO Q6H PRN (Reason: pain) Qty: 14 0RF Rx Instructions: Partial Fill upon patient request. cefuroxime axetil 250 mg tablet 250 mg PO BID 7 Days Qty: 14 0RF prednisone 20 mg tablet 40 mg PO DAILY Qty: 10 0RF oxycodone-acetaminophen [Percocet] 5-325 mg tablet 1 tab PO Q6H PRN (Reason: pain) Qty: 20 0RF Rx Instructions: Partial Fill upon patient request. ergocalciferol (vitamin D2) 1,250 mcg (50,000 unit) capsule 1,250 mcg PO QWEEK ferrous gluconate 324 mg (38 mg iron) tablet 324 mg PO DAILY Stand Alone Forms: Work/School Release Interventions: ED Discharge Assessment Last Done: 02/28/24 20:20 Discharge Date/Time: 02/28/24 20:20 Print Language: Thai
[2024-02-28 15:46] LABS: MANUAL DIFF FLAG NO
[2024-02-28 15:54] LABS: Basophils Absolute Auto 0.1 X10*3/uL (0.0-0.2); Basophils Percent Auto 0.6 % (0-2); Eosinophils Absolute Auto 0.1 X10*3/uL (0.0-0.4); Eosinophils Percent Auto 0.9 % (0-4); Hematocrit 33.4 % (37.0-47.0); Imm Gran Abs Auto 0.04 X10*3/uL (0.00-0.03); Imm Gran Pct Auto 0.4 % (0.0-0.4); Lymphocytes Absolute Auto 1.5 X10*3/uL (1.2-4.9); Lymphocytes Percent Auto 15.1 % (20-40); Mean Corpuscular HGB Conc 29.9 g/dl (31.0-35.0); Mean Corpuscular Hemoglobin 23.2 pg (27.0-33.0); Mean Corpuscular Volume 77.5 fL (80.0-98.0); Mean Platelet Volume 10.6 fL (9.4-12.3); Monocytes Percent Auto 9.6 % (2-11); Neutrophils Absolute Auto 7.5 x10*3/uL (2.0-8.3); Neutrophils Percent Auto 73.4 % (45-73); Platelet Count 387 X10*3/uL (160-400); Red Blood Count 4.31 X10*6/uL (4.20-5.50); Red Cell Distribution Width 18.4 % (11.0-16.0); White Blood Count 10.2 X10*3/uL (4.8-10.8)
[2024-02-28 16:20] LABS: Alanine Aminotransferase 9 U/L (0-31); Albumin Level 3.9 g/dL (3.5-5.0); Alkaline Phosphatase 69 U/L (39-117); Anion Gap 13 (12-20); Aspartate Amino Transferase 14 U/L (5-31); Bilirubin Direct < 0.2 mg/dL (0.0-0.5); Bilirubin Total 0.2 mg/dL (0.0-1.0); Blood Urea Nitrogen 22 mg/dL (9-16); Carbon Dioxide 23 mmol/L (22-29); Chloride 105 mmol/L (96-108); Creatinine Clr Calc Pharmacy 36.2; Estimated Glomerular Filt Rate 34; Glucose Random 108 mg/dL (60-115); Magnesium 1.9 mg/dL (1.6-2.6); Potassium 2.9 mmol/L (3.3-5.1); Sodium 138 mmol/L (135-145); Total Protein 7.3 g/dL (6.5-8.0)
[2024-02-28 17:36] VITALS: BP 141/72; PULSE 77; RESP 14; TEMP 36.7; O2SAT 100
--- NOTE | 2024-02-28 17:38 | PC.NURSE ---
patient is refusing to change into a gown and refusing an IV at this time. wants to wait and speak to the doctor, she only came to the ED as her BP is high. history of kidney stones and felt she passed 2 earlier at work
[2024-02-28 17:46] LABS: Appearance Urine Clear; Color Urine Yellow; Glucose Urine UA Negative (Negative); Leukocyte Esterase Urine Moderate (2+) (Negative); Nitrite Urine Negative (Negative); UMIC TRIGGER UACC YES; Urine Blood Large (3+) (Negative); Urine Ketones Negative (Negative); Urine Protein Trace mg/dL (Neg-Trace)
--- NOTE | 2024-02-28 18:08 | PC.NURSE ---
patient still does not want an IV or change into a gown, wants to wait for the CT to come back. She knows her diagnosis of medullary sponge kidney disease and she deals with this daily and knows what to do at home, she has no one to take car of her son who is on his way home. Provider notified.
[2024-02-28] MEDS: Potassium Chloride Packet 20 MEQ PACKET 40 MEQ PO (18:15)
[2024-02-28] MEDS: LORazepam 0.5 MG TABLET PO (18:21)
[2024-02-28 19:12] VITALS: BP 160/90; PULSE 76; RESP 16; TEMP 36.5; O2SAT 98
--- NOTE | 2024-02-28 19:18 | PC.NURSE ---
patient a&ox3, vss, pt refusing iv for K, float nurse medicated pt with oral meds per order. Urine obtained and was sent to lab, pt awaiting CT scan results and stating she has dealt with CKD and low potassium all her life and will manage the symptoms at home. pt has c/o pain but stated she does not want pain medications here in the hospital as she'd rather take medications after she got home. call antonio is within reach, will continue to monitor
[2024-02-28] MEDS: Potassium Chloride Packet 20 MEQ PACKET PO (19:53)
--- NOTE | 2024-02-28 19:54 | PC.NURSE ---
pt medicated per order
[2024-02-28 20:16] LABS: Bacteria Urine None Seen (None Seen); Hyaline Casts Urine 0-2 /LPF (0-2); Squamous Epithelial Cell Urine 0-2 /HPF (0-2); UACC Culture Trigger YES
[2024-02-28 20:20] VITALS: BP 160/90; PULSE 76; RESP 16; TEMP 36.5; O2SAT 98
== END 2024-02-28 20:20 | disposition home or self-care (01) ==
PROVIDERS: Physician Assistant; Emergency Provider Emergency Medicine; PCP Internal Medicine
DX: N13.2 Hydronephrosis with renal and ureteral calculous obstruction (principal); Q61.5 Medullary cystic kidney; E87.6 Hypokalemia; I11.0 Hypertensive heart disease with heart failure; Z87.442 Personal history of urinary calculi
CPT/HCPCS: 36415; 74176; 76775; 80048; 80076; 81001; 81003; 83735; 85025; 87086; 99284

== ENCOUNTER 2024-03-23 10:52 | Inpatient (IN) | payer OTHER, SELFPAY ==
--- NOTE | ~2024-03-23 | CT_ITS ---
EXAMINATION: CT ABDOMEN PELVIS WITHOUT IV CONTRAST CLINICAL INFORMATION: left flank pain, hx stones COMPARISON: Prior CT February 28, 2024 TECHNIQUE: Multidetector volumetric imaging was performed from the superior aspect of the liver through the pubic symphysis , noncontrast CT Sagittal and coronal reformatted images were obtained on the technologist's workstation. This CT examination was performed using dose optimization techniques as appropriate, variously including the following: *Automated exposure control *Adjustment of mA and/or kV according to patient size (this includes techniques or standardized protocols for targeted exams where dose is matched to indication/reason for exam; i.e. extremities or head) *Use of iterative reconstruction technique DLP: 510 mGy-cm FINDINGS: LOWER THORAX: Included lung bases are clear. HEPATOBILIARY: No focal hepatic lesions. No biliary ductal dilatation. GALLBLADDER: Gallbladder unremarkable. SPLEEN: Spleen is normal in size. PANCREAS: No focal mass or ductal dilatation. STOMACH AND GASTROINTESTINAL TRACT: Stomach is grossly unremarkable. There is heavy diverticulosis of the sigmoid colon without CT evidence of acute diverticulitis. No CT evidence of appendicitis. ADRENALS: No adrenal nodules. 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 Bilateral dense calcification of the renal collecting system medullary sponge kidney nephrocalcinosis, atrophic right kidney chronic unchanged. URINARY BLADDER: Partially decompressed. PELVIC VISCERA: Bulky uterus, cannot rule out uterine mass fibroids. PERITONEUM: No free air or fluid. LYMPH NODES: No lymphadenopathy. VASCULAR:Abdominal aorta normal in size, no aneurysm found. BONES, ABDOMINAL WALL AND SOFT TISSUES: Surgical clip right anterior lower abdominal hernia repair. Otherwise skeletal structures are stable unchanged. CT/CT abdomen pelvis wo IV con IMPRESSION: 1. 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 2. Bilateral dense calcifications of the renal collecting system suggesting medullary sponge kidney nephrocalcinosis. 3. Atrophic right kidney. 4. Heavy diverticulosis of the sigmoid colon without CT evidence of acute diverticulitis. 5. Bulky uterus, cannot rule out uterine mass fibroids. Consider correlation with follow-up pelvic ultrasound. Electronically signed by: Siobhan Muñoz MD 03/23/2024 01:49 PM EDT RP
[2024-03-23 11:02] VITALS: BP 168/92; PULSE 71; RESP 18; TEMP 36.9; O2SAT 99; BMI 28.5
--- NOTE | 2024-03-23 11:12 | ED.GENADULT ---
HPI - General Adult General Chief complaint: Abdominal Pain Stated complaint: l flank pain Time Seen by Provider: 03/23/24 11:12 Source: patient Mode of arrival: ambulatory Limitations: no limitations History of Present Illness ED Provider: Ankit FIERRO narrative: Patient is a 48-year-old female with history of renal stones, meduallary kidney disease, HTN, bipolar disorder presenting to the ED with complaint of severe left flank pain since last night. Also complains of nausea without vomiting. Unsure of hematuria as she is currently menstruating. Reports pain feels similar to prior episodes of renal colic. Reports some urinary urgency as well. Denies fevers. MD complaint: left flank pain Onset (ago): hour(s) Location: left Severity: severe and similar to prior episodes Quality: sharp Pain Consistency: constant Associated symptoms: nausea/vomiting Related Data Home Medications ?Medication ?Instructions ?Recorded ?Confirmed hydrochlorothiazide 12.5 mg tablet 1 tab PO DAILY 12/17/20 08/29/23 multivitamin 1 tab PO DAILY 12/17/20 12/17/20 ergocalciferol (vitamin D2) 1,250 1,250 mcg PO QWEEK 08/29/23 08/29/23 mcg (50,000 unit) capsule ferrous gluconate 324 mg (38 mg 324 mg PO DAILY 08/29/23 08/29/23 iron) tablet Previous Rx's ?Medication ?Instructions ?Recorded lorazepam 1 mg tablet (Ativan) 1 mg PO BID #60 tabs 12/23/20 acetaminophen 500 mg tablet 1,000 mg (2 x 500 mg) PO Q6H PRN 02/28/22 (Tylenol Extra Strength) pain #60 tabs prednisone 20 mg tablet 40 mg (2 x 20 mg) PO DAILY #10 tabs 02/28/22 oxycodone 5 mg tablet 5 mg PO Q6H PRN pain #14 tabs 05/30/22 cefuroxime axetil 250 mg tablet 250 mg PO BID 7 days #14 tabs 11/08/22 oxycodone-acetaminophen 5 mg-325 1 tab PO Q6H PRN pain #20 tabs 11/08/22 mg tablet (Percocet) prednisone 20 mg tablet 40 mg (2 x 20 mg) PO DAILY #10 tabs 11/08/22 prednisone 20 mg tablet 40 mg (2 x 20 mg) PO DAILY 5 days 02/28/24 #10 tabs Allergies Allergy/AdvReac Type Severity Reaction Status Date / Time No Known Allergies Allergy Unknown NONE Verified 03/23/24 11:03 Review of Systems Review of Systems: As per HPI. Yes all other systems are reviewed and are negative Constitutional: Constitutional: Reports as per HPI [facility] Past Medical History Medical History Anemia HTN (hypertension) Chronic UTI Renal stones Acute cystitis with hematuria Nephroureterolithiasis Social History Social History Household Members: Family Housing: House Do you presently have visiting nurse or other home services: No Alcohol intake: current Alcohol intake frequency: a few times a week Alcohol type: wine Patient Tobacco Use Status: Never used Tobacco Substance Use Type: Marijuana Advance Directives: No Advance Directives Information Provided: No service: No Current occupational status: employed 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 Physical Exam ED Vital Signs: Vital Signs - 24 hr 03/23/24 11:02 Temperature 98.4 F Pulse Rate 71 Respiratory Rate 18 Blood Pressure 168/92 H Pulse Oximetry 99 Oxygen Delivery Method Room Air BMI result Body Mass Index 28.5 Vital signs have been reviewed and appear to be correct. Blood pressure elevated. Heart rate normal. Respiratory rate normal. Temperature normal. Oxygen saturation normal. Const General: cooperative, healthy appearing and no acute distress; No comfortable Orientation/consciousness: oriented to person, oriented to place, oriented to time and patient oriented x3 Limitations: no limitations [facility] Head: Yes normocephalic and Yes atraumatic Ears: external ears normal General nose exam: Normal external nose present Face and sinus: Yes face symmetric Mouth: oropharynx normal and moist mucous membranes Throat: Yes uvula midline Eyes Pupils: Equal, round and reactive pupils present Neck Neck: Yes normal visual inspection and Yes supple Resp Effort & Inspection: normal respiratory effort and able to speak in complete sentences Auscultation: clear to auscultation bilaterally Cardio Rate: regular rate Rhythm: regular rhythm Heart sounds: S1 normal heart sound present and S2 normal heart sound present GI Palpation (GI): Soft to palpation and nontender Auscultation: normoactive bowel sounds General: Yes CVA tenderness on the left Back/Spine/Pelvis Back: CVA tenderness Skin General skin exam: elasticity normal and turgor normal Neuro General: oriented to person, oriented to place, oriented to time, patient oriented x3, moves all extremities, no focal motor deficits and CN's II-XI intact bilaterally Cranial nerves: Yes Equal, round and reactive pupils present Cognition (Neuro): normal cognition Extrem General: Yes full ROM, Yes no pedal edema and Yes no calf tenderness Psych Mental Status: mental status grossly normal Affect: normal affect Thought process: Normal thought process present Medications Administered Discontinued Medications Generic Name Dose Route Start Last Admin Trade Name Freq PRN Reason Stop Dose Admin Ceftriaxone Sodium 1 gm 03/23/24 14:01 03/23/24 14:44 Ceftriaxone Sodium 1 Gm Vial IVPUSH 03/23/24 14:02 1 gm ONCE ONE Administration Sodium Chloride 1,000 mls @ 999 mls/hr 03/23/24 13:30 03/23/24 13:41 Ns IV 03/23/24 14:30 999 mls/hr .Q1H1M MERCED Administration Lorazepam 0.5 mg 03/23/24 11:17 03/23/24 11:24 Lorazepam 0.5 Mg Tablet PO 03/23/24 11:18 0.5 mg ONCE ONE Administration Morphine Sulfate 4 mg 03/23/24 11:14 03/23/24 11:36 Morphine Sulfate 4 Mg/Ml Cartridge IVPUSH 03/23/24 11:15 4 mg ONCE ONE Administration Protocol Morphine Sulfate 4 mg 03/23/24 13:16 03/23/24 13:44 Morphine Sulfate 4 Mg/Ml Cartridge IVPUSH 03/23/24 13:17 4 mg ONCE ONE Administration Protocol Ondansetron HCl 4 mg 03/23/24 11:14 03/23/24 11:36 Ondansetron Hcl 4 Mg/2 Ml Vial IVPUSH 03/23/24 11:15 4 mg ONCE ONE Administration Medical Decision Making Medical Decision Making MDM Narrative: Patient is a 48-year-old female with history of renal stones, medullary kidney disease, HTN, bipolar disorder presenting to the ED with complaint of severe left flank pain since last night. On exam patient is awake, A+Ox3, BP elevated, VS otherwise WNL, afebrile, normal neurological exam without focal deficits, physical exam findings as above. Given reported symptoms and physical exam findings, initial differential includes renal colic, ureteral calculi, UTI/pyelonephritis. Labs notable for leukocytosis with left shift, SHREYA. CT notable for 6mm obstructing left ureteral calculi with hydronephrosis. My interpretation is in agreement with the radiologist's interpretation. Patient complains of ongoing pain after first dose of IV morphine, second dose ordered. Case discussed with Dr. Santos who states patient will likely go to OR tomorrow. Case discussed with Dr. Saleem who accepts admission to medicine. IV ceftriaxone ordered. Patient in agreement with plan. Differential Diagnosis Differential Diagnoses: The differential diagnosis associated with the presentation includes As per [facility] Admission/Observation Consideration of admission/observation: Escalation of care including admission/observation considered Consult Healthcare Provider Management of the patient was discussed with: Hospitalist (Dr. Saleem) and Electrical Engineering Manager (Dr. Santos) Lab Data [facility] Lab Attestation statement: I reviewed the patient's lab results. As per [facility] 03/23/24 11:32 03/23/24 11:32 Labs: Lab Results 03/23/24 Range/Units 11:32 WBC 16.1 H (4.8-10.8) X10*3/uL RBC 4.19 L (4.20-5.50) X10*6/uL Hgb 9.7 L (12.0-16.0) g/dl Hct 32.3 L (37.0-47.0) % MCV 77.1 L (80.0-98.0) fL MCH 23.2 L (27.0-33.0) pg MCHC 30.0 L (31.0-35.0) g/dl RDW 18.6 H (11.0-16.0) % Plt Count 372 (160-400) X10*3/uL MPV 10.3 (9.4-12.3) fL Immature Gran % (Auto) 0.4 (0.0-0.4) % Neut % (Auto) 93.0 H (45-73) % Lymph % (Auto) 3.2 L (20-40) % [place] % (Auto) 3.1 (2-11) % Eos % (Auto) 0.0 (0-4) % Baso % (Auto) 0.3 (0-2) % Lymph # (Auto) 0.5 L (1.2-4.9) X10*3/uL [place] # (Auto) 0.5 (0.1-1.2) X10*3/uL Eos # (Auto) 0.0 (0.0-0.4) X10*3/uL Baso # (Auto) 0.1 (0.0-0.2) X10*3/uL Abs Immat Gran (auto) 0.07 H (0.00-0.03) X10*3/uL Absolute Neuts (auto) 15.0 H (2.0-8.3) x10*3/uL Absolute Nucleated RBC 0.000 (0.0-0.012) X10*3/uL Nucleated RBC % (auto) 0.0 (0.0-0.2) /100WBC Smear Tech's Comments VERIFIED Sodium 138 (135-145) mmol/L Potassium 4.2 D (3.3-5.1) mmol/L Chloride 104 (96-108) mmol/L Carbon Dioxide 20 L (22-29) mmol/L Anion Gap 18 (12-20) BUN 31 H (9-16) mg/dL Creatinine 2.96 H (0.5-1.4) mg/dL Estim Creat Clear Calc 21.8 Estimated GFR 17 Random Glucose 140 H (60-115) mg/dL Calcium 10.0 (8.4-10.2) mg/dL Total Bilirubin 0.3 (0.0-1.0) mg/dL AST 17 (5-31) U/L ALT 13 (0-31) U/L Alkaline Phosphatase 75 (39-117) U/L Total Protein 7.0 (6.5-8.0) g/dL Albumin 3.9 (3.5-5.0) g/dL Urine Color RED Urine Appearance Turbid Urine pH 7.0 (5.0-9.0) Ur Specific [place] 1.015 (1.005-1.025) Urine Protein 300 (3+) H (Neg-Trace) mg/dL Urine Glucose (UA) Negative (Negative) mg/dL Urine Ketones Negative (Negative) mg/dL Urine Blood Large (3+) H (Negative) Urine Nitrite Negative (Negative) Ur Leukocyte Esterase Moderate (2+) H (Negative) Urine RBC >20 H (0-2) /HPF Urine WBC 11-20 (0-5) /HPF Ur Squamous Epith Cells 0-2 (0-2) /HPF Urine Bacteria Trace (None Seen) Hyaline Casts 0-2 (0-2) /LPF Urine Test NEGATIVE (NEGATIVE) Independent Interpretation I performed an independent interpretation of an: CT Scan Interpretation: 6mm obstructing stone left ureter with hydronephrosis Radiology Impression Discussion of test interpretation with radiology: I have reviewed the radiologist's reading. Radiologist Impression: CT/CT abdomen pelvis wo IV con IMPRESSION: 1. 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 2. Bilateral dense calcifications of the renal collecting system suggesting medullary sponge kidney nephrocalcinosis. 3. Atrophic right kidney. 4. Heavy diverticulosis of the sigmoid colon without CT evidence of acute diverticulitis. 5. Bulky uterus, cannot rule out uterine mass fibroids. Consider correlation with follow-up pelvic ultrasound. External Record Review External record reviewed: Inpatient record, Office record and Outpatient record Prescription Management I considered prescription management with: Antibiotic Critical Care Time Critical Care Time Critical Care Time: Yes Total Critical Care Time: 55 Attestation: I have personally provided critical care time exclusive of time spent on separately billable procedures. Time includes review of lab data, radiology results, discussion with consultants, and monitoring for potential decompensation. Intervention performed as documented. Discharge Plan Discharge Prescriptions: No Action multivitamin Tablet 1 tab PO DAILY hydrochlorothiazide 12.5 mg tablet 1 tab PO DAILY lorazepam [Ativan] 1 mg tablet 1 mg PO BID Qty: 60 0RF prednisone 20 mg tablet 40 mg PO DAILY Qty: 10 0RF acetaminophen [Tylenol Extra Strength] 500 mg tablet 1,000 mg PO Q6H PRN (Reason: pain) Qty: 60 0RF oxycodone 5 mg tablet 5 mg PO Q6H PRN (Reason: pain) Qty: 14 0RF Rx Instructions: Partial Fill upon patient request. cefuroxime axetil 250 mg tablet 250 mg PO BID 7 Days Qty: 14 0RF prednisone 20 mg tablet 40 mg PO DAILY Qty: 10 0RF oxycodone-acetaminophen [Percocet] 5-325 mg tablet 1 tab PO Q6H PRN (Reason: pain) Qty: 20 0RF Rx Instructions: Partial Fill upon patient request. prednisone 20 mg tablet 40 mg PO DAILY 5 Days Qty: 10 0RF ergocalciferol (vitamin D2) 1,250 mcg (50,000 unit) capsule 1,250 mcg PO QWEEK ferrous gluconate 324 mg (38 mg iron) tablet 324 mg PO DAILY Print Language: Swedish
[2024-03-23] MEDS: LORazepam 0.5 MG TABLET PO ×2 (11:24→18:46)
[2024-03-23] MEDS: Morphine Sulfate 4 MG/ML CARTRIDGE IVPUSH ×2 (11:36→13:44)
[2024-03-23] MEDS: ondansetron HCL 4 MG/2 ML VIAL IVPUSH (11:36)
[2024-03-23 11:42] LABS: Basophils Absolute Auto 0.1 X10*3/uL (0.0-0.2); Basophils Percent Auto 0.3 % (0-2); Hematocrit 32.3 % (37.0-47.0); Hemoglobin 9.7 g/dl (12.0-16.0); Imm Gran Abs Auto 0.07 X10*3/uL (0.00-0.03); Imm Gran Pct Auto 0.4 % (0.0-0.4); Lymphocytes Absolute Auto 0.5 X10*3/uL (1.2-4.9); Lymphocytes Percent Auto 3.2 % (20-40); MANUAL DIFF FLAG SCAN; Mean Corpuscular Hemoglobin 23.2 pg (27.0-33.0); Mean Corpuscular Volume 77.1 fL (80.0-98.0); Mean Platelet Volume 10.3 fL (9.4-12.3); Monocytes Absolute Auto 0.5 X10*3/uL (0.1-1.2); Monocytes Percent Auto 3.1 % (2-11); Platelet Count 372 X10*3/uL (160-400); Red Blood Count 4.19 X10*6/uL (4.20-5.50); Red Cell Distribution Width 18.6 % (11.0-16.0); SCAN SMEAR FLAG 1; White Blood Count 16.1 X10*3/uL (4.8-10.8)
[2024-03-23 11:56] LABS: Appearance Urine Turbid; Color Urine RED; Glucose Urine UA Negative (Negative); Leukocyte Esterase Urine Moderate (2+) (Negative); Nitrite Urine Negative (Negative); UMIC TRIGGER UACC YES; Urine Blood Large (3+) (Negative); Urine Ketones Negative (Negative); Urine Protein 300 (3+) mg/dL (Neg-Trace)
[2024-03-23 11:57] LABS: Alanine Aminotransferase 13 U/L (0-31); Albumin Level 3.9 g/dL (3.5-5.0); Alkaline Phosphatase 75 U/L (39-117); Anion Gap 18 (12-20); Aspartate Amino Transferase 17 U/L (5-31); Bilirubin Total 0.3 mg/dL (0.0-1.0); Blood Urea Nitrogen 31 mg/dL (9-16); Carbon Dioxide 20 mmol/L (22-29); Chloride 104 mmol/L (96-108); Creatinine Clr Calc Pharmacy 21.8; Estimated Glomerular Filt Rate 17; Glucose Random 140 mg/dL (60-115); Potassium 4.2 mmol/L (3.3-5.1); Sodium 138 mmol/L (135-145); Specific Gravity - Urine 1.015 (1.005-1.025)
[2024-03-23 11:59] LABS: UPreg QC Valid YES; Urine Pregnancy NEGATIVE (NEGATIVE)
[2024-03-23 12:02] LABS: UACC Culture Trigger YES
[2024-03-23 12:03] LABS: Bacteria Urine Trace (None Seen); Hyaline Casts Urine 0-2 /LPF (0-2); RBC Urine >20 /HPF (0-2); Squamous Epithelial Cell Urine 0-2 /HPF (0-2)
[2024-03-23 12:08] LABS: SLIDE REVIEW VERIFIED
[2024-03-23] MEDS: 0.9 % Sodium Chloride 1,000 ML 999 ML IV (13:41)
[2024-03-23] MEDS: cefTRIAXone sodium 1 GM VIAL IVPUSH (14:44)
--- NOTE | 2024-03-23 15:23 | PM.IMHP ---
History of Present Illness Date of Service: 03/23/24 Chief Complaint: Left flank pain The patient is a 48-year-old female with a past medical history of recurrent nephrolithiasis, medullary sponge kidney, hypertension, anemia, anxiety who presents to the emergency room with a 1 day history of left flank pain which acutely worsened on the day prior to admission. The patient is known to have kidney stones and was seen in our emergency room in February at which point she was diagnosed with left-sided hydroureter and hydronephrosis with 3 distinct calculi seen in the proximal left ureter just distal to the UPJ. At this time she was treated symptomatically in the emergency room and was discharged with outpatient follow up with Urology. The patient reports that since then she has been self treating at home with dietary changes and increased hydration. She reports improvement in her pain since that ED visit up until the day prior to admission. Since then, she reports ongoing left-sided flank pain with associated nausea. She denies any dysuria. She reports chills without fevers. Her pain continued to worsen and hence she presented to the emergency room. In the ED, she underwent workup to include a CT scan of the abdomen and pelvis which again showed an 6 mm obstructing stone in the proximal ureter. UA with possible UTI. She has leukocytosis of 16 K. she has SHREYA and CKD with serum creatinine of 2.96, nearly doubled from her baseline. She has been given multiple doses of IV analgesics, IV antiemetics anxiolytics IV antibiotics and 1 L of intravenous fluids. Her case has been discussed with the urologist and now she will be admitted for further care. Review of Systems Review of Systems: Negative except HPI/interval history. 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 Meds Allergies Allergy/AdvReac Type Severity Reaction Status Date / Time No Known Allergies Allergy Unknown NONE Verified 03/23/24 11:03 Active Medications: Current Medications Acetaminophen (Acetaminophen 325 Mg Tablet) 650 mg PO Q6H PRN PRN Reason: Pain, Mild (Pain Scale 1-3), fever or headache Calcium Carbonate (Calcium Carbonate 750 Mg Tab.Chew) 750 mg PO Q4H PRN PRN Reason: Heartburn Hydromorphone HCl (Hydromorphone Hcl 0.5 Mg/0.5 Ml Syringe) 0.5 mg IVPUSH Q4H PRN; Protocol PRN Reason: Pain, Severe (Pain Scale 7-10) Magnesium Hydroxide (Milk Of Magnesia 30 Ml Oral.Susp) 30 ml PO DAILY PRN PRN Reason: Constipation Melatonin (Melatonin 3 Mg Tablet) 6 mg PO BEDTIME PRN PRN Reason: Insomnia Oxycodone HCl (Oxycodone Hcl Immed Release 5 Mg Tablet) 5 mg PO Q4H PRN PRN Reason: Pain, Moderate(Pain Scale 4-6) Sodium Chloride (0.9 % Sodium Chloride Flush 3 Ml Syringe) [facility] Medications ?Medication ?Instructions ?Recorded ?Confirmed ?Last Taken ?Type hydrochlorothiazide 12.5 mg tablet 1 tab PO DAILY 12/17/20 08/29/23 12/16/20 History multivitamin 1 tab PO DAILY 12/17/20 12/17/20 12/16/20 History ergocalciferol (vitamin D2) 1,250 1,250 mcg PO QWEEK 08/29/23 08/29/23 Unknown History mcg (50,000 unit) capsule ferrous gluconate 324 mg (38 mg 324 mg PO DAILY 08/29/23 08/29/23 Unknown History iron) tablet Physical Exam Vital Signs and Narrative: Vital Signs: Last Vital Signs Temp 98.4 F 03/23/24 11:02 Pulse 71 03/23/24 11:02 Resp 18 03/23/24 11:02 BP 168/92 H 03/23/24 11:02 Pulse Ox 99 03/23/24 11:02 O2 Del Method Room Air 03/23/24 11:02 BMI result Body Mass Index 28.5 Const: Other: Constitutional - Awake and Alert, No apparent distress Eyes - PERRLA, EOMI Cardiovascular - S1S2, RRR, No edema Respiratory - Normal lung expansion, Normal respiratory effort, No respiratory distress, CTA bilaterally Gastrointestinal - NT / ND; +BS; No rebound or guarding -left CVA tenderness Extremities - no calf tenderness bilaterally, no swelling Musculoskeletal - Normal inspection, normal ROM Skin - Warm/Dry Neurological - Alert & oriented x3, No focal deficit Psychological - Appropriate affect Results Labs 03/23/24 11:32 03/23/24 11:32 Labs: Laboratory Results - last 24 hr 03/23/24 11:32 MCV 77.1 L MCH 23.2 L MCHC 30.0 L RDW 18.6 H Plt Count 372 MPV 10.3 Immature Gran % (Auto) 0.4 Neut % (Auto) 93.0 H Lymph % (Auto) 3.2 L [place] % (Auto) 3.1 Eos % (Auto) 0.0 Baso % (Auto) 0.3 Lymph # (Auto) 0.5 L [place] # (Auto) 0.5 Eos # (Auto) 0.0 Baso # (Auto) 0.1 Abs Immat Gran (auto) 0.07 H Absolute Neuts (auto) 15.0 H Absolute Nucleated RBC 0.000 Nucleated RBC % (auto) 0.0 Smear Tech's Comments VERIFIED Anion Gap 18 Estim Creat Clear Calc 21.8 Estimated GFR 17 Random Glucose 140 H Calcium 10.0 Total Bilirubin 0.3 AST 17 ALT 13 Alkaline Phosphatase 75 Total Protein 7.0 Albumin 3.9 Urine Color RED Urine Appearance Turbid Urine pH 7.0 Ur Specific [place] 1.015 Urine Protein 300 (3+) H Urine Glucose (UA) Negative Urine Ketones Negative Urine Blood Large (3+) H Urine Nitrite Negative Ur Leukocyte Esterase Moderate (2+) H Urine RBC >20 H Urine WBC 11-20 Ur Squamous Epith Cells 0-2 Urine Bacteria Trace Hyaline Casts 0-2 Urine Test NEGATIVE Imaging Radiologist's Impressions: Impressions Abdomen/Pelvis CT 03/23/24 12:21 IMPRESSION: 1. 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 2. Bilateral dense calcifications of the renal collecting system suggesting medullary sponge kidney nephrocalcinosis. 3. Atrophic right kidney. 4. Heavy diverticulosis of the sigmoid colon without CT evidence of acute diverticulitis. 5. Bulky uterus, cannot rule out uterine mass fibroids. Consider correlation with follow-up pelvic ultrasound. Electronically signed by: Siobhan Muñoz MD 03/23/2024 01:49 PM EDT RP Assessment and Plan (1) SHREYA (acute kidney injury): Status: Acute (2) Hydronephrosis with urinary obstruction due to ureteral calculus: Status: Acute Plan 48-year-old female with a history of medullary sponge kidney and recurrent nephrolithiasis, CKD stage III with a baseline serum creatinine 1.3-1.6, anxiety, hypertension who presents to the emergency room with a 1 day history of acutely worsened left flank pain. 1. SHREYA on CKD stage 3 due to obstructing nephrolithiasis We will initiate IV hydration and IV analgesics Consult urology 2. Possible UTI Empiric ceftriaxone Follow cultures Patient is not septic at this time. Her SHREYA is due to obstructing stone. 3. Hypertension On HCTZ at home, likely will have to use an alternative. For now will monitor 4. Anxiety P.r.n. Ativan 5. Microcytic anemia Continue replacement Full Code DVT pptx - low risk; early ambulation + compression device Pt with obstructive uropathy + SHREYA + nephrolithiasis with suspected UTI therefore expected to require 2 midnights in the hospital for treatment, hence will be admitted as inpatient. Quality Stroke Does the patient have a stroke diagnosis?: No VTE Prior VTE?: No VTE Risk Level:: Medical - low VTE Device Contraindication: N/A - Device Ordered VTE Drug Contraindication: Treatment Not Indicated
[2024-03-23 16:19] VITALS: BP 135/77; PULSE 70; RESP 10; TEMP 36.8; O2SAT 99
[2024-03-23] MEDS: HYDROmorphone HCl 0.5 MG/0.5 ML SYRINGE IVPUSH ×2 (16:29→20:48)
[2024-03-23] MEDS: Lactated Ringers 1,000 ML 100 ML IVCONT (16:32)
[2024-03-23] MEDS: 0.9 % Sodium Chloride Flush 3 ML SYRINGE IVFLUSH (16:32)
--- NOTE | 2024-03-23 17:08 | PHA.MEDREC ---
Addendum entered by Tere Williamson RPh 03/23/24 17:29: Reviewed by [facility] Original Note: Pharmacy Consult ? Medication Reconciliation Pharmacy has completed the medication reconciliation. Spoke with patient to confirm medications. She takes ferrous sulfate and B12 every other day. She is still taking prednisone but has been taking once daily, last taken @0530 today. She last took the vitamin d2 in January. She is no longer taking allopurinol or cyclobenzaprine. She ran out of docusate about 5 months ago. She has a new prescription for potassium citrate 10 mEq tabs - 2 tabs BID but patient reports she has not started taking it yet.
[2024-03-23 17:12] VITALS: BP 145/82; PULSE 67; RESP 67; TEMP 37.2; O2SAT 98
[2024-03-23] MEDS: Cyanocobalamin (Vitamin B-12) 500 MCG TABLET PO (18:27)
[2024-03-23 18:38] VITALS: BP 151/76; PULSE 72; RESP 18; TEMP 37.1; O2SAT 99
[2024-03-23 19:07] VITALS: BP 135/76; PULSE 75; RESP 16; TEMP 36.6; O2SAT 100
[2024-03-24] MEDS: Lactated Ringers 1,000 ML 100 ML IVCONT (01:34)
[2024-03-24 03:39] VITALS: BP 119/58; PULSE 85; RESP 16; TEMP 36.6; O2SAT 98
[2024-03-24] MEDS: HYDROmorphone HCl 0.5 MG/0.5 ML SYRINGE IVPUSH ×3 (04:19→20:27)
[2024-03-24] MEDS: oxyCODONE HCl Immed Release 5 MG TABLET PO ×3 (07:07→14:20)
[2024-03-24 07:23] LABS: Anion Gap 11 (12-20); Blood Urea Nitrogen 27 mg/dL (9-16); Calcium 9.3 mg/dL (8.4-10.2); Carbon Dioxide 23 mmol/L (22-29); Chloride 109 mmol/L (96-108); Creatinine Clr Calc Pharmacy 23.5; Estimated Glomerular Filt Rate 19; Glucose Random 101 mg/dL (60-115); Potassium 3.5 mmol/L (3.3-5.1); Sodium 139 mmol/L (135-145)
[2024-03-24 07:32] LABS: Hematocrit 28.6 % (37.0-47.0); Hemoglobin 8.4 g/dl (12.0-16.0); Mean Corpuscular HGB Conc 29.4 g/dl (31.0-35.0); Mean Corpuscular Hemoglobin 23.3 pg (27.0-33.0); Mean Corpuscular Volume 79.2 fL (80.0-98.0); Mean Platelet Volume 11.2 fL (9.4-12.3); Platelet Count 325 X10*3/uL (160-400); Red Blood Count 3.61 X10*6/uL (4.20-5.50); Red Cell Distribution Width 19.1 % (11.0-16.0); White Blood Count 11.7 X10*3/uL (4.8-10.8)
[2024-03-24 07:38] VITALS: BP 123/63; PULSE 83; RESP 18; TEMP 38.3; O2SAT 99
[2024-03-24 09:12] VITALS: TEMP 37.2
--- NOTE | 2024-03-24 09:30 | P.PNIM_ITS ---
Subjective Subjective Date of Service: 03/24/24 Interval History: seen and examined this AM feels less pain would like to eat Review of Systems Negative except HPI/interval history. Physical Exam 2 Vital Signs: Vital Signs: Last Vital Signs Temp 99.0 F 03/24/24 09:12 Pulse 83 03/24/24 07:38 Resp 18 03/24/24 07:38 BP 123/63 03/24/24 07:38 Pulse Ox 99 03/24/24 07:38 O2 Del Method Room Air 03/24/24 07:38 BMI result Body Mass Index 28.5 Const: Other: General - no acute distress, appears comfortable Cardiovascular - regular rate and rhythm, S1-S2 Lungs - normal respiratory effort, clear to auscultation bilaterally, no wheezing Abdomen - soft, nontender, no rebound or guarding; L cva TTP Extremities - no edema bilaterally Neuro - awake and alert, no focal deficits Objective Data Active Medications Acetaminophen (Acetaminophen 325 Mg Tablet) 650 mg PO Q6H PRN PRN Reason: Pain, Mild (Pain Scale 1-3), fever or headache Calcium Carbonate (Calcium Carbonate 750 Mg Tab.Chew) 750 mg PO Q4H PRN PRN Reason: Heartburn Ceftriaxone Sodium (Ceftriaxone Sodium 1 Gm Vial) 1 gm IVPUSH Q24H [facility] Cyanocobalamin (Cyanocobalamin (Vitamin B-12) 500 Mcg Tablet) 500 mcg PO Q48H [facility] Last Admin: 03/23/24 18:27 Dose: 500 mcg Documented By: JUANPABLO Hydromorphone HCl (Hydromorphone Hcl 0.5 Mg/0.5 Ml Syringe) 0.5 mg IVPUSH Q4H PRN; Protocol PRN Reason: Pain, Severe (Pain Scale 7-10) Last Admin: 03/24/24 09:09 Dose: 0.5 mg Documented By: FRANCIS Lactated Ringer's (Lr) 1,000 mls @ 100 mls/hr IVCONT .Q10H [facility] Stop: 03/24/24 11:29 Last Admin: 03/24/24 01:34 Dose: 100 mls/hr Documented By: SILVIA Lorazepam (Lorazepam 0.5 Mg Tablet) 0.5 mg PO Q6H PRN PRN Reason: Anxiety Last Admin: 03/23/24 18:46 Dose: 0.5 mg Documented By: JUANPABLO Magnesium Hydroxide (Milk Of Magnesia 30 Ml Oral.Susp) 30 ml PO DAILY PRN PRN Reason: Constipation Melatonin (Melatonin 3 Mg Tablet) 6 mg PO BEDTIME PRN PRN Reason: Insomnia Ondansetron HCl (Ondansetron Hcl 4 Mg/2 Ml Vial) 4 mg IVPUSH Q6H PRN PRN Reason: Nausea Oxycodone HCl (Oxycodone Hcl Immed Release 5 Mg Tablet) 5 mg PO Q4H PRN PRN Reason: Pain, Moderate(Pain Scale 4-6) Last Admin: 03/24/24 07:07 Dose: 5 mg Documented By: FRANCIS Sodium Chloride (0.9 % Sodium Chloride Flush 3 Ml Syringe) 3 ml IVFLUSH QSHIFT [facility] Last Admin: 03/24/24 07:07 Dose: Not Given Documented By: FRANCIS Non-Admin Reason: IV Running Labs 03/24/24 06:50 03/24/24 06:50 Labs: Laboratory Results - last 24 hr 03/23/24 03/23/24 03/24/24 11:32 15:13 06:50 MCV 77.1 L 79.2 L MCH 23.2 L 23.3 L MCHC 30.0 L 29.4 L RDW 18.6 H 19.1 H Plt Count 372 325 MPV 10.3 11.2 Immature Gran % (Auto) 0.4 Neut % (Auto) 93.0 H Lymph % (Auto) 3.2 L [place] % (Auto) 3.1 Eos % (Auto) 0.0 Baso % (Auto) 0.3 Lymph # (Auto) 0.5 L [place] # (Auto) 0.5 Eos # (Auto) 0.0 Baso # (Auto) 0.1 Abs Immat Gran (auto) 0.07 H Absolute Neuts (auto) 15.0 H Absolute Nucleated RBC 0.000 0.000 Nucleated RBC % (auto) 0.0 0.0 Smear Tech's Comments VERIFIED Anion Gap 18 11 L Estim Creat Clear Calc 21.8 23.5 Estimated GFR 17 19 Random Glucose 140 H 101 Lactic Acid 1.0 Calcium 10.0 9.3 D Total Bilirubin 0.3 AST 17 ALT 13 Alkaline Phosphatase 75 Total Protein 7.0 Albumin 3.9 Urine Color RED Urine Appearance Turbid Urine pH 7.0 Ur Specific [place] 1.015 Urine Protein 300 (3+) H Urine Glucose (UA) Negative Urine Ketones Negative Urine Blood Large (3+) H Urine Nitrite Negative Ur Leukocyte Esterase Moderate (2+) H Urine RBC >20 H Urine WBC 11-20 Ur Squamous Epith Cells 0-2 Urine Bacteria Trace Hyaline Casts 0-2 Urine Test NEGATIVE Assessment and Plan (1) SHREYA (acute kidney injury): Status: Acute (2) Hydronephrosis with urinary obstruction due to ureteral calculus: Status: Acute Plan 48-year-old female with a history of medullary sponge kidney and recurrent nephrolithiasis, CKD stage III with a baseline serum creatinine 1.3-1.6, anxiety, hypertension who presents to the emergency room with a 1 day history of acutely worsened left flank pain. 1. SHREYA on CKD stage 3 due to obstructing nephrolithiasis continue IVF SCr slight improvement pt still with pain urology consult pending 2. Possible UTI rocephin day 2 f/u cultures 3. Hypertension BP stable, continue off hctz 4. Anxiety P.r.n. Ativan 5. Microcytic anemia Continue replacement Full Code DVT pptx - low risk; early ambulation + compression device reason for continued hospitalization: SHREYA, nephrolithiasis, iv antibotics for uti Quality Stroke Does the patient have a stroke diagnosis?: No VTE Prior VTE?: No VTE Risk Level:: Medical - low VTE Device Contraindication: N/A - Device Ordered VTE Drug Contraindication: Treatment Not Indicated
--- NOTE | 2024-03-24 09:47 | MHC.CM.PN ---
Pt self-care, lives at home with her 2 children. Pt states she has crutches that she uses when her gout flares up. Pt will transport herself home at discharge (car is in lot). Educated on HCP, pt declined at this time. PCP: Dr. Lydia Bardales
[2024-03-24] MEDS: Acetaminophen 325 MG TABLET 650 MG PO (14:19)
[2024-03-24] MEDS: cefTRIAXone sodium 1 GM VIAL IVPUSH (14:20)
[2024-03-24] MEDS: LORazepam 0.5 MG TABLET PO ×2 (14:27→20:27)
[2024-03-24 15:29] VITALS: BP 109/75; PULSE 80; RESP 18; TEMP 36.7; O2SAT 95
[2024-03-24] MEDS: 0.9 % Sodium Chloride Flush 3 ML SYRINGE IVFLUSH ×2 (16:13→21:56)
--- NOTE | 2024-03-24 19:43 | PM.UROCN ---
History of Present Illness Consult details Consult date: 03/24/24 Narrative: CC: left flank pain 48-year-old female Known to Urology Has not been seen since 2020 Has followed with Nephrology Baseline Medullary sponge kidney Poorly functioning right kidney Presents with left flank pain intermittent for past 4 weeks Creatinine baseline 1.4, on admission 2.9, WBC on admission 16 Has received IV antibiotics Imaging - CT left renal hydronephrosis due to obstructing stone in the proximal left ureter roughly measures 6 mm, hydronephrosis has worsened since prior exam, Minimal distress at time of interview Recommend cystoscopy with left retrograde and stent placement as interval temporizing measure Follow-up ureteroscopy with definitive stone procedure Review of Systems Constitutional: Constitutional: Reports as per HPI and Reports no additional constitutional complaints Cardiovascular: Cardiovascular: Reports as per HPI and Reports no additional cardiovascular complaints Respiratory: Respiratory: Reports as per HPI and Reports no additional respiratory complaints Gastrointestinal: Gastrointestinal: Reports as per HPI and Reports no additional gastrointestinal complaints Genitourinary: Genitourinary: Reports as per HPI Musculoskeletal: Musculoskeletal: Reports no additional musculoskeletal complaints and Reports as per HPI Neurologic: Reports system reviewed and no additional complaints, except as documented and Reports as per HPI [facility] Past Medical History Medical History Anemia HTN (hypertension) Chronic UTI Renal stones Acute cystitis with hematuria Nephroureterolithiasis Social History Social History Household Members: Family Housing: Apartment Do you presently have visiting nurse or other home services: No Alcohol intake: current Alcohol intake frequency: a few times a month Alcohol type: wine Patient Tobacco Use Status: Never used Tobacco Substance Use Type: Marijuana service: No Current occupational status: employed 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 Meds Allergies Allergy/AdvReac Type Severity Reaction Status Date / Time No Known Allergies Allergy Unknown NONE Verified 03/23/24 11:03 Active Medications: Current Medications Acetaminophen (Acetaminophen 325 Mg Tablet) 650 mg PO Q6H PRN PRN Reason: Pain, Mild (Pain Scale 1-3), fever or headache Last Admin: 03/24/24 14:19 Dose: 650 mg Calcium Carbonate (Calcium Carbonate 750 Mg Tab.Chew) 750 mg PO Q4H PRN PRN Reason: Heartburn Ceftriaxone Sodium (Ceftriaxone Sodium 1 Gm Vial) 1 gm IVPUSH Q24H [facility] Last Admin: 03/24/24 14:20 Dose: 1 gm Cyanocobalamin (Cyanocobalamin (Vitamin B-12) 500 Mcg Tablet) 500 mcg PO Q48H [facility] Last Admin: 03/23/24 18:27 Dose: 500 mcg Hydromorphone HCl (Hydromorphone Hcl 0.5 Mg/0.5 Ml Syringe) 0.5 mg IVPUSH Q4H PRN; Protocol PRN Reason: Pain, Severe (Pain Scale 7-10) Last Admin: 03/24/24 09:09 Dose: 0.5 mg Lorazepam (Lorazepam 0.5 Mg Tablet) 0.5 mg PO Q6H PRN PRN Reason: Anxiety Last Admin: 03/24/24 14:27 Dose: 0.5 mg Magnesium Hydroxide (Milk Of Magnesia 30 Ml Oral.Susp) 30 ml PO DAILY PRN PRN Reason: Constipation Melatonin (Melatonin 3 Mg Tablet) 6 mg PO BEDTIME PRN PRN Reason: Insomnia Ondansetron HCl (Ondansetron Hcl 4 Mg/2 Ml Vial) 4 mg IVPUSH Q6H PRN PRN Reason: Nausea Oxycodone HCl (Oxycodone Hcl Immed Release 5 Mg Tablet) 5 mg PO Q4H PRN PRN Reason: Pain, Moderate(Pain Scale 4-6) Last Admin: 03/24/24 14:20 Dose: 5 mg Sodium Chloride (0.9 % Sodium Chloride Flush 3 Ml Syringe) [facility] Last Admin: 03/24/24 16:13 Dose: 3 ml Home Medications ?Medication ?Instructions ?Recorded ?Confirmed ?Last Taken ?Type hydrochlorothiazide 12.5 mg tablet 1 tab PO DAILY 12/17/20 03/23/24 03/23/24 History ergocalciferol (vitamin D2) 1,250 1,250 mcg PO QMONTH 08/29/23 03/23/24 Unknown History mcg (50,000 unit) capsule ferrous gluconate 324 mg (38 mg 324 mg PO Q OTHER DAY 08/29/23 03/23/24 03/21/24 History iron) tablet cyanocobalamin (vitamin B-12) 500 500 mcg PO Q OTHER DAY 03/23/24 03/23/2403/21/24 History mcg tablet lorazepam 1 mg tablet (Ativan) 1 mg PO DAILY PRN Anxiety 03/23/24 03/23/24 Unknown History prednisone 20 mg tablet 20 mg PO DAILY 03/23/24 03/23/24 03/23/24 05:30 History Physical Exam Vital Signs: Vital Signs: Last Vital Signs Temp 98.1 F 03/24/24 15:29 Pulse 80 03/24/24 15:29 Resp 18 03/24/24 15:29 BP 109/75 03/24/24 15:29 Pulse Ox 95 03/24/24 15:29 O2 Del Method Room Air 03/24/24 15:29 BMI result Body Mass Index 28.5 Const: General: cooperative, healthy appearing, comfortable and no acute distress Orientation/consciousness: patient oriented x3 HEENT: Face and sinus: Yes normal facial exam Mouth: moist mucous membranes Neck: Neck: Yes normal visual inspection, Yes full ROM and Yes trachea midline Chest: Chest palpation & inspection: normal inspection of the chest Resp: Effort & Inspection: normal respiratory effort, able to speak in complete sentences and no respiratory distress GI: Inspection: Yes normal to inspection Back/Spine/Pelvis: Cervical Spine: normal cervical lordosis Thoracic/Lumbar Spine: thoracic and lumbar spine normal to inspection Skin: General skin exam: no rashes or lesions noted Neuro: General: patient oriented x3, tone normal and moves all extremities Extrem: General: Yes normal to inspection and Yes capillary refill normal Results Labs 03/24/24 06:50 03/24/24 06:50 Labs: Abnormal lab results 03/24/24 Range/Units 06:50 WBC 11.7 H (4.8-10.8) X10*3/uL RBC 3.61 L (4.20-5.50) X10*6/uL Hgb 8.4 L (12.0-16.0) g/dl Hct 28.6 L (37.0-47.0) % MCV 79.2 L (80.0-98.0) fL MCH 23.3 L (27.0-33.0) pg MCHC 29.4 L (31.0-35.0) g/dl RDW 19.1 H (11.0-16.0) % Chloride 109 H (96-108) mmol/L Anion Gap 11 L (12-20) BUN 27 H (9-16) mg/dL Creatinine 2.75 H (0.5-1.4) mg/dL Short CBC 03/24/24 Range/Units 06:50 WBC 11.7 H (4.8-10.8) X10*3/uL Hgb 8.4 L (12.0-16.0) g/dl Hct 28.6 L (37.0-47.0) % Plt Count 325 (160-400) X10*3/uL BMP 03/24/24 06:50 Sodium 139 Potassium 3.5 Chloride 109 H Carbon Dioxide 23 BUN 27 H Creatinine 2.75 H Calcium 9.3 D Urine 03/23/24 Range/Units 11:32 Urine Color RED Urine Appearance Turbid Urine pH 7.0 (5.0-9.0) Ur Specific [place] 1.015 (1.005-1.025) Urine Protein 300 (3+) H (Neg-Trace) mg/dL Urine Glucose (UA) Negative (Negative) mg/dL Urine Test NEGATIVE (NEGATIVE) All other labs normal. Imaging Abdomen CT scan report/results: report reviewed and image reviewed Assessment and Plan (1) SHREYA (acute kidney injury): Status: Acute (2) Hydronephrosis with urinary obstruction due to ureteral calculus: Status: Acute Plan Risks, benefits and alternatives to therapy were discussed. These include but are not limited to infection, bleeding, damage to local organs and tissues, need for further interventions. Anesthetic risks regarding cardiac arrhythmia, blood clots, and potential mortality were discussed. The patient understands the typical recovery time and the outpatient nature of the procedure. After consideration of these risks the patient gives full informed consent and they wish to move ahead with the procedure. Cystoscopy, left retrograde, left stent placement Procedures Date of Service Date of Service: 03/24/24
[2024-03-24 19:46] VITALS: BP 136/90; PULSE 77; RESP 16; TEMP 36.5; O2SAT 97
[2024-03-24] MEDS: Melatonin 3 MG TABLET 6 MG PO (23:36)
[2024-03-25 04:00] VITALS: BP 134/76; PULSE 71; RESP 16; TEMP 36.7; O2SAT 98
[2024-03-25] MEDS: HYDROmorphone HCl 0.5 MG/0.5 ML SYRINGE IVPUSH (06:01)
[2024-03-25 06:05] VITALS: BP 149/80; PULSE 71
[2024-03-25 08:00] VITALS: BP 140/80; PULSE 74; RESP 16; TEMP 37; O2SAT 94
--- NOTE | 2024-03-25 08:11 | PC.NURSE ---
Report called to SS to SUKHDEEP Antunez .
--- NOTE | 2024-03-25 08:24 | PC.NURSE ---
Pt has questions regarding procedure reached out to both Dr Estevez and Miki Duggan . Dr Miki Santos will see pt before procedure
[2024-03-25 09:01] LABS: Anion Gap 15 (12-20); Blood Urea Nitrogen 19 mg/dL (9-16); Calcium 9.9 mg/dL (8.4-10.2); Carbon Dioxide 25 mmol/L (22-29); Chloride 106 mmol/L (96-108); Creatinine Clr Calc Pharmacy 36.3; Estimated Glomerular Filt Rate 31; Glucose Random 110 mg/dL (60-115); Potassium 3.5 mmol/L (3.3-5.1); Sodium 142 mmol/L (135-145)
--- NOTE | 2024-03-25 11:37 | P.PNUR_ITS ---
Subjective Subjective Date of Service: 03/25/24 Patient reports: no new complaints Interval history: Ginger is a 48 year old female with history of nephrolithiasis. She was admitted due to UTI and SHREYA due left kidney obstructive uropathy due to ureteral stone. Cystoscopy left ureteral stent vs nephrostomy tube discussed with patient as management. Kidney function compromise due to persistent obstruction from stone discussed. The patient refuses procedure. Physical Exam 2 Vital Signs: Vital Signs: Last Vital Signs Temp 98.6 F 03/25/24 08:00 Pulse 74 03/25/24 08:00 Resp 16 03/25/24 08:00 BP 140/80 H 03/25/24 08:00 Pulse Ox 94 03/25/24 08:00 O2 Del Method Room Air 03/25/24 08:00 BMI result Body Mass Index 28.5 Urology Results Labs 03/24/24 06:50 03/25/24 08:19 Labs: Laboratory Results - last 24 hr 03/25/24 08:19 Sodium 142 Potassium 3.5 Chloride 106 Carbon Dioxide 25 Anion Gap 15 BUN 19 H Creatinine 1.78 H Estim Creat Clear Calc 36.3 Estimated GFR 31 Random Glucose 110 Calcium 9.9 D Progress Note: A&P Assessment and plan (1) SHREYA (acute kidney injury): Status: Acute (2) Hydronephrosis with urinary obstruction due to ureteral calculus: Status: Acute Plan SHREYA improved with hydration. The patient refuses cystoscopy ureteral stent and refuses percutaneous nephrostomy tube drainage. The patient needs to follow up with urology as an outpatient. Time Spent With Patient Time: Total time managing care of this patient today ____ minutes. Progress Note: Quality Stroke Does the patient have a stroke diagnosis?: No
[2024-03-25] MEDS: cefuroxime axetiL 500 MG TABLET PO (13:51)
--- NOTE | 2024-03-25 14:33 | P.DS_ITS ---
DS: Providers Provider Date of Service: 03/25/24 Date of admission: 03/23/24 15:17 Date of discharge: 03/25/24 Primary care physician: Unknown Physician Consults: 03/23/24 15:16 Consult to Urology Routine Consulting Provider: [facility] Reason for consultation: obstructing kidney stone, shreya Attending physician on discharge: Elizabeth José Discharging clinician: Elizabeth José DS: Diagnosis Discharge Diagnosis (1) SHREYA (acute kidney injury): Status: Acute (2) Hydronephrosis with urinary obstruction due to ureteral calculus: Status: Acute DS: Summary Hospital Course Hospital Course: HPI:48-year-old female with a past medical history of recurrent nephrolithiasis, medullary sponge kidney, hypertension, anemia, anxiety who presents to the emergency room with a 1 day history of left flank pain which acutely worsened on the day prior to admission. The patient is known to have kidney stones and was seen in our emergency room in February at which point she was diagnosed with left-sided hydroureter and hydronephrosis with 3 distinct calculi seen in the proximal left ureter just distal to the UPJ. At this time she was treated symptomatically in the emergency room and was discharged with outpatient follow up with Urology. The patient reports that since then she has been self treating at home with dietary changes and increased hydration. She reports improvement in her pain since that ED visit up until the day prior to admission. Since then, she reports ongoing left-sided flank pain with associated nausea. She denies any dysuria. She reports chills without fevers. Her pain continued to worsen and hence she presented to the emergency room. In the ED, she underwent workup to include a CT scan of the abdomen and pelvis which again showed an 6 mm obstructing stone in the proximal ureter. UA with possible UTI. She has leukocytosis of 16 K. she has SHREYA and CKD with serum creatinine of 2.96, nearly doubled from her baseline. She has been given multiple doses of IV analgesics, IV antiemetics anxiolytics IV antibiotics and 1 L of intravenous fluids. Her case has been discussed with the urologist and now she will be admitted for further care. Hospital course: 48-year-old female with a history of medullary sponge kidney and recurrent nephrolithiasis, CKD stage III with a baseline serum creatinine 1.3-1.6, anxiety, hypertension who presents to the emergency room with a 1 day history of acutely worsened left flank pain- thought to be SHREYA on CKD stage 3 due to obstructing nephrolithiasis, ua shows pyuria/trace bacteruria, urine cultures sent -started on ivf ,iv ceftriaxone for possible uti, urology was consulted - recomended cytoscopy and stent which she refused and wants to go home -her shreya is improving, hctz placed on hold.her pain seems improved significantly. patient does not want to wait and left AMA .risks of leaving against medical advice including worsening renal function and recurrent flank pain and even renal or systemic infection-in detail, she understand and could reciprocate. staff present during conversation. she says she has appointement with her pcp -will check her labs with pcp -bmp tomorrow. urine culture -< 10,000 cfu/ml,she also follow up with urology on 04/02.urology recomended to give 4 days of antibiotics(she already got 2 days antibiotics). plan: patient has urology on 04/02.urology recomended to give 5 days of antibiotics(ceftin 500 mg po bid x4 days). htn-use amlodipine 2.5 mg daily until hydrochlorothiazide on hold which can be used once BMP repeated if renal functions at baseline. patient was told to go to nearest emergency room if any new symptoms fever,flank pain or difficulty urinating . check her labs with pcp -bmp tomorrow. Above management discussed with the patient detail length she understand and in agreement with the above plan, time spent 40 minute. Time Attestation Total time managing care of this patient today: 40 mintues. Discharge Coordination Time (in mins): 40 min Quality: Safe Use of Opioids Does Pt have an Active Cancer Diagnosis on the Problem List?: No Quality: Stroke Does the patient have a stroke diagnosis?: No Physical Exam Vital Signs: Vital Signs: Last Vital Signs Temp 98.6 F 03/25/24 08:00 Pulse 74 03/25/24 08:00 Resp 16 03/25/24 08:00 BP 140/80 H 03/25/24 08:00 Pulse Ox 94 03/25/24 08:00 O2 Del Method Room Air 03/25/24 08:00 BMI result Body Mass Index 28.5 General - no acute distress, appears comfortable Cardiovascular - regular rate and rhythm, S1-S2 Lungs - normal respiratory effort, clear to auscultation bilaterally, no wheezing Abdomen - soft, nontender, no rebound or guarding Extremities - no edema bilaterally Neuro - awake and alert, no focal deficits DS: Data Data Completed and Pending Labs on day of discharge: Laboratory Results - last 24 hr 03/25/24 08:19 Sodium 142 Potassium 3.5 Chloride 106 Carbon Dioxide 25 Anion Gap 15 BUN 19 H Creatinine 1.78 H Estim Creat Clear Calc 36.3 Estimated GFR 31 Random Glucose 110 Calcium 9.9 D Imaging Chest x-ray: Radiologist's impression: ITS Impressions Abdomen/Pelvis CT 03/23/24 12:21 IMPRESSION: 1. 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 2. Bilateral dense calcifications of the renal collecting system suggesting medullary sponge kidney nephrocalcinosis. 3. Atrophic right kidney. 4. Heavy diverticulosis of the sigmoid colon without CT evidence of acute diverticulitis. 5. Bulky uterus, cannot rule out uterine mass fibroids. Consider correlation with follow-up pelvic ultrasound. Electronically signed by: Siobhan Muñoz MD 03/23/2024 01:49 PM EDT Discharge Plan Discharge Anticipated Discharge Date/Time: 03/25/24 14:14 Patient Disposition: Left Against Medical Advice Discharge Diagnosis: shreya ,htn Referrals: Physician,Unknown J [Primary Care Provider] - 1 Week Discharge Medications: New oxycodone 5 mg Tablet 5 mg PO Q8-12H PRN (Reason: Pain, Moderate(Pain Scale 4-6)) Qty: 10 0RF Rx Instructions: Partial Fill upon patient request. docusate sodium [Colace] 100 mg capsule 100 mg PO DAILY PRN (Reason: constipation) Qty: 30 0RF cefuroxime axetil 500 mg Tablet 500 mg PO Q12H Qty: 8 0RF amlodipine 2.5 mg tablet 2.5 mg PO DAILY Qty: 30 0RF Rx Instructions: use if bp persistently above 140 mmhg polyethylene glycol 3350 [Miralax] 17 gram/dose powder 17 g PO DAILY PRN (Reason: constipation) Qty: 119 0RF Continued acetaminophen [Tylenol Extra Strength] 500 mg tablet 1,000 mg PO Q6H PRN (Reason: pain) Qty: 60 0RF cyanocobalamin (vitamin B-12) 500 mcg tablet 500 mcg PO Q OTHER DAY prednisone 20 mg tablet 20 mg PO DAILY lorazepam [Ativan] 1 mg tablet 1 mg PO DAILY PRN (Reason: Anxiety) ergocalciferol (vitamin D2) 1,250 mcg (50,000 unit) capsule 1,250 mcg PO QMONTH ferrous gluconate 324 mg (38 mg iron) tablet 324 mg PO Q OTHER DAY Held hydrochlorothiazide 12.5 mg tablet 1 tab PO DAILY Hold Instructions: Resume on 03/31/24. Discharge Orders: Discharge Order (Routine); Ordered 03/25/24 Ordered By: Elizabeth José Diet: Advance to usual diet Activity on Discharge: As tolerated Stand Alone Forms: Work/School Release Print Language: Taiwanese Care Plan Goals: 48-year-old female with a history of medullary sponge kidney and recurrent nephrolithiasis, CKD stage III with a baseline serum creatinine 1.3-1.6, anxiety, hypertension who presents to the emergency room with a 1 day history of acutely worsened left flank pain- thought to be SHREYA on CKD stage 3 due to obstructing nephrolithiasis, ua shows pyuria/trace bacteruria, urine cultures sent -started on ivf ,iv ceftriaxone for possible uti, urology was consulted - recomended cytoscopy and stent which she refused and wants to go home -her shreya is improving, hctz placed on hold. patient does not want to wait and left AMA .risks of leaving against medical advice including worsening renal function and recurrent flank pain and even renal or systemic infection-in detail, she understand and could reciprocate. staff present during conversation. she says she has appointement with her pcp -will check her labs with pcp -bmp tomorrow. she also follow up with urology on 04/02.urology recomended to give 5 days of antibiotics. Health Concerns: as above. check her labs with pcp -bmp tomorrow. htn-use amlodipine 2.5 mg daily until hydrochlorothiazide on hold which can be used once BMP repeated if renal functions at baseline. she also follow up with urology on 04/02.urology recomended to give 5 days of antibiotics. patient was told to go to nearest emergency room if any new symptoms fever,flank pain or difficulty urinating Plan of Treatment: as above. Assessment: as above.
--- NOTE | 2024-03-25 14:36 | PC.NURSE ---
Pt is leaving against medical advise despite a detailed conversation with Dr José . 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 IV was removed pt signed AMA papers and was given a paper RX for pain control and aware to roller picker antibiotic and blood pressure RX at [facility] on [facility] in [place] .
== END 2024-03-25 14:36 | disposition left against medical advice (07) | DRG 463 ==
LOC: HO.ED 14:59 → HO.EDOVER 15:23 → HO.S3 16:48
PROVIDERS: Registered Nurse Emergency; Admitting Provider Family Medicine; Emergency Provider Emergency Medicine; PCP Internal Medicine; Visit Provider Internal Medicine
DX: N13.6 Pyonephrosis (principal); N17.9 Acute kidney failure, unspecified; D63.1 Anemia in chronic kidney disease; N18.30 Chronic kidney disease, stage 3 unspecified; Q61.5 Medullary cystic kidney; I12.9 Hypertensive chronic kidney disease with stage 1 through stage 4 chronic kidney disease, or unspecified chronic kidney disease; F41.9 Anxiety disorder, unspecified; Z79.52 Long term (current) use of systemic steroids; Z79.899 Other long term (current) drug therapy
CPT/HCPCS: 36415; 74176; 80048; 80053; 81001; 81025; 83605; 85025; 85027; 87086; 99285; J0696; J1171; J2270; J2405; J7120

== ENCOUNTER → 2024-03-23 15:17 | Outpatient (BNV) | payer OTHER, SELFPAY | PROVIDERS: Admitting Provider Family Medicine; Emergency Provider Emergency Medicine; Visit Provider Family Medicine | DX: N17.9 Acute kidney failure, unspecified (principal); N18.30 Chronic kidney disease, stage 3 unspecified; N13.2 Hydronephrosis with renal and ureteral calculous obstruction | CPT/HCPCS: 99223; 99232; 99239 ==

== ENCOUNTER → 2024-03-23 15:17 | Outpatient (BNV) | payer OTHER, SELFPAY | PROVIDERS: Admitting Provider Family Medicine; Emergency Provider Emergency Medicine; Visit Provider Urology | DX: N17.9 Acute kidney failure, unspecified (principal); N13.2 Hydronephrosis with renal and ureteral calculous obstruction | CPT/HCPCS: 99222; 99232 ==

== ENCOUNTER 2024-08-01 10:58 | Outpatient (REF) | payer OTHER, SELFPAY ==
--- OUTSIDE RECORDS SUMMARY | 2024-08-01 12:47 | XMS_ITS | Clinical Summary ---
Author Organization [address] Address [address] [place] [phone] Phone Care Team Providers Care Exchange Architect Name Role Phone Lydia Gallegos MD Primary Care Prov ider Allergies Active Allergy Reactions Criticality Noted Date Comments Hydrochlorothiazide 03/26/2024 Caused SHREYA and stone per [facility] hospital admission in 03/2024 Reaction [...] PM EST Office Visit Obstetrics and Gynecology [address] [phone] Jolanta Bruce CNM Encounter for annual routine [...] History Surgery Date Site/Laterality Comments SECTION PROCEDURE: [place] DELIVERY ONLY; COMMENT: x2 KIDNEY STONE SURGERY PROCEDURE: [place] NEPHROLITHOTOMY REMOVAL CALCULUS; COMMENT: [facility] ECTOPIC SURGERY 11/2015 PROCEDURE: HISTORICAL ECTOPIC SURGERY HERNIA REPAIR Right PROCEDURE: HISTORICAL HERNIA REPAIR/ING OTHER SURGICAL HISTORY 10/20/2019 PROCEDURE: [place] PYELOTOMY WITH REMOVAL CALCULUS; COMMENT: attempted removal [...] 2:00 PM EDT Office Visit Adult Medicine [facility] [address] [place] [phone] Lydia Gallegos MD [address] [place] [address] Health Maintenance Due Date Last Done Comments [...] LAB MICROBIOLOGY METHOD 07/31/2024 3:14 PM EST [facility] Brushing/Spatula Cervix uteri structure / Unknown 07/30/2024 1:53 PM EST 07/31/2024 7:17 AM EST Jolanta FREITAS LAB MOLECULAR DIAGNOSTICS ORDER ROBERTO CARLOS Final Result Performing Organization Address City/[facility]/ZIP Co de Phone Number [facility] [address] [place] [address], [place] [phone] * Trichomonas vaginalis antigen (07/30/2024 1:53 PM EST) Trichomonas vaginalis Negative Negative 07/30/2024 8:44 PM EST [facility] Swab Vaginal structure / Unknown Non-blood Collection / Unknown 07/30/2024 1:53 PM EST 07/30/2024 1:53 PM EST Jolanta FREITAS LAB MICROBIOLOGY - GENERAL ORDE RABLES Final Result [facility] [address] [place] [address], [place] [phone] * Wet prep, genital (07/30/2024 1:53 PM EST) Clue Cells, Wet Prep Negative Negative 07/30/2024 7:42 PM EST [facility] Yeast, Wet Prep Negative Negative 07/30/2024 7:42 PM EST [facility] Trichomonas, Wet Prep Indeterminate Negative 07/30/2024 7:42 PM EST [facility] Comment:Refer to Trichomonas antigen. Swab Vaginal structure / Unknown Non-blood Collection / Unknown 07/30/2024 1:53 PM EST 07/30/2024 1:53 PM EST Jolanta FREITAS LAB MICROBIOLOGY - GENERAL ORDDiana VALENCIA Final Result [facility] [address] [place] [address], * Pap smear (07/30/2024 1:53 PM EST) Interpretation Negative for intraepithelial lesion or malignancy 08/01/2024 10:08 AM [facility] General Categorization Negative 08/01/2024 10:08 AM [facility] LMP 07/29/2024 08/01/2024 10:08 AM [facility] Specimen Adequacy Satisfactory for evaluation, endocervical/prince sformation zone component present 08/01/2024 10:08 AM [facility] Pap Methodology Liquid Based Pap Test 08/01/2024 10:08 AM [facility] Disclaimer The Pap test is a screening test which carries an inherent false negative rate. These test results should be correlated with the patient's clinical findings and history. This Pap test was processed using an automated screening system. Technical cytopathology services provided by [facility], at [address] [place] [address] (CLIA # [id number]/Rita Roger MD, [employer]er.) 08/01/2024 10:08 AM [facility] Console Pap Interpretation Reported 08/01/2024 10:08 AM [facility] Brushing/Spatula Cervix uteri structure / Unknown 07/30/2024 1:53 PM EST 07/30/2024 1:53 PM EST Jolanta Bruce [facility] CYTOLOGY ORDERABLES Final R esult [facility] ([facility]) [facility] [address] [place] [address], * Annual BMP Blood Test (03/26/2024) Annual [...] was scheduled. BI-RADS 4 ,Suspicious abnormality. Result [facility] Jolene POTTER IMG BI PROCEDURES Final Result * (ABNORMAL) Lipid panel (11/19/2023) [facility] LDL/HDL Ratio 4 0 - 4 Triglycerides 185(A) 0 - 150 mg/dL Cholesterol 199 0 - 200 mg/dL HDL 51 >=40 mg/dL LDL Cholesterol 111(A) 0 - 100 mg/dL Blood Venous blood specimen / Unknown Result [facility] Historical Provider LAB BLOOD ORDERABLES Avril l Result * Depression Screening (11/15/2023) [facility] Depression Screening Abstracted Result [facility] Historical Provider HEALTH MAINTENANCE Final Result * HIV Screening (09/08/2022) HIV Screening Abstracted Historical Provider HEALTH MAINTENANCE Final Result * Hepatitis C Screening (11/04/2021) Hepatitis C Screening Abstracted Historical Provider HEALTH MAINTENANCE Final Result from Last 3 Months or Most Recently Relevant to Health Maintenance Insurance [facility] Care Teams Exchange Architect Relationship Specialty Start Date End Date Lydia Gallegos MD [address] [place] [phone] PCP - General 04/12/22
--- OUTSIDE RECORDS SUMMARY | 2024-08-01 12:47 | XMS_ITS | Encounter Summary ---
Author Organization [employer] Address [address] [place] [address] Care Team Providers Care Line Fisher Name Role Phone Lydia Gallegos MD Primary Care Prov ider Reason for Referral * Imaging (Routine) - Authorized Specialty Diagnoses / Procedures Referred By Juve hummel Referred To Contact Radiology Diagnoses Encounter for annual routine gynecological examination Screening mammogram for breast cancer Mammogram abnormal Procedures MG Mammo Digital Diagnostic Right Jolanta Bruce CNM [address] [place] [address] Phone: tel: fax: [facility] Referral ID Status Reason Start Date Expiration Date V isits Requested Visits Authorized [id number] Authorized 07/30/2024 07/30/2025 1 1 Reason for Visit * Reason Comments Annual Exam Encounter Details Date Type Department Care Team (Late st Contact Info) Description 07/30/2024 1:30 PM EST Office Visit Obstetrics and Gynecology - [address] [phone] Jolanta Bruce CNM [address] [place] [address] Encounter for annual routine gynecological examination (Primary [...] rubbing with a towel. Or, use a hair sample matcher on a cool setting to dry the [...] or 7th GENERATION. 9. Do not use mimn-svf-dexraiw creams or ointments until you ask your [...] will not increase your chances of infection. Koey-xap-mkunzau water-based lubricants tend to dry out before [...] vomiting : No dysuria, frequency or incontinence WIRE SAW OPERATOR: No abnormal vaginal bleeding or abnormal vaginal [...] Surgical History: Procedure Laterality Date SECTION PROCEDURE: RI DELIVERY ONLY; COMMENT: x2 ECTOPIC SURGERY 11/2015 PROCEDURE: HISTORICAL ECTOPIC SURGERY HERNIA REPAIR Right PROCEDURE: HISTORICAL HERNIA REPAIR/ING KIDNEY STONE SURGERY PROCEDURE: RI NEPHROLITHOTOMY REMOVAL CALCULUS; COMMENT: [facility] OTHER SURGICAL HISTORY 10/20/2019 PROCEDURE: RI PYELOTOMY WITH REMOVAL CALCULUS; COMMENT: attempted removal [...] the 07/30/24 encounter (Office Visit) with Jolanta Bruce CNM Medication Sig Dispense Refill allopurinoL (ZYLOPRIM) [...] soft, non-tender, without organomegaly or palpable masses WIRE SAW OPERATOR (FEMALE): WIRE SAW OPERATOR: Normal external genitalia and urethra Vagina without [...] Description 12/16/2024 2:00 PM EDT Office Visit [address] [phone] Lydia Gallegos MD [address] [place] [phone] Scheduled Orders Name Type Priority Associated Diagnoses [...] LAB MICROBIOLOGY METHOD 07/31/2024 3:14 PM EST [facility] Brushing/Spatula Cervix uteri structure / Unknown 07/30/2024 1:53 PM EST 07/31/2024 7:17 AM EST Jolanta FREITAS LAB MOLECULAR DIAGNOSTICS ORDER ROBERTO CARLOS Final Result [facility] [address] [place] [address], [place] [phone] * Trichomonas vaginalis antigen (07/30/2024 1:53 PM EST) Trichomonas vaginalis Negative Negative 07/30/2024 8:44 PM EST [facility] Swab Vaginal structure / Unknown Non-blood Collection / Unknown 07/30/2024 1:53 PM EST 07/30/2024 1:53 PM EST Jolanta FREITAS LAB MICROBIOLOGY - GENERAL ORDE RABLES Final Result Performing Organization Address City/[facility]/ZIP Co de Phone Number [facility] [address] [place] [address], [place] [phone] * Wet prep, genital (07/30/2024 1:53 PM EST) Clue Cells, Wet Prep Negative Negative 07/30/2024 7:42 PM EST [facility] Yeast, Wet Prep Negative Negative 07/30/2024 7:42 PM EST [facility] Trichomonas, Wet Prep Indeterminate Negative 07/30/2024 7:42 PM EST [facility] Comment:Refer to Trichomonas antigen. Swab Vaginal structure / Unknown Non-blood Collection / Unknown 07/30/2024 1:53 PM EST 07/30/2024 1:53 PM EST Jolanta FREITAS LAB MICROBIOLOGY - GENERAL ZACH VALENCIA Final Result [facility] [address] [place] [address], * Pap smear (07/30/2024 1:53 PM EST) Interpretation Negative for intraepithelial lesion or malignancy 08/01/2024 10:08 AM [facility] General Categorization Negative 08/01/2024 10:08 AM [facility] LMP 07/29/2024 08/01/2024 10:08 AM [facility] Specimen Adequacy Satisfactory for evaluation, endocervical/prince sformation zone component present 08/01/2024 10:08 AM [facility] Pap Methodology Liquid Based Pap Test 08/01/2024 10:08 AM [facility] Disclaimer The Pap test is a screening test which carries an inherent false negative rate. These test results should be correlated with the patient's clinical findings and history. This Pap test was processed using an automated screening system. Technical cytopathology services provided by [facility], at [address] [place] [id number] (CLIA # [id number]/Rita Roger MD, Uniform Attendant.) 08/01/2024 10:08 AM [facility] Console Pap Interpretation Reported 08/01/2024 10:08 AM [facility] Brushing/Spatula Cervix uteri structure / Unknown 07/30/2024 1:53 PM EST 07/30/2024 1:53 PM EST us Jolanta Bruce CNM LAB CYTOLOGY ORDERABLES Final R esult MANI [facility] ([facility] [address] [place] [address], documented in this encounter Visit Diagnoses Diagnosis Encounter for annual routine gynecological examination- Primary Screening mammogram for breast cancer Mammogram abnormal Abnormal mammogram, unspecified Papanicolaou smear of cervix with positive high risk human papilloma virus (HPV) test Vagina itching Pruritus of genital organs documented in this encounter Care Teams Line Fisher Relationship Specialty Start Date End Date Lydia Gallegos MD [address] [place] [address] PCP - General 04/12/22 documented as of this encounter
[2024-08-08 18:34] LABS: Stone Source KIDNEY
== END 2024-08-01 10:59 | disposition home or self-care (01) ==
LOC: HO.LNP 10:58
PROVIDERS: Visit Provider Urology
DX: N20.2 Calculus of kidney with calculus of ureter (principal)
CPT/HCPCS: 82365; 88300

== ENCOUNTER 2024-08-01 10:58 | Outpatient (AMB) | payer OTHER, SELFPAY ==
--- NOTE | 2024-08-01 11:06 | MHC.OFFVIS ---
Intake Visit Reasons: med. kidney/hx of nephrolithiasis/Last seen 2020 Intake Note: Pt presents to office today for history of nephrolithiasis/pt last seen 2020 Allergies No Known Allergies Allergy (Unknown, Verified 08/01/24 11:07) NONE HPI Comments Details: Ginger BURTON is a very pleasant turkish speaking female. They are a patient of Dr Leone. They are seen in the office today for the following urologic conditions. - Medullary sponge kidneys Here for follow-up Not been seen since March last year. At that point in time had elevated creatinine with passage of left ureteric stone Right kidney is atrophic following prior scarring has been nonfunctional since prior to 2017 Has restarted taking potassium citrate Also with vitamin B6 Has stones for us to look at today These will be sent for analysis Stone composition - Ammonium-Magnesium Phosphate Hexahydrate (Struvite) 85%Carbonate Apatite (Dahllite) 15% Nephrolithiasis/Urolithiasis: Medullary sponge kidney Nonfunctional right kidney secondary to prior stone issues They are here for further evaluation of nephrolithiasis, followup after stone procedure. They present for evaluation of back pain left flank pain none abdominal pain none Associated symptoms include Fever No Nausea No Chills Yes Hematuria No Urolithiasis was diagnosed 09/23/17 with obstructing ureteric stone and medullary sponge kidney - left side. The patient previously had kidney stones whose composition w 09/26 Struvite 80%. Laboratory investigations include 09/26 , Normocalcemia (9.0), borderline PTH, elevated uric acid - elevated Cr 1.6. 24 Hour urine evaluation none on file. Prior treatment(s) include multiple prior USR and ESWL 09/26 right USR with laser of ureteric and renal pelvis stones 09/28 , right, ESWL, right ureteroscopy with removal of stone fragments. Prior imaging includes 09/26 , a CT (computed tomography) scan of the abdomen/pelvis (stone protocol), showing ureteral stone(s), showing hydronephrosis, showing staghorn calculi - right 1.2cm, left 8mm 09/26 renal scan R:L 5: 95 12/26 , a CT (computed tomography) scan of the abdomen/pelvis (stone protocol) - 5mm proximal left ureteric stone 02/26 , a CT (computed tomography) scan of the abdomen/pelvis (stone protocol), showing radiodense stone(s), left renal 1.6cm 06/29 , a renal ultrasound right renal thinnning with multiple stones, left 1.0cm stone 06/30 , a renal ultrasound, right renal thinning, 1cm stone, left medullary sponge - 10/29 CT scan showing reduced hydronephrosis right kidney with small proximal ureteric stones, left kidney substantial stone burden upper and lower pole PFSH Medical History Anemia HTN (hypertension) Chronic UTI Renal stones Acute cystitis with hematuria Nephroureterolithiasis Social History Household Members: Family Housing: Apartment Do you presently have visiting nurse or other home services: No Alcohol intake: current Alcohol intake frequency: a few times a month Alcohol type: wine Patient Tobacco Use Status: Never used Tobacco Substance Use Type: Marijuana service: No Current occupational status: employed 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 Review of Systems Const Denies chills and Denies fever(s) Card Reports no additional complaints and Denies syncope Resp Denies cough GI Denies abdominal pain and Denies heartburn Reports as per HPI and Denies change in libido Neuro Denies syncope Psych Denies change in libido Endo Denies change in libido Physical Exam Const General: cooperative, healthy appearing, comfortable and no acute distress Orientation/consciousness: patient oriented x3 HEENT Face and sinus: Yes normal facial exam Mouth: moist mucous membranes Neck Neck: Yes normal visual inspection, Yes full ROM and Yes trachea midline Chest Chest palpation & inspection: normal inspection of the chest Resp Effort & Inspection: normal respiratory effort, able to speak in complete sentences and no respiratory distress GI Inspection: Yes normal to inspection Back/Spine/Pelvis Cervical Spine: normal cervical lordosis Thoracic/Lumbar Spine: thoracic and lumbar spine normal to inspection Skin General skin exam: no rashes or lesions noted Neuro General: patient oriented x3, gait normal, tone normal and moves all extremities Extrem General: Yes normal to inspection and Yes capillary refill normal Assessment & Plan Assessment & Plan (1) Nephroureterolithiasis: Code(s): N20.2 - Calculus of kidney with calculus of ureter Category: Medical Plan Repeat imaging in 6 months with Uro risk Orders: Orders US renal BI 6 Months N20.0 - Calculus of kidney URORISK 08/01/24 N20.0 - Calculus of kidney Surgical 08/01/24 N20.2 - Calculus of kidney with calculus of ureter Patient Instructions: This note is constructed using voice recognition software. While every effort has been made to ensure accuracy clinical education manager errors may have been included. Imaging studies, laboratory and physical exam results were discussed and reviewed in detail. No major barriers to patient understanding were identified. An opportunity to ask questions regarding the treatment plan was provided. All questions were answered. The patient expressed understanding and agreement with the above treatment plan. The patient is aware they should contact our office by phone for worsening of their current condition or the appearance of new urologic symptoms. Compliance is encouraged with any medications and followup testing that is ordered. It is a privilege to participate in the urologic care of your patient. If you have any questions or concerns regarding treatment for the above conditions, or other urologic issues, please do not hesitate to contact me. The office telephone contact is [phone]. Sincerely, Dr Jourdan Estevez MD, [facility] - Urology Compassionate Specialist Care for the Genitourinary System Coding Level of Care Code Est Pt Level 4 (01313) Diagnoses Nephroureterolithiasis N20.2
--- OUTSIDE RECORDS SUMMARY | 2024-08-01 12:05 | XMS_ITS | Clinical Summary ---
Author Organization [address] Address [address] [place] [phone] Phone Care Team Providers Care Health Commissioner Name Role Phone Lydia Gallegos MD Primary Care Prov ider Allergies Active Allergy Reactions Criticality Noted Date Comments Hydrochlorothiazide 03/26/2024 Caused SHREYA and stone per [facility] hospital admission in 03/2024 Reaction Type: Side Effect Medications allopurinoL (ZYLOPRIM) 100 mg tablet Take 1 Tablet by mouth daily. Active cholecalciferol, vitamin D3, (D3-50 CHOLECALCIFEROL ORAL) Take by mouth. Active cyanocobalamin-eric mamide (B-12 Plus) 5,000-100 mcg tablet, sublingual Place under the tongue. Active cyclobenzaprine (FLEXERIL) 10 mg tablet Take 1 Tablet by mouth 3 times daily as needed for Muscle spasms. 4 Active docusate sodium (COLACE) 100 mg capsule Take 1 Capsule by mouth 2 times daily for 10 days. 4 Active ergocalciferol (VITAMIN D-2) 1,250 mcg (50,000 unit) capsule Take 1 Capsule by mouth. 4 025 Active LORazepam (ATIVAN) 0.5 mg tablet Take 1 Tablet by mouth. Active potassium citrate (UROCIT-K) 10 mEq (1,080 mg) CR tablet Take 20 mEq by mouth. - Oral Active cefuroxime (CEFTIN) 500 mg tablet Take 1 Tablet by mouth 2 times daily. - Oral Active ferrous gluconate (FERGON) 324 mg (38 mg iron) tablet TAKE 1 TABLET BY MOUTH DAILY (WITH BREAKFAST) FOR 90 DAYS. 90 tablet 1 5 Active amLODIPine (NORVASC) 2.5 mg tablet TAKE 1 TABLET BY MOUTH EVERY DAY 90 tablet 1 5 Active amLODIPine (NORVASC) 2.5 mg tablet Take 1 Tablet by mouth daily. - Oral 025 Discontin ued(Reord er) ferrous gluconate (FERGON) 324 mg (38 mg iron) tablet TAKE 1 TABLET BY MOUTH DAILY (WITH BREAKFAST) FOR 90 DAYS. 90 tablet 5 025 Discontin ued(Reord er) Active Problems Problem Noted Date Diagnosed Date Kidney stones 03/28/2024 Overview (03/28/2024): Since she was 29 years old, Dr. Wang Abnormal mammogram 12/24/2023 Overview (03/28/2024): 12/24/2023: ?? Conclusions: Lobulated mass on the mammogram without ultrasonographic correlation. Findings were explained to the patient. She was suggested to have stereotactic core biopsy. However patient declined the biopsy. Instead she would like to have short-term follow-up examination. 3 months follow-up mammogram was scheduled. BI-RADS 4 ,Suspicious abnormality. Stage 3a chronic kidney disease 09/07/2023 Papanicolaou smear of cervix with positive high risk human papilloma virus (HPV) test 07/18/2023 Vulvar lesion 06/15/2023 Overview (03/28/2024): Last Assessment & Plan: Could be HSV lesion vs excoriation. Will send culture to confirm. Could be cause of sx. Vulvar itching 06/15/2023 Overview (03/28/2024): Last Assessment & Plan: Will send yeast culture as well and treat prn. Coconut oil for comfort for now. Dysuria 06/15/2023 Overview (03/28/2024): Last Assessment & Plan: Will send culture and treat presumptively with 5 days or Bactrim based on history. Push fluids. Prediabetes 11/01/2021 Iron deficiency 05/19/2020 Vitamin D deficiency 11/01/2018 Recurrent UTI 07/02/2018 Overview (03/28/2024): Dr. Wang HTN (hypertension), benign 02/05/2018 Medullary sponge kidney 11/12/2017 Overview (03/28/2024): Dr. Schroeder - nephrology Dr. 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/25/2016 Encounters Date Type Department Care Team Description 07/30/2024 1:30 PM EST Office Visit Obstetrics and Gynecology [address] [phone] Jolanta Bruce CNM Encounter for annual routine gynecological examination (Primary Dx); Screening mammogram for breast cancer; Mammogram abnormal; Papanicolaou smear of cervix with positive high risk human papilloma virus (HPV) test; Vagina itching from Last 3 Months Immunizations Name Administration Dates Next Due Influenza trivalent, with pr eservative (Fluzone; Afluria) 6mo and older 06/22/2014,03/31/2011 MMR, measles mumps and rubel la Live (Priorix; M-M-R II) 12mo and older 07/02/1990,10/08/1978 PPD Test 10/09/2018 Td Tetanus diptheria (Tdvax) 7yo and older 12/10 Tdap Tetanus diptheria acell ular pertussis (Boostrix; Adacel) 7yo and older 08/03/2011 Surgical History Surgery Date Site/Laterality Comments SECTION PROCEDURE: ME DELIVERY ONLY; COMMENT: x2 KIDNEY STONE SURGERY PROCEDURE: ME NEPHROLITHOTOMY REMOVAL CALCULUS; COMMENT: [facility] ECTOPIC SURGERY 11/2015 PROCEDURE: HISTORICAL ECTOPIC SURGERY HERNIA REPAIR Right PROCEDURE: HISTORICAL HERNIA REPAIR/ING OTHER SURGICAL HISTORY 10/20/2019 PROCEDURE: ME PYELOTOMY WITH REMOVAL CALCULUS; COMMENT: attempted removal of stone by dr. 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 Conclusions: Lobulated mass on the mammogram without ultrasonographic correlation. Findings were explained to the patient. She was suggested to have stereotactic core biopsy. However patient declined the biopsy. Instead she would like to have short-term follow-up examination. 3 months follow-up mammogram was scheduled. BI-RADS 4 ,Suspicious abnorm* Family History Medical History Relation Name Comments Hyperlipidemia Brother 1 Hypertension Brother 1 Hyperlipidemia Brother 2 Hypertension Brother 2 No Known Problems Daughter 1 No Known Problems Daughter 2 No Known Problems Father No Known Problems Maternal Grandfather Alzheimer's disease Maternal Grandmother Diabetes Maternal Grandmother Hyperlipidemia Mother Hypertension Mother No Known Problems Paternal Grandfather Diabetes Paternal Grandmother Hypertension Sister 1 Other: Prediabetes Sister 2 Fraternal Twin No Known Problems Son Breast cancer Neg Hx Colon cancer Neg Hx Heart attack Neg Hx Ovarian cancer Neg Hx Pancreatic cancer Neg Hx Prostate cancer Neg Hx Stroke Neg Hx Relation Name Status Comments Brother 1 Alive Brother 2 Alive Daughter 1 Alive Daughter 2 Alive Father Alive Maternal Grandfather Maternal Grandmother Mother Alive Paternal Grandfather Paternal Grandmother Sister 1 Alive Sister 2 Fraternal Twin Alive Son Alive Social History Tobacco Use Types Packs/Day Years Used Date Smoking Tobacco: Former Cigarettes Q uit: 06/11/1999 Smokeless Tobacco: Never Quit: 06/11/2003 Tobacco Cessation:Counseling Given: Not Answered Alcohol Use Standard Drinks/Week Comments Yes 0 (1 standard drink = 0.6 oz pur e alcohol) Comments No Sex and Gender Information Value Date Recorded Sex Assigned at Not on file Legal Sex Female 8:19 PM EST Gender Identity Not on file Sexual Orientation Not on file Obstetrics History Para Term AB IAB SAB Ectopic Multiple Livin g Live Births 4 3 3 1 1 3 3 Date Outcome GA Total Labor Labor/2nd/3rd Weight Sex Type Anes PTL Aaliyah A1 A5 Name Clin Term Vag-S pont Living Term Vag-S pont Living Term Vag-S pont Living 6 Ectopic Last Filed Vital Signs Vital Sign Reading Time Taken Comments Blood Pressure 133/80 07/30/2024 1:33 PM EST Pulse 70 07/30/2024 1:33 PM EST Temperature - - Respiratory Rate - - Oxygen Saturation - - Inhaled Oxygen Concentration - - Weight 69.4 kg (153 lb) 07/30/2024 1:33 PM EST Height 157.5 cm (5' 2 ) 07/30/2024 1:33 PM EST Body Mass Index 27.98 07/30/2024 1:33 PM EST Plan of Treatment Upcoming Encounters Date Type Department Care Team (Late st Contact Info) Description 12/16/2024 2:00 PM EDT Office Visit Adult Medicine [facility] [address] [place] [phone] Lydia Gallegos MD [address] [place] [address] Health Maintenance Due Date Last Done Comments Hepatitis B Vaccines (1 of 3 - 19+ 3-dose series) 1996 Colorectal Cancer Screening: Colonoscopy 05/20/2022 Social Influencers of Health Screening 05/20/2022 COVID-19 Vaccine (2023-2 5 season) 2024 08/24/2021, 03/16/2021, 02/11/2021 Influenza Vaccine (#1) 2024 5, 03/31/2011 Depression Screening 11/14/2024 11/15/2023 Hypertension/CHF/CAD Annual BMP Blood Test 03/26/2025 03/26/2024, 03/26/2024, 11/19/2023 Breast Cancer Screening 12/23/2025 12/24/19 24, 12/24/2023 Cholesterol Screening (Lipid Panel) 11/18/2028 11/19/2023, 11/19/2023 Cervical Cancer Screening: HPV 07/30/2029 0 07/30/2024, 07/06/2023 DTaP,Tdap,and Td Vaccines (3 - Td or Tdap) 12/10/2033 12/11/2023, 08/03/2011 MMR Vaccines Completed 07/02/1990, 10/08/1978 Hepatitis C Screening Completed 11/04/2021 HIV Screening Completed 09/08/2022 HIB Vaccines Aged Out No longer eligi ble based on patient's age to complete this topic HPV Vaccines Aged Out No longer eligi ble based on patient's age to complete this topic Hepatitis A Vaccines Aged Out No long er eligible based on patient's age to complete this topic IPV Vaccines Aged Out No longer eligi ble based on patient's age to complete this topic Meningococcal ACWY Vaccine Aged Out N o longer eligible based on patient's age to complete this topic Meningococcal B Vacine Aged Out No lo nger eligible based on patient's age to complete this topic Pneumococcal Vaccine: Pediatrics (0 to 5 Years) and At-Risk Patients (6 to 64 Years) Aged Out No longer eligible b ased on patient's age to complete this topic RSV Immunization Patients Under 20 months Aged Out No longer eligible b ased on patient's age to complete this topic Varicella Vaccines Aged Out No longer eligible based on patient's age to complete this topic Procedures Procedure Name Priority Date/Time Associated Diagnosis Comments PAP SMEAR Routine 07/30/2024 1:53 PM EST Encounter for annual routine gynecological examination Screening mammogram for breast cancer Mammogram abnormal HPV WITH REFLEX GENOTYPE Routine 07/30/2024 1:53 PM EST Encounter for annual routine gynecological examination Screening mammogram for breast cancer Mammogram abnormal TRICHOMONAS VAGINALIS ANTIGEN Routine 07/30/2024 1:53 PM EST Encounter for annual routine gynecological examination Vagina itching WET PREP, GENITAL Routine 07/30/2024 1:5 3 PM EST Encounter for annual routine gynecological examination Vagina itching ANNUAL BMP BLOOD TEST Routine 03/26/2024 DIAGNOSTIC MAMMOGRAPHY INCLUDING CAD BILATERAL Routine 12/24/2023 10:27 AM EDT Unspecified lump in the right breast, upper outer quadrant LIPID PANEL Routine 11/19/2023 DEPRESSION SCREENING Routine 11/15/2023 HIV SCREENING Routine 09/08/2022 HEPATITIS C SCREENING Routine 11/04/2021 from Last 3 Months or Most Recently Relevant to Health Maintenance Results * HPV with reflex genotype (07/30/2024 1:53 PM EST) HPV Negative Negative LAB MICROBIOLOGY METHOD 07/31/2024 3:14 PM EST [facility] Brushing/Spatula Cervix uteri structure / Unknown 07/30/2024 1:53 PM EST 07/31/2024 7:17 AM EST J[facility]IT[facility] MOLECULAR DIAGNOSTICS ORDER ROBERTO CARLOS Final Result Performing Organization Address City/[facility]/ZIP Co de Phone Number [facility] [address] [place] [address], [place] [phone] * Trichomonas vaginalis antigen (07/30/2024 1:53 PM EST) Trichomonas vaginalis Negative Negative 07/30/2024 8:44 PM EST [facility] Swab Vaginal structure / Unknown Non-blood Collection / Unknown 07/30/2024 1:53 PM EST 07/30/2024 1:53 PM EST Jolanta [facility]REIT[facility] MICROBIOLOGY - GENERAL ORDE RABLES Final Result [facility] [address] [place] [address], [place] [phone] * Wet prep, genital (07/30/2024 1:53 PM EST) Clue Cells, Wet Prep Negative Negative 07/30/2024 7:42 PM EST [facility] Yeast, Wet Prep Negative Negative 07/30/2024 7:42 PM EST [facility] Trichomonas, Wet Prep Indeterminate Negative 07/30/2024 7:42 PM EST [facility] Comment:Refer to Trichomonas antigen. Swab Vaginal structure / Unknown Non-blood Collection / Unknown 07/30/2024 1:53 PM EST 07/30/2024 1:53 PM EST Jolanta [facility] MICROBIOLOGY - GENERAL ORDDiana VALENCIA Final Result [facility] [address] [place] [address], * Pap smear (07/30/2024 1:53 PM EST) Interpretation Negative for intraepithelial lesion or malignancy 08/01/2024 10:08 AM [facility] General Categorization Negative 08/01/2024 10:08 AM [facility] LMP 07/29/2024 08/01/2024 10:08 AM [facility] Specimen Adequacy Satisfactory for evaluation, endocervical/prince sformation zone component present 08/01/2024 10:08 AM [facility] Pap Methodology Liquid Based Pap Test 08/01/2024 10:08 AM [facility] Disclaimer The Pap test is a screening test which carries an inherent false negative rate. These test results should be correlated with the patient's clinical findings and history. This Pap test was processed using an automated screening system. Technical cytopathology services provided by [facility], at [address] [place] [id number] (CLIA # [id number]/Rita Roger MD, Learning Officer.) 08/01/2024 10:08 AM [facility] Console Pap Interpretation Reported 08/01/2024 10:08 AM [facility] Brushing/Spatula Cervix uteri structure / Unknown 07/30/2024 1:53 PM EST 07/30/2024 1:53 PM EST Jolanta Bruce [facility] CYTOLOGY ORDERABLES Final R esult [facility] [address] [place] [address], * Annual BMP Blood Test (03/26/2024) Annual BMP Blood Test Abstracted Historical Provider MD HEALTH MAINTENANCE Final Result * DIAGNOSTIC MAMMOGRAPHY INCLUDING CAD BILATERAL (12/24/2023 10:27 AM EDT) Anatomical Region Laterality Modality Mammography 11/15/2023 11:3 3 AM EDT Narrative 12/24/2023 10:54 AM EDT This is a summary report. The complete report is available in the patient's medical record. If you cannot access the medical record, please contact the sending organization for a detailed fax or copy. Bilateral mammogram. History lump in the upper outer right breast. Full-field 2D C views and 3D tomosynthesis mammograms were obtained as well as spot compression views of the right breast in CC and MLO projections. ??Marker was placed over the area of concern in the upper outer right breast. Breast tissue is of mixed density. There is approximately 7.6 mm lobulated mass in the upper outer right breast, visualized on all images. ??There is no other masses, suspicious calcifications or areas of architectural distortion. Targeted ultrasound of the right breast. Examination was directed by the patient to the area of concern. ??Entire upper outer right breast was scanned. ??No cystic or solid masses or acoustic shadowing identified. Conclusions: Lobulated mass on the mammogram without ultrasonographic correlation. ??Findings were explained to the patient. ??She was suggested to have stereotactic core biopsy. ??However patient declined the biopsy. ??Instead she would like to have short-term follow-up examination. ??3 months follow-up mammogram was scheduled. BI-RADS 4 ,Suspicious abnormality. Procedure Note Rokhlenko, Mahi, MD - 03/26/2024 This is a summary report. The complete report is available in thepatient's medical record. If you cannot access the medical record, pleasecontact the sending organization for a detailed fax or copy. Bilateral mammogram. History lump in the upper outer right breast. Full-field 2D C views and 3D tomosynthesis mammograms were obtained aswell as spot compression views of the right breast in CC and MLOprojections. Marker was placed over the area of concern in the upperouter right breast. Breast tissue is of mixed density. There is approximately 7.6 mm lobulated mass in the upper outer rightbreast, visualized on all images. There is no other masses, suspiciouscalcifications or areas of architectural distortion. Targeted ultrasound of the right breast. Examination was directed by the patient to the area of concern. Entireupper outer right breast was scanned. No cystic or solid masses oracoustic shadowing identified. Conclusions: Lobulated mass on the mammogram without ultrasonographiccorrelation. Findings were explained to the patient. She was suggestedto have stereotactic core biopsy. However patient declined the biopsy.Instead she would like to have short-term follow-up examination. 3 monthsfollow-up mammogram was scheduled. BI-RADS 4 ,Suspicious abnormality. Result [facility] Jolene POTTER IMG BI PROCEDURES Final Result * (ABNORMAL) Lipid panel (11/19/2023) [facility] [address] LDL/HDL Ratio 4 0 - 4 Triglycerides 185(A) 0 - 150 mg/dL Cholesterol 199 0 - 200 mg/dL HDL 51 >=40 mg/dL LDL Cholesterol 111(A) 0 - 100 mg/dL Blood Venous blood specimen / Unknown Result [facility] Historical Provider LAB BLOOD ORDERABLES Avril l Result * Depression Screening (11/15/2023) [facility] Depression Screening Abstracted Result [facility] Historical Provider HEALTH MAINTENANCE Final Result * HIV Screening (09/08/2022) HIV Screening Abstracted Historical Provider HEALTH MAINTENANCE Final Result * Hepatitis C Screening (11/04/2021) Hepatitis C Screening Abstracted Historical Provider HEALTH MAINTENANCE Final Result from Last 3 Months or Most Recently Relevant to Health Maintenance Insurance [facility] [employer] Care Teams Health Commissioner Relationship Specialty Start Date End Date Lydia Gallegos MD [address] [place] [id number] PCP - General 04/12/22
--- OUTSIDE RECORDS SUMMARY | 2024-08-01 12:05 | XMS_ITS | Encounter Summary ---
Author Organization [facility] Address [address] [place] [address] Care Team Providers Care Programs Assistant Name Role Phone Lydia Gallegos MD Primary Care Prov ider Reason for Referral * Imaging (Routine) - Authorized Specialty Diagnoses / Procedures Referred By Juve hummel Referred To Contact Radiology Diagnoses Encounter for annual routine gynecological examination Screening mammogram for breast cancer Mammogram abnormal Procedures MG Mammo Digital Diagnostic Right Jolanta Bruce CNM [address] [place] [address] Phone: tel: fax: [facility] Referral ID Status Reason Start Date Expiration Date V isits Requested Visits Authorized [id number] Authorized 07/30/2024 07/30/2025 1 1 Reason for Visit * Reason Comments Annual Exam Encounter Details Date Type Department Care Team (Late st Contact Info) Description 07/30/2024 1:30 PM EST Office Visit Obstetrics and Gynecology - [address] [phone] Jolanta Bruce CNM [address] [place] [phone] Encounter for annual routine gynecological examination (Primary Dx); Screening mammogram for breast cancer; Mammogram abnormal; Papanicolaou smear of cervix with positive high risk human papilloma virus (HPV) test; Vagina itching Social History Tobacco Use Types Packs/Day Years [...] on file Sexual Orientation Not on file documented as of this encounter Last Filed Vital Signs Vital Sign Reading [...] Mass Index 27.98 07/30/2024 1:33 PM EST documented in this encounter Progress Notes * Jolanta Bruce CNM - 07/30/2024 1:30 PM EST VULVAR SKIN CARE GUIDELINES NOTE: The goal is to promote healthy vulvar skin. This is done by decreasing and removing chemicals, moisture, or rubbing (friction). Products listed below have been suggested for use because of their past success in helping to decrease or relieve vulvar/vaginal burning, irritation, or itching. LAUNDRY PRODUCTS 1. Use the detergent brand ALL FREE CLEAR on all laundry that goes into your washer, every load, every time. NO SUBSTITUTIONS. Use 1/3 to ?? the suggested amount per load. 2. Do not use fabric softeners or dryer sheets in the washer or dryer, even those advertised as ???free?? . If you use a shared washer or dryer, such as a laundromat, apartment, or dorm you must handwash, in ALL FREE CLEAR and line dry your underwear . You can use dryer balls to help soften clothes. 3. Stain removing products (including bleach). Soak and rinse in clear water all underwear and towels on which you have used a stain removing product. Then wash in your regular washing cycle using ALL FREE CLEAR. This removes as much of the product as possible. White vinegar or lemon juice, 1/4 to 1/3 cup per laundry load, can be used to freshen clothing and remove oils. CLOTHING 1. Wear white all cotton underwear, not nylon with a cotton crotch. Cotton allows air in and moisture out. Do not wear underwear when sleeping at night. Do not wear thongs. Loose fitting cotton boxers or cotton pajama bottoms are fine. 2. Avoid pantyhose. If you must wear them, either cut out the fortino crotch (if you cut out the crotch be sure to leave about 1/4 inch of fabric from the seam to prevent running) or wear thigh high hose. Many stores now carry thigh high hose. 3. Avoid tight clothing, especially clothing made of synthetic fabrics. Remove wet bathing and exercise clothing as soon as you can. BATHING AND HYGIENE 1. Do not use bath soaps, lotions, gels, etc. which contain perfumes. These may smell nice, but canbe irritating. This includes many baby products and feminine hygiene products marked gentle or mild . DOVE FOR SENSITIVE SKIN, NEUTROGENA, BASIS, AVEENO, OR PEARS are the soaps we suggest. Your partner needs to use one of these soaps also. Do not use soap directly on the vulvar skin. Just warm wa ter and your hand will keep the vulvar area clean without irritating the skin. 2. Do not use bubble bath, bath salts, and scented oils. You may apply a neutral (unscented, non-perfumed) oil or lotion to damp skin after getting out of the tub or shower. Do not apply lotion directly to the vulva. 3. Do not scrub vulvar skin with a washcloth, washing with your hand and warm water is enough for good cleaning. 4. Pat dry rather than rubbing with a towel. Or, use a mathematics department chair on a cool setting to dry the vulva. 5. Baking Soda soaks. Soak in lukewarm (not hot) bath water with 4-5 tablespoons of baking soda to help soothe vulvar itching and burning. Soak 1 to 3 times a day for 10 minutes. If you are using a sitz bath, use 1 to 2 teaspoons of baking soda. 6. Use white, unscented toilet paper. Do not use toilet paper with aloe. 7. Do not use feminine hygiene sprays, perfumes, adult, or baby wipes. You can use Water Wipes or Tucks hemorrhoid pads to clean if you feel the need. If urine causes burning of the skin, pour lukewarm water over the vulva while urinating. Pat dry rather than wiping. 8. Do not use deodorized pads and tampons. Tampons may be used when the blood flow is heavy enough to soak one tampon in four hours or less. Tampons are safe for most women, but wearing them too longor when the blood flow is light may result in vaginal infection, increased discharge, odor, or toxic shock syndrome. Also, use only pads that have a cotton liner, not nylon mesh weave, that comes in contact with your skin. Nylon traps moisture and keeps blood and discharge against your skin longer.Cotton unscented pads STAYFREE, CAREFREE, or 7th GENERATION. 9. Do not use dkgn-fgw-odqyqhx creams or ointments until you ask your health care provider. When buying ointments, be sure that they are paraben and fragrance-free. 10. Small amounts of coconut oil, extra virgin olive oil, vegetable oil, zinc oxide ointment, or plain Vaseline may be applied to your vulva as often as needed to protect the skin. It also helps to decrease skin irritation during your period and when you urinate. 11. Do not douche. Baking soda soaks or rinsing with warm water will help rinse away extra discharge and help with odor. 12. Do not shave or use hair removal products on the vulvar area. You may use scissors to trim the pubic hair close to the vulva. Laser hair removal is an option. 13. Some women may have problems with chronic dampness. Keeping dry is important. Do not wear pads on a daily basis. Choose cotton fabrics whenever you can. Keep an extra pair of underwear with you and change if you become damp. GOLD CURTIS or ZEASORB powder may be applied to the groin area 1 to 2 times per day to help absorb moisture. Do not use powders that contain cornstarch. 14. Dryness and irritation during intercourse may be helped by using a lubricant. Use a small amount of a pure vegetable oil (solid, liquid, or extra virgin olive oil). These oils contain no chemicals to irritate vulvar/vaginal skin. Vegetable oils will rinse away with water and will not increase your chances of infection. Void-cfs-lfbiidn water-based lubricants tend to dry out before intercourseis over, causing small tears in the vagina, and may also contain chemicals that can irritate your vulvar skin. It may be helpful to use a non-lubricated, non-spermicidal condom, and use vegetable oilas the lubricant. This will help keep the semen off the skin which can decrease burning and irritation after intercourse. CONTROL OPTIONS 1. control pills do not increase your chances of getting a yeast infection. 2. Lubricated condoms, contraceptive jellies, creams, or sponges may cause itching and burning. 3. The use of latex condoms with a vegetable oil as a lubricant (#14 above) is suggested to protectyour skin. Petroleum-based lubricants may affect the integrity of condoms when used for control or prevention of sexually transmitted infections. Our experience has not found this to be a problem with vegetable-based oils. However, the Centers for Disease Control recommend that condoms not beused with any oil-based lubricants for control or prevention of sexually transmitted disease. * Jolanta Bruce CNM - 07/30/2024 1:30 PM EST CHIEF COMPLAINT: Annual Exam IDENTIFIER:Ginger Case is a 49 y.o. female. HPI: Ginger has been in state of Good health since her last exam. She has the following concerns recurrent yeast infections . She reports itching and thick discharge today. Feels her yeast infections arer/t her use of toys . Currently single not sexually active. Patient's last menstrual period was 07/29/2024.. regular menses lasting 5 days. Once in a while can get it 2 x a month. Using none for contraception and likes this method of contraception. She denies any bothersome side effects. She has no concerns of STD's andfeels safe with her partner. Patient is not sexually active, would not like STI testing today. LAST PAP- 07/06/23 Negative/Positive HPV LAST MAMMOGRAM- 12/23/2023 dx mamm Birads 4 patient declined biopsy ROS: GENERAL: No weight loss or fever RESPIRATORY: No cough, wheezing or shortness of breath CARDIOVASCULAR: No chest pain, leg swelling or palpitations BREAST: no lumps, discharge, pain or change in skin GI: No abdominal discomfort, nausea or vomiting : No dysuria, frequency or incontinence OPEN DIE INSPECTOR: No abnormal vaginal bleeding or abnormal vaginal discharge. 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 Prediabetes Papanicolaou smear of cervix with positive high risk human papilloma virus (HPV) test Medullary sponge kidney Marijuana use Kidney stones Iron deficiency HTN (hypertension), benign Dysuria Abnormal mammogram Past Surgical History: Procedure Laterality Date SECTION PROCEDURE: [place] DELIVERY ONLY; COMMENT: x2 ECTOPIC SURGERY 11/2015 PROCEDURE: HISTORICAL ECTOPIC SURGERY HERNIA REPAIR Right PROCEDURE: HISTORICAL HERNIA REPAIR/ING KIDNEY STONE SURGERY PROCEDURE: [place] NEPHROLITHOTOMY REMOVAL CALCULUS; COMMENT: [facility] OTHER SURGICAL HISTORY 10/20/2019 PROCEDURE: [place] PYELOTOMY WITH REMOVAL CALCULUS; COMMENT: attempted removal of stone by dr. wang unsuccessful SOCIAL HISTORY: Social History Tobacco Use Smoking status: Former Current packs/day: 0.00 Types: Cigarettes Quit date: 06/11/1999 Years since quittin.1 Smokeless tobacco: Never Substance Use Topics Alcohol use: Yes FAMILY HISTORY: Family History Problem Relation Name Age of Onset Hyperlipidemia Mother Hypertension Mother No Known Problems Father Hypertension Sister Other (Other: Prediabetes) Sister Fraternal Twin Hypertension Brother Hyperlipidemia Brother Hypertension Brother Hyperlipidemia Brother Diabetes Maternal Grandmother Alzheimer's disease Maternal Grandmother No Known Problems Maternal Grandfather Diabetes Paternal Grandmother No Known Problems Paternal Grandfather No Known Problems Daughter No Known Problems Daughter No Known Problems Son Heart attack Neg Hx Stroke Neg Hx Colon cancer Neg Hx Ovarian cancer Neg Hx Breast cancer Neg Hx Pancreatic cancer Neg Hx Prostate cancer Neg Hx MEDICATIONS: There are no discontinued medications. ACTIVE MEDICATIONS: Outpatient Medications Marked as Taking for the 07/30/24 encounter (Office Visit) with Jolanta Burce CNM Medication Sig Dispense Refill allopurinoL (ZYLOPRIM) 100 mg tablet Take 1 Tablet by mouth daily. amLODIPine (NORVASC) 2.5 mg tablet TAKE 1 TABLET BY MOUTH EVERY DAY 90 tablet 1 cholecalciferol, vitamin D3, (D3-50 CHOLECALCIFEROL ORAL) Take by mouth. cyanocobalamin-cobamamide (B-12 Plus) 5,000-100 mcg tablet, sublingual Place under the tongue. ferrous gluconate (FERGON) 324 mg (38 mg iron) tablet TAKE 1 TABLET BY MOUTH DAILY (WITH BREAKFAST)FOR 90 DAYS. 90 tablet 1 LORazepam (ATIVAN) 0.5 mg tablet Take 1 Tablet by mouth. I have reviewed the following sections of the chart: Medical, surgical, family, social and OB history PHYSICAL EXAM: Visit Vitals BP 133/80 Pulse 70 Ht 1.575 m (62 ) Wt 69.4 kg (153 lb) LMP 07/29/2024 BMI 27.98 kg/m?? OB Status Having periods Smoking Status Former BSA 1.71 m?? APPEARANCE: Alert and in no acute distress, Normal HEART: RRR with normal S1 and S2 , LUNG: clear to auscultation BREAST (FEMALE): Symmetrical, normal consistency without masses or adenopathy LYMPH NODES: grossly normal ABDOMEN: soft, non-tender, without organomegaly or palpable masses OPEN DIE INSPECTOR (FEMALE): OPEN DIE INSPECTOR: Normal external genitalia and urethra Vagina without abnormality Normal cervix, no polyps Uterus with normal size, position, and consistency Normal adnexa without tenderness No CMT noted No vaginal odor or vaginal discharge noted RECTAL (FEMALE): Anus normal EXTREMITIES: Extremities normal NEURO: Awake, alert and oriented x 3 SKIN: Skin color, texture, turgor normal. No rashes or lesions. LABS/Imaging NA IMPRESSION: 1. Encounter for annual routine gynecological examination 2. Screening mammogram for breast cancer 3. Mammogram abnormal 4. Papanicolaou smear of cervix with positive high risk human papilloma virus (HPV) test 5. Vagina itching PLAN: Orders Placed This Encounter Procedures Wet prep, genital MG Mammo Digital Diagnostic Right Pap smear During the visit, the following areas of concern were addressed: Importance of Adequate Vitamin D and Calcium Intake for Bone Health, Family History Reviewed and Hereditary Cancer Screening is not Indicated, Breast Cancer Screening Guidelines Reviewed, Cervical Cancer Screening Guidelines Reviewed, and Colon Cancer Screening Guidelines Reviewed Per current asccp guidelines pap smear with cotesting due and collected today She was encouraged to schedule her follow up dx mammogram We discussed prevention and treatment. Will treat pending wet smear results RTO in 1 year for annual exam or PRN Jolanta Bruce CNM documented in this encounter Plan of Treatment Upcoming Encounters Date Type Department Care Team (Late st Contact Info) Description 12/16/2024 2:00 PM EDT Office Visit [address] [phone] Lydia Gallegos MD [address] [place] [phone] Scheduled Orders Name Type Priority Associated Diagnoses Orde r Schedule MG Mammo Digital Diagnostic Right Imaging Routine Encounter for annual routine gynecological examination Screening mammogram for breast cancer Mammogram abnormal Expected: 07/30/2024, Expires: 07/30/2025 documented as of this encounter Procedures Procedure Name Priority Date/Time Associated Diagnosis Comments HPV WITH REFLEX GENOTYPE Routine 07/30/2024 1:53 PM EST Encounter for annual routine gynecological examination Screening mammogram for breast cancer Mammogram abnormal TRICHOMONAS VAGINALIS ANTIGEN Routine 07/30/2024 1:53 PM EST Encounter for annual routine gynecological examination Vagina itching WET PREP, GENITAL Routine 07/30/2024 1:5 3 PM EST Encounter for annual routine gynecological examination Vagina itching PAP SMEAR Routine 07/30/2024 1:53 PM EST Encounter for annual routine gynecological examination Screening mammogram for breast cancer Mammogram abnormal documented in this encounter Results * HPV with reflex genotype (07/30/2024 1:53 PM EST) HPV Negative Negative LAB MICROBIOLOGY METHOD 07/31/2024 3:14 PM EST [facility] Brushing/Spatula Cervix uteri structure / Unknown 07/30/2024 1:53 PM EST 07/31/2024 7:17 AM EST Jolanta FREITAS LAB MOLECULAR DIAGNOSTICS ORDER ROBERTO CARLOS Final Result [facility] [address] [place] [address], [place] [phone] * Trichomonas vaginalis antigen (07/30/2024 1:53 PM EST) Trichomonas vaginalis Negative Negative 07/30/2024 8:44 PM EST [facility] Swab Vaginal structure / Unknown Non-blood Collection / Unknown 07/30/2024 1:53 PM EST 07/30/2024 1:53 PM EST Jolanta FREITAS LAB MICROBIOLOGY - GENERAL ORDE RABLES Final Result Performing Organization Address City/[facility]/ZIP Co de Phone Number [facility] [address] [place] [address], [place] [phone] * Wet prep, genital (07/30/2024 1:53 PM EST) Clue Cells, Wet Prep Negative Negative 07/30/2024 7:42 PM EST [facility] Yeast, Wet Prep Negative Negative 07/30/2024 7:42 PM EST [facility] Trichomonas, Wet Prep Indeterminate Negative 07/30/2024 7:42 PM EST [facility] Comment:Refer to Trichomonas antigen. Swab Vaginal structure / Unknown Non-blood Collection / Unknown 07/30/2024 1:53 PM EST 07/30/2024 1:53 PM EST Jolanta FREITAS LAB MICROBIOLOGY - GENERAL ZACH VALENCIA Final Result [facility] [address] [place] [address], * Pap smear (07/30/2024 1:53 PM EST) Interpretation Negative for intraepithelial lesion or malignancy 08/01/2024 10:08 AM [facility] General Categorization Negative 08/01/2024 10:08 AM [facility] LMP 07/29/2024 08/01/2024 10:08 AM [facility] Specimen Adequacy Satisfactory for evaluation, endocervical/prince sformation zone component present 08/01/2024 10:08 AM [facility] Pap Methodology Liquid Based Pap Test 08/01/2024 10:08 AM [facility] Disclaimer The Pap test is a screening test which carries an inherent false negative rate. These test results should be correlated with the patient's clinical findings and history. This Pap test was processed using an automated screening system. Technical cytopathology services provided by [facility], at [address] [place] [id number] (CLIA # [id number]/Rita Roger MD, High Climber.) 08/01/2024 10:08 AM [facility] Console Pap Interpretation Reported 08/01/2024 10:08 AM [facility] Brushing/Spatula Cervix uteri structure / Unknown 07/30/2024 1:53 PM EST 07/30/2024 1:53 PM EST us Jolanta Bruce CNM LAB CYTOLOGY ORDERABLES Final R esult [facility] ([facility]) [facility] [address] [place] [address], documented in this encounter Visit Diagnoses Diagnosis Encounter for annual routine gynecological examination- Primary Screening mammogram for breast cancer Mammogram abnormal Abnormal mammogram, unspecified Papanicolaou smear of cervix with positive high risk human papilloma virus (HPV) test Vagina itching Pruritus of genital organs documented in this encounter Care Teams Programs Assistant Relationship Specialty Start Date End Date Lydia Gallegos MD [address] [place] [phone] PCP - General 04/12/22 documented as of this encounter
== END 2024-08-01 11:57 | disposition home or self-care (01) ==
PROVIDERS: Visit Provider Urology
DX: N20.2 Calculus of kidney with calculus of ureter (principal)
CPT/HCPCS: 99214

== ENCOUNTER 2024-10-16 10:15 | Outpatient (REF) | payer OTHER, SELFPAY ==
[2024-10-16 10:31] LABS: MANUAL DIFF FLAG NO
[2024-10-16 10:59] LABS: Basophils Absolute Auto 0.1 X10*3/uL (0.0-0.2); Basophils Percent Auto 0.6 % (0-2); Eosinophils Absolute Auto 0.2 X10*3/uL (0.0-0.4); Eosinophils Percent Auto 2.5 % (0-4); Hematocrit 33.1 % (37.0-47.0); Hemoglobin 9.6 g/dl (12.0-16.0); Imm Gran Abs Auto 0.04 X10*3/uL (0.00-0.03); Imm Gran Pct Auto 0.4 % (0.0-0.4); Lymphocytes Absolute Auto 1.9 X10*3/uL (1.2-4.9); Lymphocytes Percent Auto 20.8 % (20-40); Mean Corpuscular Hemoglobin 21.5 pg (27.0-33.0); Mean Corpuscular Volume 74.2 fL (80.0-98.0); Mean Platelet Volume 10.1 fL (9.4-12.3); Monocytes Absolute Auto 0.9 X10*3/uL (0.1-1.2); Monocytes Percent Auto 9.4 % (2-11); Neutrophils Absolute Auto 6.1 x10*3/uL (2.0-8.3); Neutrophils Percent Auto 66.3 % (45-73); Platelet Count 437 X10*3/uL (160-400); Red Blood Count 4.46 X10*6/uL (4.20-5.50); Red Cell Distribution Width 20.5 % (11.0-16.0); White Blood Count 9.2 X10*3/uL (4.8-10.8)
[2024-10-16 11:17] LABS: Appearance Urine Clear; Color Urine Yellow; Glucose Urine UA Negative (Negative); Leukocyte Esterase Urine Moderate (2+) (Negative); Nitrite Urine Negative (Negative); Specific Gravity - Urine 1.015 (1.005-1.025); UMIC TRIGGER UA YES; Urine Blood Trace (Negative); Urine Ketones Negative (Negative); Urine Protein 100 (2+) mg/dL (Neg-Trace)
[2024-10-16 11:23] LABS: Bacteria Urine 1+ (None Seen); Hyaline Casts Urine 0-2 /LPF (0-2); RBC Urine 0-2 /HPF (0-2); WBC Urine 21-50 /HPF (0-5)
[2024-10-16 11:27] LABS: Parathyroid Hormone Intact 172.7 pg/mL (8.7-77.1)
[2024-10-16 11:31] LABS: Anion Gap 11 (12-20); Blood Urea Nitrogen 17 mg/dL (9-16); Calcium 9.6 mg/dL (8.4-10.2); Carbon Dioxide 27 mmol/L (22-29); Chloride 104 mmol/L (96-108); Estimated Glomerular Filt Rate 47; Iron 18 mcg/dL (30-160); Percent Iron Saturation 5 % (15-50); Potassium 4.4 mmol/L (3.3-5.1); Sodium 138 mmol/L (135-145); Total Iron Binding Capacity 359 mcg/dL (228-428); Unsaturated Iron Binding 341 ug/dL; Uric Acid 7.5 mg/dL (2.4-5.7)
--- OUTSIDE RECORDS SUMMARY | 2024-10-16 11:31 | XMS_ITS | Encounter Summary ---
Author Organization [email or web address] Address [address] [place] [address] Care Team Providers Care Opal Polisher Name Role Phone Lydia Gallegos MD Primary Care Prov ider Reason for Visit * Reason Onset Date Comments Hypertension 10/15/2024 Encounter Details Date Type Department Care Team ([facility] st Contact Info) Description 10/15/2024 Telephone Adult Medicine [address] [phone] Lydia Gallegos MD [address] [place] [phone] Hypertension Social History Tobacco Use Types Packs/Day Years Used Date Smoking Tobacco: Former Cigarettes Q uit: 06/11/1999 Smokeless Tobacco: Never Quit: 06/11/2003 Alcohol Use Standard Drinks/Week Comments Yes 0 (1 standard drink = 0.6 oz pur e alcohol) Comments No Sex and Gender Information Value Date Recorded Sex Assigned at Not on file Legal Sex Female 8:19 PM EST Gender Identity Not on file Sexual Orientation Not on file documented as of this encounter Progress Notes * George Deng RN - 10/15/2024 12:16 PM EDT Called and spoke with pt. Pt c/o elevated bp for the past two weeks from 140-160/105-111. Today is 163/111 pt is c/o episodes of blurred vision and chest pain at night none now. No headache no dizziness. Pt is c/o c/o bilat flank pain concerned of kidney stones or worsening kidney disease pt has hxof CKD. Pt advised to go to er for evaluation * Whit hCávez - 10/15/2024 11:54 AM EDT Patient returning phone call * Philly Vital RN - 10/15/2024 11:50 AM EDT Left vm for pt to return my call. * Kristy Coleman - 10/15/2024 10:43 AM EDT Patient calling stating she has elevated BP for about week and a half. Please advise documented in this encounter Plan of Treatment Upcoming Encounters Date Type Department Care Team (Late st Contact Info) Description 12/16/2024 2:00 PM EDT Office Visit Adult Medicine [address] [phone] Lydia Gallegos MD [address] [place] [address] documented as of this encounter Visit Diagnoses Not on filedocumented in this encounter Care Teams Opal Polisher Relationship Specialty Start Date End Date Lydia Gallegos MD [address] [place] [address] PCP - General 04/12/22 documented as of this encounter
--- OUTSIDE RECORDS SUMMARY | 2024-10-16 11:31 | XMS_ITS | Clinical Summary ---
Author Organization [address] Address [address] [place] [phone] Phone Care Team Providers Care Press Tender Incendiary Grenade Name Role Phone Lydia Gallegos MD Primary Care Prov ider Allergies Active Allergy Reactions Criticality Noted Date Comments Hydrochlorothiazide 03/26/2024 Caused SHREYA and stone per [facility] hospital admission in 03/2024 Reaction Type: Side [...] times daily for 10 days. 4 Active LORazepam (ATIVAN) 0.5 mg tablet Take [...] EVERY DAY 90 tablet 1 5 Active ergocalciferol (VITAMIN D-2) 1,250 mcg (50,000 unit) capsule Take 1 Capsule by mouth. 4 10/01/19 25 Active Problems Problem Noted Date Diagnosed Date Kidney stones 03/28/2024 Overview (03/28/2024): Since she was 29 years old, Dr. Estevez Abnormal mammogram 12/24/2023 Overview (03/28/2024): 12/24/2023: ?? Conclusions: Lobulated mass on the mammogram without ultrasonographic correlation. Findings were explained to the patient. She was suggested to have stereotactic core biopsy. However patient declined the biopsy. Instead she would like to have short-term follow-up examination. 3 months follow-up mammogram was scheduled. BI-RADS 4 ,Suspicious abnormality. Stage 3a chronic kidney disease (CMS/HCC V24, CM S/HCC V28) 09/07/2023 Papanicolaou smear of cervix with positive [...] 11/01/2018 Recurrent UTI 07/02/2018 Overview (03/28/2024): Dr. Estevez HTN (hypertension), benign 02/05/2018 Medullary sponge kidney 11/12/2017 Overview (03/28/2024): Dr. Schroeder - nephrology Dr. 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 Encounters Date Type Department Care Team Description 10/15/2024 Telephone Adult Medicine East - [address] [phone] Lydia Warner MD Hypertension 07/30/2024 1:30 PM EST Office Visit Obstetrics and Gynecology - [address] [phone] Jolanta rBuce, FUAD Encounter for annual routine gynecological examination (Primary [...] History Surgery Date Site/Laterality Comments SECTION PROCEDURE: NM DELIVERY ONLY; COMMENT: x2 KIDNEY STONE SURGERY PROCEDURE: NM NEPHROLITHOTOMY REMOVAL CALCULUS; COMMENT: [facility] ECTOPIC SURGERY 11/2015 PROCEDURE: HISTORICAL ECTOPIC SURGERY HERNIA REPAIR Right PROCEDURE: HISTORICAL HERNIA REPAIR/ING OTHER SURGICAL HISTORY 10/20/2019 PROCEDURE: NM PYELOTOMY WITH REMOVAL CALCULUS; COMMENT: attempted removal of stone by dr. estevez unsuccessful Medical History Medical History Date Comments [...] 2:00 PM EDT Office Visit Adult Medicine [facility] [address] [place] [phone] Lydia Gallegos MD [address] [place] [address] Health Maintenance Due Date Last Done Comments Hepatitis B Vaccines (1 of 3 - 19+ 3-dose series) 1996 Colorectal Cancer Screening: Colonoscopy 05/20/2022 Social Influencers of Health Screening 05/20/2022 COVID-19 Vaccine (4 - 2023-2 5 season) 2024 08/24/2021, 03/16/2021, 02/11/2021 Breast Cancer Screening 03/25/2024 12/24/19 24, 12/24/2023 Depression Screening 11/14/2024 11/15/2023 Influenza Vaccine (Season Ended) 2025 06/22/2014, 03/31/2011 Hypertension/CHF/CAD Annual BMP Blood Test 03/26/2025 03/26/2024, 03/26/2024, 11/19/2023 Cholesterol Screening (Lipid Panel) 11/18/2028 11/19/2023, 11/19/2023 [...] age to complete this topic Meningococcal B Vaccine Aged Out No l onger eligible based on patient's age to complete [...] LAB MICROBIOLOGY METHOD 07/31/2024 3:14 PM EST [facility] Brushing/Spatula Cervix uteri structure / Unknown 07/30/2024 1:53 PM EST 07/31/2024 7:17 AM EST Jolanta Bruce CNM LAB MOLECULAR DIAGNOSTICS ORDER ROBERTO CARLOS Final Result Performing Organization Address City/[facility]/ZIP Co de Phone Number [facility] [address] [place] [address], [place] [phone] * Trichomonas vaginalis antigen (07/30/2024 1:53 PM EST) Pathologist [facility] Trichomonas vaginalis Negative Negative 07/30/2024 8:44 PM EST [facility] Swab Vaginal structure / Unknown Non-blood Collection / Unknown 07/30/2024 1:53 PM EST 07/30/2024 1:53 PM EST Jolanta Bruce CNM LAB MICROBIOLOGY - GENERAL ORDE RABLES Final Result [facility] [address] [place] [address], [place] [phone] * Wet prep, genital (07/30/2024 1:53 PM EST) Clue Cells, Wet Prep Negative Negative 07/30/2024 7:42 PM EST [facility] Yeast, Wet Prep Negative Negative 07/30/2024 7:42 PM EST [facility] Trichomonas, Wet Prep Indeterminate Negative 07/30/2024 7:42 PM [facility] Comment:Refer to Trichomonas antigen. Swab Vaginal structure / Unknown Non-blood Collection / Unknown 07/30/2024 1:53 PM EST 07/30/2024 1:53 PM EST Jolanta Christiansonnz [facility] MICROBIOLOGY - GENERAL ORDDiana VALENCIA Final Result [facility] [address] [place] [address], * Pap smear (07/30/2024 1:53 PM EST) [...] screening system. Technical cytopathology services provided by [facility], at [address] [place] [address] (CLIA # [id number]/Rita Roger MD, Temperature Regulator.) 08/01/2024 10:08 AM [facility] Console Pap Interpretation Reported 08/01/2024 10:08 AM [facility] Brushing/Spatula Cervix uteri structure / Unknown 07/30/2024 1:53 PM EST 07/30/2024 1:53 PM EST Jolanta FREITAS LAB CYTOLOGY ORDERABLES Final R esult [facility] [address] [place] [address], [place] [phone] * Annual BMP Blood Test (03/26/2024) Annual [...] scheduled. BI-RADS 4 ,Suspicious abnormality. Procedure Note Mahi Santos MD - 10/16/2024 This is a summary report. The complete [...] was scheduled. BI-RADS 4 ,Suspicious abnormality. Result [facility] Jolene POTTER IMG BI PROCEDURES Final Result * (ABNORMAL) Lipid panel (11/19/2023) [facility] LDL/HDL Ratio 4 0 - 4 Triglycerides 185(A) 0 - 150 mg/dL Cholesterol 199 0 - 200 mg/dL HDL 51 >=40 mg/dL LDL Cholesterol 111(A) 0 - 100 mg/dL Blood Venous blood specimen / Unknown Result [facility] Provider LAB BLOOD ORDERABLES Avril l Result * Depression Screening (11/15/2023) [facility] Depression Screening Abstracted Result [facility] Provider HEALTH MAINTENANCE Final Result * HIV Screening (09/08/2022) [facility] HIV Screening Abstracted Result [facility] Provider HEALTH MAINTENANCE Final Result * Hepatitis C Screening (11/04/2021) Hepatitis C Screening Abstracted us Historical Provider HEALTH MAINTENANCE Final Result from Last 3 Months or Most Recently Relevant to Health Maintenance Insurance [facility] Care Teams Press Tender Incendiary Grenade Relationship Specialty Start Date End Date Lydia Gallegos MD [address] [place] [address] PCP - General 04/12/22
[2024-10-16 11:47] LABS: Ferritin 6 ng/mL (10-250); Vitamin D 25-OH Total 24.5 ng/mL (>30)
[2024-10-16 12:03] LABS: Creatinine Urine 73.65 mg/dL; Protein/Creatinine Ratio, Ur 0.64 (<0.2); Total Protein Urine Random 47 mg/dL (<12)
== END 2024-10-16 10:16 | disposition home or self-care (01) ==
LOC: HO.LAB 10:15
PROVIDERS: Visit Provider Internal Medicine Nephrology
DX: E66.9 Obesity, unspecified (principal); N18.32 Chronic kidney disease, stage 3b; D63.1 Anemia in chronic kidney disease
CPT/HCPCS: 36415; 80051; 81001; 82306; 82310; 82565; 82570; 82728; 83540; 83970; 84156; 84520; 84550; 85025

== ENCOUNTER 2025-05-06 10:52 | Outpatient (REF) | payer OTHER, SELFPAY ==
--- NOTE | ~2025-05-06 | US_ITS ---
CLINICAL HISTORY: N20.0 - Calculus of kidney US Renal Comparison: US/HI/SR - US RENAL BI - 02/28/24 15:49 EDT Findings: Right kidney slightly decreased in size, 9.5 cm length. Exophytic cyst in the mid right kidney measuring up to 6 mm. Lower pole calculus measuring 1 cm. Atrophic kidney with echogenic medulla, medullary sponge kidney. Left kidney normal size, 11.7 cm length. Calculus in the mid left kidney measures up to 1.6 cm Echogenic renal medulla consistent with medullary sponge. Bilateral hydronephrosis. Normal color Doppler. IMPRESSION: 1. Bilateral hydronephrosis 2. Echogenic renal medulla, medullary sponge. 3. Bilateral renal calculi. This document has been electronically signed by: Evan Chambers MD, PHD on 05/07/2025 03:57:34
--- OUTSIDE RECORDS SUMMARY | 2025-05-06 13:20 | XMS_ITS | Encounter Summary ---
Author Organization [employer] Address [address] [place] [address] Care Team Providers Care Deputy District Customs Director Name Role Phone Lydia Gallegos MD Primary Care Prov ider Encounter Details Date Type Department Care Team (Late st Contact Info) Description 04/21/2025 Results Follow-Up Obstetrics and Gynecology - [address] [phone] Jolanta Bruce CN [address] [place] [address] Social History Tobacco Use Types Packs/Day Years Used Date Smoking Tobacco: Former Cigarettes 1 Q uit: 06/11/1999 Smokeless Tobacco: Never Quit: 06/11/2003 Alcohol Use Standard Drinks/Week Comments Yes 0 (1 standard drink = 0.6 oz pur e alcohol) Housing Instability Answer Date Recorde d Are you worried that in the next 2 months you may not have stable housing? No 12/16/2024 Food Access & Nutrition Answer Date Rec orded Do you have access to a vari ety of food including fruits and vegetables? Yes 12/16/2024 Access to Healthcare Answer Date Record ed Within the last 3 months, ho w many times did you visit the emergency department for your medical care? 0 12/16/2024 Health Literacy Answer Date Recorded How often do you need to hav e someone help you when you read instructions, pamphlets, or other written material from your doctor or pharmacy? Sometimes 12/16/2024 Caregiver: How often do you need to have someone help you when you read instructions, pamphlets, or other written material from your doctor or pharmacy? Not on file 12/16/2024 Financial Risk Answer Date Recorded How hard is it for you to pa y for the very basics like food, housing, medical care, and air conditioning / heating? Not very hard 12/16/2024 Transportation Answer Date Recorded Has the lack of transportati on kept you from meetings, work, or from getting things needed for daily living? No Has the lack of transportati on kept you from medical appointments or from getting medications? No 12/16/2024 Social Isolation Answer Date Recorded How often do you feel lonely or isolated from those around you? Sometimes 12/16/2024 Food Risk Answer Date Recorded Within the past 12 months we worried whether our food would run out before we got money to buy more. Never true 12/16/2024 Within the past 12 months th e food we bought just didn't last and we didn't have money to get more. Never true 12/16/2024 Dependent Care Answer Date Recorded Do you need help finding or paying for care for your loved ones. For example, child abuse worker or elderly care for an older adult? No 12/16/2024 Education Answer Date Recorded Do you think completing more education or training, like finishing a GED, going to college, or learning a trade, would be helpful for you? N/A 12/16/2024 Employment and Income Answer Date Recor ded During the last four weeks, have you been actively looking for work? No 12/16/2024 Living Situation Answer Date Recorded What is your living situation? Unrecognized valu e 12/16/2024 Comments No Sex and Gender Information Value Date Recorded Sex Assigned at Not on file Legal Sex Female 8:19 PM EST Gender Identity Not on file Sexual Orientation Not on file documented as of this encounter Plan of Treatment Upcoming Encounters Date Type Department Care Team (Late st Contact Info) Description 05/25/2025 11:00 AM EST Office Visit Obstetrics and Gynecology - [address] [phone] Jolanta Bruce CNM [address] [place] [address] 12/25/2025 3:00 PM EDT Office Visit Adult Medicine [address] [phone] Lydia Gallegos MD [address] [place], [place] documented as of this encounter Visit Diagnoses Not on filedocumented in this encounter Additional Health Concerns Assessment Noted Time PHQ-9 Depression Total Score: 6 12/17/19 25 2:02 PM EDT documented as of this encounter Care Teams Deputy District Customs Director Relationship Specialty Start Date End Date Lydia Gallegos MD [address] [place] [address] PCP - General 04/12/22 documented as of this encounter
--- OUTSIDE RECORDS SUMMARY | 2025-05-06 13:20 | XMS_ITS ---
Author Name [facility] Organization Unknown Care Team Organization Name Specialty Phone Email Start Date End Da te [facility] Lydia Fink Primary Care 08/16/2022 01/28/2024 [facility] Alvarado Blandon Primary Care 06/19/202201/09 [facility] Yazmin Mancini Primary Care 04/18/20222023
--- OUTSIDE RECORDS SUMMARY | 2025-05-06 13:20 | XMS_ITS | Encounter Summary ---
Author Organization [employer] Address [address] [place] [address] Care Team Providers Care Electron Beam Operator Name Role Phone Lydia Gallegos MD Primary Care Prov ider Encounter Details Date Type Department Care Team (Late st Contact Info) Description 03/20/2025 Results Follow-Up Obstetrics and Gynecology - [address] [phone] Jolanta Bruce CN [address] [place] [address] Social History Tobacco Use Types Packs/Day Years [...] care for your loved ones. For example, early childhood services coordinator or elderly care for an older adult? [...] as of this encounter Progress Notes * Nancy Moreno - 03/20/2025 9:58 AM EDT Pt asking for call back from nurse. Has another questions documented in this encounter Plan of Treatment Upcoming Encounters Date Type Department Care Team (Late st Contact Info) Description 05/25/2025 11:00 AM EST Office Visit Obstetrics and Gynecology - [address] [phone] Jolanta Bruce CNM [address] [place] [address] 12/25/2025 3:00 PM EDT Office Visit Adult Medicine East - [address] [phone] Lydia Gallegos MD [address] [place] [address] documented as of this encounter Visit Diagnoses Not on filedocumented in this encounter Additional Health Concerns Assessment Noted Time PHQ-9 Depression Total Score: 6 12/17/19 25 2:02 PM EDT documented as of this encounter Care Teams Electron Beam Operator Relationship Specialty Start Date End Date Lydia Gallegos MD [address] [place] [address] PCP - General 04/12/22 documented as of this encounter
--- OUTSIDE RECORDS SUMMARY | 2025-05-06 13:20 | XMS_ITS | Clinical Summary ---
Author Organization [address] Address [address] [place] [phone] Phone Care Team Providers Care Chemistry Department Chair Name Role Phone Lydia Gallegos MD Primary Care Prov ider Allergies Active Allergy Reactions Criticality Noted Date Comments Hydrochlorothiazide Low 03/26/2024 Caused SHREYA and stone per [facility] hospital admission in 03/2024 Reaction Type: Side Effect Medications cholecalciferol, vitamin D3, (D3-50 CHOLECALCIFEROL ORAL) Take by mouth. Active cyanocobalamin-eric mamide (B-12 Plus) 5,000-100 mcg tablet, sublingual Place under the tongue. Active LORazepam (ATIVAN) 0.5 mg tablet Take 1 Tablet by mouth. Active potassium citrate (UROCIT-K) 10 mEq (1,080 mg) CR tablet Take 20 mEq by mouth. - Oral Active amLODIPine (NORVASC) 2.5 mg tablet TAKE 1 TABLET BY MOUTH EVERY DAY 90 tablet 1 5 Active ergocalciferol (VITAMIN D-2) 1,250 mcg (50,000 unit) capsule TAKE 1 CAPSULE ORALLY EVERY MONTH FOR 10 MONTHS 5 Active melatonin 5 mg tablet Take 1 tablet (5 mg total) by mouth at bedtime as needed. 5 Active sertraline (ZOLOFT) 25 mg tablet Take 1 tablet (25 mg total) by mouth 1 (one) time each day in the morning. 5 Active valACYclovir (VALTREX) 1 gram tablet Take 1 tablet (1,000 mg total) by mouth 1 (one) time each day. for 5 days 4 Active ferrous gluconate (FERGON) 324 mg (38 mg iron) tablet TAKE 1 TABLET BY MOUTH DAILY (WITH BREAKFAST) FOR 90 DAYS. 90 tablet 1 5 Active fluconazole (DIFLUCAN) 150 mg tabletIndications:Y east infection Take 1 tablet (150 mg total) by mouth 1 (one) time for 1 dose. Take 1 tablet. If symptoms persist after 3 days , take second tablet. 2 tablet 5 025 Active Problems Problem Noted Date Diagnosed Date Kidney stones 03/28/2024 Overview (03/28/2024): Since she was 29 years old, Dr. Wang Abnormal mammogram 12/24/2023 Overview (03/28/2024): 12/24/2023: Conclusions: Lobulated mass on the mammogram without ultrasonographic correlation. Findings were explained to the patient. She was suggested to have stereotactic core biopsy. However patient declined the biopsy. Instead she would like to have short-term follow-up examination. 3 months follow-up mammogram was scheduled. BI-RADS 4 ,Suspicious abnormality. Stage 3a chronic kidney disease (CMS/HCC V24, CM S/HCC V28) 09/07/2023 Assessment & Plan (12/16/2024 2:59 PM EDT): Hx of medullary sponge kidney. She follows regularly with nephrology. Orders: CBC and differential; Future Comprehensive metabolic panel; Future Iron and TIBC; Future Ferritin; Future Uric acid; Future Vitamin B12; Future Ambulatory referral to Nutrition Services; Future Papanicolaou smear of cervix with positive high [...] (03/28/2024): Dr. Wang HTN (hypertension), benign 02/05/2018 Assessment & Plan (12/16/2024 2:59 PM EDT): Well-controlled on amlodipine. She follows regularly with nephrology. Medullary sponge kidney 11/12/2017 Overview (03/28/2024): Dr. Schroeder - nephrology Dr. 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/25/2016 Encounters Date Type Department Care Team Description 04/21/2025 Results Follow-Up Obstetrics and Gynecology - [address] [phone] Jolanta Bruce CNM 04/20/2025 4:43 PM EST - 04/20/2025 11:59 PM EST Hospital Encounter Radiology Department - [address] [phone] Left-sided pelvic pain Discharge Disposition: Home or Self Care 04/15/2025 Telephone Obstetrics and Gynecology - [address] [phone] Jolanta Bruce CNM 03/26/2025 Telephone Obstetrics and Gynecology - [address] [phone] Jolanta Bruce CNM 03/20/2025 Results Follow-Up Obstetrics and Gynecology - [address] [phone] Jolanta Bruce CNM 03/18/2025 Telephone Obstetrics and Gynecology [address] [phone] Jolanta Bruce CNM 03/16/2025 1:15 PM EDT Office Visit Obstetrics and Gynecology - [address] [phone] Jolanta Bruce CNM BV (bacterial vaginosis) (Primary Dx); Left-sided pelvic pain; Elevated blood pressure reading in office with diagnosis of hypertension from Last 3 Months Immunizations Immunization Administration Dates Next Due Influenza trivalent, with pr eservative (Fluzone; Afluria) 6mo and older 06/22/2014,03/31/2011 MMR, measles mumps and rubel la Live (Priorix; M-M-R II) 12mo and older 07/02/1990,10/08/1978 PPD Test 10/09/2018 Td Tetanus diptheria (Tdvax) 7yo and older 12/10 Tdap Tetanus diptheria acell ular pertussis (Boostrix; Adacel) 7yo and older 08/03/2011 Surgical History Surgery Date Site/Laterality Comments SECTION PROCEDURE: [place] DELIVERY ONLY; COMMENT: x2 KIDNEY STONE SURGERY PROCEDURE: [facility] NEPHROLITHOTOMY REMOVAL CALCULUS; COMMENT: [facility] ECTOPIC SURGERY 11/2015 PROCEDURE: HISTORICAL ECTOPIC SURGERY HERNIA REPAIR Right PROCEDURE: HISTORICAL HERNIA REPAIR/ING OTHER SURGICAL HISTORY 10/20/2019 PROCEDURE: [facility] PYELOTOMY WITH REMOVAL CALCULUS; COMMENT: attempted removal of stone by dr. 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 For example, summer child caregiver or elderly care for an older adult? [...] Livin g Live Births 4 3 3 0 1 0 3 3 Date Outcome GA Total Labor Labor/2nd/3rd Weight Sex Type Anes PTL Aaliyah A1 A5 Name Clin Term Vag-S pont Living Term Vag-S pont Living Term Vag-S pont Living 6 Ectopic Last Filed Vital Signs Vital Sign Reading Time Taken Comments Blood Pressure 164/110 03/16/2025 1:16 PM EDT Pulse 60 03/16/2025 1:16 PM EDT Temperature 36.4 C (97.6 F) 12/16/2024 1:59 PM EDT Respiratory Rate 14 03/16/2025 1:16 PM EDT Oxygen Saturation - - Inhaled Oxygen Concentration - - Weight 69.6 kg (153 lb 6.4 oz) 03/16/2025 1:16 P M EDT Height 157.5 cm (5' 2 ) 12/16/2024 1:59 PM EDT Body Mass Index 28.06 12/16/2024 1:59 PM EDT Plan of Treatment Upcoming Encounters Date Type Department Care Team (Late st Contact Info) Description 05/25/2025 11:00 AM EST Office Visit Obstetrics and Gynecology - [address] [phone] Jolanta Bruce CNM [address] [place] [address] 12/25/2025 3:00 PM EDT Office Visit Adult Medicine [facility] - [address] [phone] Lydia Gallegos MD [address] [place] [address] Health Maintenance Due Date Last Done Comments Colorectal Cancer Screening: Colonoscopy 1977 Hepatitis B Vaccines (1 of 3 - 19+ 3-dose series) 1996 Breast Cancer Screening 03/25/2024 12/24/2023, 12/23 COVID-19 Vaccine ( season) 2025 08/24/2021, 03/16/2021, 02/11/2021 Influenza Vaccine (#1) 2025 06/22/2014, 2010 Social Influencers of Health Screening 12/16/2025 12/16/2024 Hypertension/CHF/CAD Annual BMP Blood Test 01/16/2026 01/16/2025, 03/26/2024, 03/26/2024, Additional history exists Cholesterol Screening (Lipid Panel) 11/18/2028 11/19/2023, 11/19/2023 Cervical Cancer Screening: HPV 07/30/2029 07/30/2024, 07/06/2023 DTaP,Tdap,and Td Vaccines (3 - Td or Tdap) 12/10/2033 12/11/2023, 08/03/2011 RSV Immunization Adult Patients (1 - 1-dose 75+ series) 2052 MMR Vaccines Completed 07/02/1990, 10/08/1978 Hepatitis C Screening Completed 11/04/2021 HIV Screening Completed 09/08/2022 Depression Screening Completed 12/16/2024, 11/15/19 24 HIB Vaccines Aged Out No longer eligi [...] 5 Years) and At-Risk Patients (6 to 49 Years) Aged Out No longer eligible based on patient's age to complete this topic RSV Immunization Patients Under 20 months Aged Out No longer eligible based on patient's age to complete this topic Varicella Vaccines Aged Out No longer eligible based on patient's age to complete this topic Procedures Procedure Name Priority Date/Time Associated Diagnosis Comments US PELVIS NON OB COMPLETE Routine 04/20/2025 5:41 PM EST Left-sided pelvic pain POC URINE AUTO W/O MICRO Routine 03/16/2025 1:49 PM EDT Left-sided pelvic pain CULTURE URINE Routine 03/16/2025 1:43 PM EDT BV (bacterial vaginosis) POC WET MOUNT Routine 03/16/2025 1:33 PM EDT BV (bacterial vaginosis) COMPREHENSIVE METABOLIC PANEL Routine 01/16/2025 11:08 AM EDT Adult general medical examination Screen for colon cancer Stage 3a chronic kidney disease (CMS/HCC V24, CMS/HCC V28) HPV WITH REFLEX GENOTYPE Routine 07/30/2024 1:53 PM EST Encounter for annual routine gynecological examination Screening mammogram for breast cancer Mammogram abnormal DIAGNOSTIC MAMMOGRAPHY INCLUDING CAD BILATERAL Routine 12/24/2023 10:27 AM EDT Unspecified lump in the right breast, upper outer quadrant LIPID PANEL Routine 11/19/2023 DEPRESSION SCREENING Routine 11/15/2023 HIV SCREENING Routine 09/08/2022 HEPATITIS C SCREENING Routine 11/04/2021 from Last 3 Months or Most Recently Relevant to Health Maintenance Results * US Pelvis Non OB Complete (04/20/2025 5:41 PM EST) Anatomical Region Laterality Modality Body, Pelvis Ultrasound 04/21/2025 7:32 AM EST Impressions 04/21/2025 7:38 AM EST Limited exam. Bulbous appearance of the uterus which can be seen with uterine fibroids and adenomyosis. No right ovarian abnormality. Left ovary not visualized. -------- FINAL REPORT -------- Dictated By: Delfina Velazquez Dictated Date: 04/21/2025 07:32 ET Assigned Physician: Delfina Velazquez Reviewed and Electronically Signed By: Delfina Velazquez Signed Date: 04/21/2025 07:38 ET Workstation ID: [id number] Transcribed By: Self Edit Transcribed Date: 04/21/2025 07:32 ET Narrative 04/21/2025 7:38 AM EST PELVIC ULTRASOUND HISTORY: Pelvic pain. COMPARISON: 03/28/2023 FINDINGS: Transabdominal pelvic ultrasound was performed. Patient declined endovaginal ultrasound which limits the exam. Exam also limited by patient body habitus. Uterus: 10.7 x 8.4 x 7.9 cm in size. Uterus is retroverted with bulbous appearance. Endometrium: Difficult to visualize. What appears to represent a portion of the endometrium measures 0.6 cm in thickness. Right ovary: Normal in size measuring 2.8 x 2.8 x 2.6 cm without abnormality. Left ovary: Not visualized. Cul-de-sac: No free fluid. Procedure Note Delfina Velazquez MD - 04/21/2025 PELVIC ULTRASOUND HISTORY: Pelvic pain. COMPARISON: 03/28/2023 FINDINGS: Transabdominal pelvic ultrasound was performed. Patient declinedendovaginal ultrasound which limits the exam. Exam also limited by patientbody habitus. Uterus: 10.7 x 8.4 x 7.9 cm in size. Uterus is retroverted with bulbousappearance. Endometrium: Difficult to visualize. What appears to represent a portionof the endometrium measures 0.6 cm in thickness. Right ovary: Normal in size measuring 2.8 x 2.8 x 2.6 cm withoutabnormality. Left ovary: Not visualized. Cul-de-sac: No free fluid. IMPRESSION: Limited exam. Bulbous appearance of the uterus which can be seen withuterine fibroids and adenomyosis. No right ovarian abnormality. Left ovarynot visualized. -------- FINAL REPORT -------- Dictated By: Delfina Velazquez Dictated Date: 04/21/2025 07:32 ET Assigned Physician: Delfina Velazquez Reviewed and Electronically Signed By: Delfina Velazquez Signed Date: 04/21/2025 07:38 ET Workstation ID: [id number] Transcribed By: Self Edit Transcribed Date: 04/21/2025 07:32 ET Jolanta Bruce [facility] IMG US PROCEDURES Final Result * (ABNORMAL) POC Urine Auto W/O Micro (03/16/2025 1:49 PM EDT) Leukocytes UA POC Negative Negative Nitrite UA POC Negative Negative Urobilinogen UA POC Negative Negative Protein UA POC Positive(A) Negative PH UA POC 5.0 5.0 - 9.0 Blood UA POC Negative Negative, Trace Specific Nellis UA POC 1.010 1.001 - 1.035 Ketones UA POC Negative Negative Bilirubin UA POC Negative Negative Glucose UA POC Normal Normal, Trace Urine Urine specimen obtained by clean catch procedure / Unknown 03/16/2025 1:49 PM EDT Jolanta FREITAS POINT OF CARE TEST ENTER/EDIT O RDERABLES Final Result * (ABNORMAL) Culture urine (03/16/2025 1:43 PM EDT) Pathologist [facility] Culture, Urine >=100,000 CFU/mL Streptococcus viridans group(A) 03/18/2025 8:[address] [facility] Comment: Susceptibility testing not routinely performed. If further therapeutic information is required, please consult an infectious disease specialist. The organism value for this result has been updated. These results have been appended to the previously preliminary verified report. Urine Urine specimen obtained by clean catch procedure / Unknown Non-blood Collection / Unknown 03/16/2025 1:43 PM EDT 03/16/2025 1:43 PM EDT Jolanta Bruce [facility] MICROBIOLOGY - GENERAL ORDDiana [facility] Final Result [facility] [address] [place] [address], [place] [phone] * (ABNORMAL) POC Wet Mount (03/16/2025 1:33 PM EDT) Pathologist [facility] Trichomonas, Wet Prep POC Absent Absent Yeast, Wet Prep POC Negative Not Applicable, Negative Clue Cells, Wet Prep POC Positive(A) Not Applicable, Negative Whiff Test, Wet Prep POC Positive(A) Not Done, Negative PH FL Type POC 5.0 Vaginal Fluid Vaginal structure / Unknown 03/16/2025 1:33 PM EDT Jolanta Bruce [facility] POINT OF CARE TEST ENTER/EDIT O RDERABLES Final Result * (ABNORMAL) Comprehensive metabolic panel (01/16/2025 11:08 AM EDT) Pathologist [facility] Sodium 140 133 - 145 mmol/L LAB CHEMISTRY METHOD 01/16/2025 4:[address] [facility] Potassium 4.2 3.5 - 5.5 mmol/L LAB CHEMISTRY METHOD 01/16/2025 4:20 PM [facility] Chloride 106 96 - 110 mmol/L LAB CHEMISTRY METHOD 01/16/2025 4:20 PM [facility] CO2 26 21 - 32 mmol/L LAB CHEMISTRY METHOD 01/16/2025 4:20 PM [facility] Anion Gap 8 3 - 11 LAB CHEMISTRY METHOD 01/16/2025 4:20 PM [facility] Glucose 87 70 - 100 mg/dL LAB CHEMISTRY METHOD 01/16/2025 4:20 PM [facility] BUN 20 5 - 25 mg/dL LAB CHEMISTRY METHOD 01/16/2025 4:20 PM [facility] Creatinine 1.29(H) 0.50 - 1.10 mg/dL LAB CHEMISTRY METHOD 01/16/2025 4:20 PM [facility] eGFR 52(L) >=60 mL/min/1. 73m2 LAB CHEMISTRY METHOD 01/16/2025 4:20 PM [facility] Comment:Calculation based on the Chronic Kidney Disease Epidemiology Collaboration (CKD-EPI) equation refit without adjustment for race. BUN/Creatinine Ratio 15.5 LAB CHEMISTRY METHOD 01/16/2025 4:20 PM [facility] Calcium 9.7 8.5 - 10.5 mg/dL LAB CHEMISTRY METHOD 01/16/2025 4:20 PM [facility] AST (SGOT) 14 10 - 42 unit/L LAB CHEMISTRY METHOD 01/16/2025 4:20 PM [facility] ALT (SGPT) 15 10 - 60 unit/L LAB CHEMISTRY METHOD 01/16/2025 4:20 PM [facility] Alkaline Phosphatase 85 42 - 121 unit/L LAB CHEMISTRY METHOD 01/16/2025 4:20 PM [facility] Total Protein 6.9 6.0 - 8.0 g/dL LAB CHEMISTRY METHOD 01/16/2025 4:[address] [facility] Albumin 3.5 3.2 - 5.0 g/dL LAB CHEMISTRY METHOD 01/16/2025 4:[address] [facility] Total Bilirubin 0.3 0.0 - 1.4 mg/dL LAB CHEMISTRY METHOD 01/16/2025 4:[address] [facility] Blood Venous blood specimen / Unknown Venipuncture / Unknown 01/16/2025 11:08 AM EDT 01/16/2025 11:08 AM EDT Lydia Gallegos MD LAB BLOOD ORDERABL ES Final Result Performing Organization Address City/[facility]/ZIP Co de Phone Number [facility] [address] [place] [address], [place] [phone] * HPV with reflex genotype (07/30/2024 1:53 PM EST) HPV Negative Negative LAB MICROBIOLOGY METHOD 07/31/2024 3:[address] [facility] Brushing/Spatula Cervix uteri structure / Unknown 07/30/2024 1:53 PM EST 07/31/2024 7:17 AM EST us Jolanta Bruce CNM LAB MOLECULAR DIAGNOSTICS ORDER ROBERTO CARLOS Final Result Performing Organization Address City/[facility]/ZIP Co de Phone Number [facility] [address] [place] [address], [place] [phone] * DIAGNOSTIC MAMMOGRAPHY INCLUDING CAD BILATERAL (12/24/2023 [...] right breast in CC and MLO projections. Marker was placed over the area of concern in the upper outer right breast. Breast tissue is of mixed density. There is approximately 7.6 mm lobulated mass in the upper outer right breast, visualized on all images. There is no other masses, suspicious calcifications or areas of architectural distortion. Targeted ultrasound of the right breast. Examination was directed by the patient to the area of concern. Entire upper outer right breast was scanned. No cystic or solid masses or acoustic shadowing identified. Conclusions: Lobulated mass on the mammogram without ultrasonographic correlation. Findings were explained to the patient. She was suggested to have stereotactic core biopsy. However patient declined the biopsy. Instead she would like to have short-term follow-up examination. 3 months follow-up mammogram was scheduled. BI-RADS 4 ,Suspicious abnormality. Procedure Note Mahi Santos MD - 03/26/2024 This is a summary [...] mammogram was scheduled. BI-RADS 4 ,Suspicious abnormality. Jolene POTTER IMG BI PROCEDURES Final Result * (ABNORMAL) Lipid panel (11/19/2023) [facility] LDL/HDL Ratio 4 0 - 4 Triglycerides 185(A) 0 - 150 mg/dL Cholesterol 199 0 - 200 mg/dL HDL 51 >=40 mg/dL LDL Cholesterol 111(A) 0 - 100 mg/dL Blood Venous blood specimen / Unknown Result [facility] Provider LAB BLOOD ORDERABLES Avril l Result * Depression Screening (11/15/2023) [facility] Depression Screening Abstracted Result [facility] Provider HEALTH MAINTENANCE Final Result * HIV Screening (09/08/2022) [facility] HIV Screening Abstracted Result [facility] Provider HEALTH MAINTENANCE Final Result * Hepatitis C Screening (11/04/2021) [facility] Hepatitis C Screening Abstracted [facility] Provider HEALTH MAINTENANCE Final Result from Last 3 Months or Most Recently Relevant to Health [place] [phone] [facility] Care Teams Chemistry Department Chair Relationship Specialty Start Date End Date Lydia Gallegos MD NPI: [id number] [place] [phone] PCP - General 04/12/22
== END 2025-05-06 10:53 | disposition home or self-care (01) ==
LOC: HO.US 10:52
PROVIDERS: PCP Internal Medicine; Visit Provider Internal Medicine Nephrology
DX: N20.0 Calculus of kidney (principal)
CPT/HCPCS: 76775

== ENCOUNTER → 2025-05-06 10:58 | Outpatient (BNV) | payer OTHER, SELFPAY | PROVIDERS: PCP Internal Medicine; Visit Provider General Practice | DX: N20.0 Calculus of kidney (principal); N13.30 Unspecified hydronephrosis | CPT/HCPCS: 76775 ==